=== PATIENT | female | born 1950 | race African-American/Black ===

== ENCOUNTER 2017-02-02 23:05 | Inpatient (IN) | payer OTHER ==
[~2017-02-02] VITALS: Ht 162.6 cm; Wt 113.4 kg
--- NOTE | ~2017-02-02 | 2DMMODE ---
[facility] [address] [place] [address] 2 D/M-MODE ECHOCARDIOGRAM Name: ANGELIQUE BULLOCK Room #: 427-P ADM IN M.R.#: [id number] Admission: 02/03/17 Attend Phys: Robert Prater, Discharge: Date of : 48 Date of Service: 02/03/17 1120 Report #: [id number] THIS REPORT FOR: //name// APPROVED REPORT Study performed: 02/03/2017 09:50:02 EXAM: Comprehensive 2D, Doppler, and color-flow Echocardiogram Patient Location: Bedside Room #: 427 Status: routine BSA: 2.15 HR: 55 bpm BP: 126/55 mmHg Other Information Study Quality: Adequate Indications Diabetes Edema 2D Dimensions RVDd: 44.51 mm LVEF(%): 64.91 (>50%) IVSd: 12.91 (7-11mm) LVOT Diam: 20.93 (18-24mm) LVDd: 40.55 mm PWd: 11.66 (7-11mm) Ascending Ao: 29.01 (22-36mm) LVDs: 26.32 (25-40mm) Aortic Root: 28.85 mm IVC: 24.00 mm Cortez's LVEF: 64.91 % Volumes Left Atrial Volume (Systole) Single Plane 4CH: 104.56 mL Single Plane 2CH: 71.56 mL LA ESV Index: 43.00 mL/m2 Aortic Valve AoV Peak Td.: 1.27 m/s AO Peak Gr.: 6.42 mmHg LVOT Max P.40 mmHg LVOT Max V: 0.92 m/s GRAY Vmax: 2.50 cm2 Mitral Valve E/A Ratio: 2.5 MV Decel. Time: 193.93 ms [facility] [place] [address] 2 D/M-MODE ECHOCARDIOGRAM Name: ANGELIQUE BULLOCK Room #: 427-P ADM IN M.R.#: [id number] Admission: 02/03/17 Attend Phys: Robert Prater, Discharge: Date of : 48 Date of Service: 02/03/17 1120 Report #: [id number] E Max Td.: 1.15 m/s MV A Td.: 0.46 m/s MV PHT: 56.24 ms IVRT: 69.20 ms Pulmonary Valve PV Peak Td.: 1.04 m/s PV Peak Gr.: 4.34 mmHg AK End Vmax: 1.06 m/s Pulmonary Vein P Vein S: 0.23 m/s P Vein A: 0.14 m/s P Vein D: 0.54 m/s P Vein A Dur.: 110.7 msec P Vein S/D Ratio: 0.43 Tricuspid Valve TR Peak Td.: 3.18 m/s TR Peak Gr.: 40.52 mmHg PA Pressure: 56.00 mmHg Left Ventricle The left ventricle is normal size. Mild concentric left ventricular hypertrophy. The left ventricular systolic function is normal. The left ventricular ejection fraction is within the normal range. LVEF is 60-65%. The diastolic function is abnormal. Findings suggest the left atrial pressure is elevated. Right Ventricle Right ventricle is dilated. Atria Left atrium is dilated. Right atrium is dilated. Aortic Valve The aortic valve is normal in structure. No aortic regurgitation is present. There is no aortic valvular stenosis. Mitral Valve The mitral valve is normal in structure. Mild mitral regurgitation. No evidence of mitral valve stenosis. Tricuspid Valve The tricuspid valve is normal in structure. There is moderate tricuspid regurgitation. The right atrial pressure is estimated at mmHg. There is moderate pulmonary hypertension. Pulmonic Valve [facility] [address] [place] [address] 2 D/M-MODE ECHOCARDIOGRAM Name: ANGELIQUE BULLOCK Room #: 427-P ADM IN .R.#: [id number] Admission: 02/03/17 Attend Phys: Robert Prater, Discharge: Date of : 48 Date of Service: 02/03/17 1120 Report #: [id number] The pulmonary valve is normal in structure. Trace to mild pulmonic regurgitation. Great Vessels The aortic root is normal in size. The inferior vena cava is dilated with no inspiratory collapse. Pericardium There is no pericardial effusion. <Conclusion> The left ventricle is normal size. Mild concentric left ventricular hypertrophy. The left ventricular systolic function is normal. Right ventricle is dilated. Left atrium is dilated. Right atrium is dilated. The aortic valve is normal in structure. Mild mitral regurgitation. There is moderate tricuspid regurgitation. The right atrial pressure is estimated at mmHg. There is moderate pulmonary hypertension. <ELECTRONICALLY SIGNED> By: Bari Luong MD 02/03/171119 19 19 Bari Luong MD /INF
--- NOTE | ~2017-02-02 | EKG ---
[address] [place] [address] ELECTROCARDIOGRAM REPORT Name: ANGELIQUE BULLOCK Room #: 427-P ADM IN M.R.#: [id number] Admission: 02/03/17 Attend Phys: Robert Prater MD Discharge: Date of : 48 Report #: [id number] THIS REPORT FOR: //name// [facility] Test Date: 2017-02-03 Test Time: 06:38:10 Pat Name: ANGELIQUE BULLOCK Department: Room: [facility] Gender: F Structural Designer: ALEXUS : 1950 Requested By: Kennedy Olivarez Order Number: [id number] MD: Henri Mattson Measurements Intervals [place] Rate: 55 P: 51 [place]: 210 QRS: 35 QRSD: 69 T: QT: 659 QTc: 631 Interpretive Statements Sinus rhythm Borderline low voltage, extremity leads Nonspecific T abnormalities, lateral leads Compared to ECG 04/21/2016 06:53:44 No significant changes Electronically Signed On 02-03-2017 13:26:21 SURGICAL COORDINATOR by Henri Mattson [email or web address] <ELECTRONICALLY SIGNED> By: Henri Mattson MD 02/03/17 1326 0638 0638 Henri Mattson MD /EPI
--- NOTE | ~2017-02-02 | HC ---
[facility] [place] [address] [address] [place] [address] CONSULTATION Name: ANGELIQUE BULLOCK Room #: 427-P ADM IN M.R.#: [id number] Admission: 02/03/17 Attend Phys: Robert Prater MD Discharge: Date of : 48 Report #: [id number] THIS REPORT FOR: //name// CC: FAM physician/PCP Robert Prater DATE OF SERVICE: 02/03/2017 PERSONAL PHYSICIAN: Robert Prater MD CHIEF COMPLAINT: Left posterior thigh ulcer. HISTORY OF PRESENT ILLNESS: This is a 66-year-old black female who essentially has been bedridden for the past several years, who states that she underwent a knee replacement in 2012, and has never been able to ambulate since that time. The patient was hospitalized back in April to [facility], at that time was noted to have a small approximately stage 2 decubitus ulcer in her left posterior thigh. The patient now has been readmitted for leg edema and pain in her left lower extremity. The patient was noted on admission to have a large decubitus ulcer in that region. The patient states that she and her daughter have been caring for this on their own. The patient states she has no other associated ulcerations that she knows of. We have been asked to assist in the care of this at this time. PAST MEDICAL HISTORY: Significant for history of previous kidney failure, bilateral leg pain and swelling, decubitus ulcer of the left posterior thigh, generalized debility, and chronic lower extremity edema. CURRENT MEDICATIONS: Multiple and I reviewed the patient's medication list. DRUG ALLERGIES: None. SOCIAL HISTORY: The patient does not smoke or drink alcohol. FAMILY HISTORY: Not pertinent to current medical condition. REVIEW OF SYSTEMS: CONSTITUTIONAL: The patient denies fevers or chills. NEUROLOGIC: The patient has overall generalized weakness, but no isolated weakness in arms or legs. EYES: No complaints. ENT: No complaints. CARDIAC: The patient has chronic lower extremity edema without chest pain or palpitations. RESPIRATORY: The patient denies mild shortness of breath with associated cough or wheezes. [facility] [address] [place] [address] CONSULTATION Name: AGNELIQUE BULLOCK Room #: 427-P [facility] IN M.R.#: [id number] Admission: 02/03/17 Attend Phys: Robert Prater MD Discharge: Date of : 48 Report #: [id number] GASTROINTESTINAL: The patient denies nausea, vomiting, or abdominal pain. GENITOURINARY: The patient denies urgency or frequency. MUSCULOSKELETAL: The patient has pain in both legs, left greater than right. SKIN: There is an unstageable decubitus ulcer in her left posterior thigh with stringy slough. PHYSICAL EXAMINATION: VITAL SIGNS: T-max 36.3, pulse 54, respiratory rate 18, and BP 138/88. GENERAL: This is an alert, oriented x3, pleasant black female who is morbidly obese, who is in no acute distress. HEENT: Normocephalic, atraumatic. Mucous membranes are moist. Pupils are round. Sclerae white. NECK: Supple without JVD. LUNGS: Clear. HEART: Regular without murmur. ABDOMEN: Obese, soft, nontender. NEUROLOGIC: Cranial nerves 2-12 are grossly intact. Motor and sensory are grossly intact. EXTREMITIES: The patient moves all extremities spontaneously. Bilateral heels are intact. Distal pulses are intact. Evaluation of sacrococcygeal and gluteal area reveals no signs of pressure changes or ulcerations. Evaluation of the left posterior thigh shows an ulceration approximately 10 x 8 cm, it is foul-smelling with seropurulent drainage. There is no significant tunneling, tracking, or undermining. The wound bed is nearly 100% slough covered with stringing necrotic tissue. Periulcer itself is otherwise intact without significant erythema, warmth, or signs of cellulitis. There is no involvement of deeper structures that I can see. LABORATORY values: White count 7.8, hemoglobin 8.1. Albumin is markedly low at 1.8. Prealbumin is markedly low at 4.2. WOUND CARE COURSE: At this time, I think this wound needs would be better debrided surgically. I will put a consult in for surgeon's to evaluate the patient. We will also start the patient on Dakin's 50% moist gauze to the area cover with an ABD, twice daily. We will order a low air loss mattress for this patient, have turned every 2 hours. We will as possible. We will attempt to try to maximize her oral supplementation of protein for healing. IMPRESSION: 1. Unstageable decubitus ulcer, left posterior thigh. 2. Severe protein-calorie malnutrition with albumin of 1.8, prealbumin of 4.3. 3. Diabetes mellitus. 4. Morbid obesity. 5. Generalized debility. [facility] [address] [place] [address] CONSULTATION Name: ANGELIQUE BULLOCK Room #: 427-P ADM IN M.R.#: [id number] Admission: 02/03/17 Attend Phys: Robert Prater MD Discharge: Date of : 48 Report #: [id number] PLAN: Described in length as above. We will continue to follow the patient. I appreciate the ability to consult. By: 1025 1451 Osvaldo Millard MD /nt
--- NOTE | ~2017-02-02 | HC ---
[facility] [place] [address] [place] [address] CONSULTATION Name: ANGELIQUE BULLOCK Room #: 427-P ADM IN M.R.#: [id number] Admission: 02/03/17 Attend Phys: Robert Prater MD Discharge: Date of : 48 Report #: [id number] THIS REPORT FOR: //name// CC: TELMA physician/PCP Robert Prater TYPE OF REPORT: Infectious diseases consultation. REASON FOR CONSULTATION: I was asked to evaluate concerning left thigh soft tissue infection complicating a decubitus ulcer. HISTORY OF PRESENT ILLNESS: The patient was a 66-year old with underlying history of venous stasis disease with lymphedema along with hypertension and diabetes. She has had increased pain in the left posterior thigh for the last several months. She ran out of pain medications and came into the Emergency Room on 02/03/2017. She has had increased swelling in both lower extremities. She has been noncompliant with many of her medications. She is essentially bedridden for the last several years. She notes that the left posterior thigh wound started draining several weeks ago. ALLERGIES: None known. MEDICATIONS: As noted on her MAR, which were reviewed. These include nitrofurantoin, Tylenol, tramadol, Zanaflex, potassium, melatonin, amlodipine and Lasix. PAST MEDICAL HISTORY: Right total knee arthroplasty in 2013, hysterectomy, chronic lymphedema, hypertension, hyperlipidemia, gastroesophageal reflux, diabetes and chronic kidney disease. FAMILY HISTORY: Noncontributory. SOCIAL HISTORY: Nonsmoker. No significant alcohol intake. REVIEW OF SYSTEMS: Denies any cough, sputum, nausea, vomiting or diarrhea. She now has an indwelling Beasley catheter. PHYSICAL EXAMINATION: VITAL SIGNS: Afebrile and hemodynamically stable. GENERAL: She was alert and cooperative. She is just back from surgical debridement earlier this afternoon. HEENT: Remarkable for poor dentition. NECK: Supple. LUNGS: Clear. HEART: Regular. ABDOMEN: Obese, soft and nontender. EXTREMITIES: Left posterior thigh had a fairly large wound that has recently [facility] [address] [place] [address] CONSULTATION Name: ANGELIQUE BULLOCK Room #: 427-P ADM IN M.R.#: [id number] Admission: 02/03/17 Attend Phys: Robert Prater MD Discharge: Date of : 48 Report #: [id number] been debrided. Had a small amount of bloody drainage. She had induration around this region. Moderate amount of tenderness. A 3+ lymphedema in both lower extremities. LABORATORY STUDIES: Sodium 142, potassium 4.3, bicarbonate of 34 and creatinine 1.5. Alkaline phosphatase 315. Albumin 1.8. Hemoglobin 8.1; WBC 7.8 and platelet count 281,000. Differential unremarkable except for 12% eosinophils. It is noted that she had a higher eosinophil count in February of this year, up to 28,000. Cultures of blood and her thigh are pending. Urine culture pending. Urinalysis with many wbc's and many bacteria. RADIOLOGICAL DATA: MRI of the pelvis, extensive left thigh cellulitis and decubitus ulceration along the upper posterior thigh with associated myositis. No evidence of osteomyelitis. Chest x-ray: Cardiomegaly without congestive heart failure. Left lower lobe atelectasis with elevation of left hemidiaphragm. IMPRESSION: A 66-year old with obesity, diabetes and chronic lymphedema; presents with urinary tract infection and left thigh infected decubitus wound. This has just been debrided. I suspect polymicrobial infection. We would recommend continuing broad antibiotic coverage, pending further culture results. It is noted that her previous cultures from earlier in the year from the urine has included pseudomonas, Enterococcus group B strep and E. coli. She has renal insufficiency, which is longstanding. She also has anemia and mild eosinophilia. RECOMMENDATIONS: Recommend vancomycin and Zosyn adjusted for her renal insufficiency. Await cultures of the urine and wound. Continue with wound care and offloading. Control blood glucose and attempt to control her edema as much as possible. <ELECTRONICALLY SIGNED> By: Kennedy Ratliff MD 02/04/17 1215 19 0457 Kennedy Ratliff MD /nt
--- NOTE | ~2017-02-02 | S ---
[facility] [place] [address] [address] [place] [address] SURGICAL PATH RPT PROCEDURE Name: KERRI BULLOCK Room #: 427-P DIS IN M.R.#: [id number] Admission: 02/03/17 Date of : 48 Discharge: 02/07/17 Report #: [id number] Path Case #: [id number] PATHOLOGY REPORT COLLECTION DATE: 02/03/2017 RECEIVED DATE: 02/06/2017 SUBMITTING PHYS: Dr. Minh Moody OTHER PHYS: Dr. Robert Bullock SPECIMEN(S) RECEIVED: A.Necrotic tissue * * * * * * * * * * * * FINAL DIAGNOSIS: Soft tissue "necrotic tissue": - Necrotic non-viable tissue with acute inflammatory exudate, microabscess formation surrounded by granulation tissue. - There is no evidence of malignancy. (SHA:mml; 02/07/2017) PATHOLOGIST: Paulie Correia M.D. REPORT ELECTRONICALLY SIGNED BY: Paulie Correia M.D. DATE/TIME: 02/07/2017 13:34 * * * * * * * * * * * * GROSS PATHOLOGY: The specimen is received in formalin, labeled "Kerri Bullock, necrotic tissue left posterior thigh," and consists of 6 necrotic segments of calderón soft tissue measuring 3.8 x 2.1 x 0.4 cm in aggregate dimensions. Inspector Tool sections are submitted in cassette A1. (SDY; 02/06/2017) CLINICAL HISTORY: Left posterior thigh decubitus ulcer INITIAL CPT CODE(S): A; 82260 Professional services performed by [facility] at [facility] [address], [place] [address] Technical services performed by [facility] at [address] [place] [address]. [facility] [address] [place] [address] SURGICAL PATH RPT PROCEDURE Name: KERRI BULLOCK Room #: 427-P DIS IN M.R.#: [id number] Admission: 02/03/17 Date of : 48 Discharge: 02/07/17 Report #: [id number] Path Case #: [id number] [facility] [address] [address] PHONE: [phone] DIRECTOR: Franklin Chaudhari M.D. * * * END OF REPORT * * *
[2017-02-02 23:05] VITALS: BP 137/63
[~2017-02-02 23:05] MED LIST: AMLODIPINE BESY10 MG PO; AMLODIPINE BESYL5 MG PO; ASPIR 8181 M1 PO; AUGMENTIN 500-1 EACH PO; COLACE100 MG PO; FUROSEMIDE 40 M40 M1 PO; HYDRALAZINE 2525 MG PO; HYDROCHLOROTH12.5 M1 PO; KEFLEX250 MG PO; KEFLEX500 MG PO; LASIX 40 MG TAB40 M2 PO; LISINOPRIL20 MG PO; MACROBID 100 M100 M2; MACROBID 100 M100 M2 PO; MELATONIN3 MG PO; MELATONIN5 M1 PO; NEURONTIN 300M300 M2; NOHOMEMEDICATIONS; NORVASC5 MG PO; NOVOLOG100 UNIT/1 SUBQ; POTASSIUM20 PO; PROAIR HFA8.5 GM INH; SPIRONOLACTONE25 M1 PO; SPIRONOLACTONE50 MG PO; TRAMADOL 50 MG50 MG; TYLENOL325 MG PO; ZANAFLEX4 MG; ZANAFLEX4 MG PO
[2017-02-03 01:13] LABS: URINE BILIRUBIN NEGATIVE (Negative); URINE BLOOD 1+ (Negative); URINE COLOR YELLOW; URINE GLUCOSE-RANDOM* NEGATIVE (Negative); URINE KETONES NEGATIVE (Negative); URINE PROTEIN (DIPSTICK) 2+ (Negative); URINE SPECIFIC GRAVITY 1.015 (1.005-1.035); URINE UROBILINOGEN 0.2 E.U./dl (0.2-1.0)
[2017-02-03 01:14] LABS: URINE LEUKOCYTES-REFLEX 3+ (Negative)
[2017-02-03 01:29] LABS: CASTS None Seen /LPF (None Seen); CRYSTALS None Seen /LPF (None Seen); SQUAMOUS 0-3 Few /LPF (0-3); URINE RBC 3-10 Few /HPF (0-2); URINE WBC-REFLEX >25 Many /HPF (0-5)
[2017-02-03 01:44] LABS: ABSOLUTE NEUTROPHILS 4.8 thou/uL (1.4-8.2); BASOPHILS 0.6 % (0.0-2.0); HEMOGLOBIN 8.1 gm/dL (12.0-15.0); LYMPHOCYTES 17.2 % (24.0-44.0); MCH 28.2 pg (26.0-34.0); MCHC 32.3 g/dL (28.0-37.0); MCV 87.6 fL (80.0-100.0); MONOCYTES 9.5 % (1.0-8.0); PLATELET COUNT 281 thou/uL (150-400); POLYS 60.7 % (36.0-66.0); RBC 2.85 mil/uL (4.20-5.00); RDW 16.9 % (10.5-14.5); WBC 7.8 thou/uL (4.0-11.0)
[2017-02-03 01:46] LABS: MANUAL DIFF NO
[2017-02-03 01:51] LABS: ANION GAP 2 mmol/L (7-16); BUN 23 mg/dL (7-18); CALCIUM 7.5 mg/dL (8.5-10.1); CHLORIDE 106 mmol/L (98-107); CO2 34 mmol/L (21-32); CREATININE 1.5 mg/dL (0.6-1.0); GLUCOSE 78 mg/dL (74-106); POTASSIUM 4.3 mmol/L (3.5-5.1); SODIUM 142 mmol/L (136-145)
[2017-02-03 01:52] VITALS: BP 149/68
[2017-02-03 02:00] LABS: ALBUMIN 1.8 g/dL (3.4-5.0); ALKALINE PHOSPHATASE 315 U/L (46-116); MAGNESIUM 2.1 mg/dL (1.8-2.4); SGOT 30 U/L (15-37); SGPT 9 U/L (30-65); TOTAL BILIRUBIN 0.4 mg/dL (<0.1-1.0); TOTAL PROTEIN 6.5 g/dL (6.4-8.2); TROPONIN-I < 0.04 ng/mL (<0.06)
[2017-02-03 02:10] VITALS: BP 129/61
[2017-02-03 04:08] VITALS: BP 126/55
[2017-02-03 07:56] LABS: % SATURATION 34 % (20-39); IRON 27 ug/dL (50-170); TIBC 79 ug/dL (250-450); UIBC 52 ug/dL
[2017-02-03 08:00] VITALS: BP 121/40
[2017-02-03 08:23] LABS: FOLIC ACID 4.6 ng/mL (8.6-58.9)
[2017-02-03 15:10] VITALS: BP 132/75
[2017-02-03 19:18] VITALS: BP 113/70
[2017-02-04] VITALS: BP 104/74
[2017-02-04 02:08] LABS: GLYCOHEMOGLOBIN (HGB A1C) 4.3 % (4.8-5.6)
[2017-02-04 03:00] VITALS: BP 100/38
[2017-02-04 08:00] VITALS: BP 95/57
[2017-02-04 16:00] VITALS: BP 117/58
[2017-02-04 20:05] VITALS: BP 99/39
[2017-02-05 04:03] VITALS: BP 105/54
[2017-02-05 08:00] VITALS: BP 111/58
[2017-02-05 13:01] LABS: ANION GAP < 0 mmol/L (7-16); BUN 21 mg/dL (7-18); CALCIUM 7.7 mg/dL (8.5-10.1); CHLORIDE 110 mmol/L (98-107); CO2 37 mmol/L (21-32); CREATININE 1.8 mg/dL (0.6-1.0); GLUCOSE 67 mg/dL (74-106); MAGNESIUM 2.1 mg/dL (1.8-2.4); POTASSIUM 4.6 mmol/L (3.5-5.1); SODIUM 146 mmol/L (136-145)
[2017-02-05 16:00] VITALS: BP 127/98
[2017-02-05 20:30] VITALS: BP 135/68
[2017-02-06 04:30] VITALS: BP 138/88
[2017-02-06 05:55] LABS: HEMATOCRIT 28.4 % (37.0-47.0); MCH 28.4 pg (26.0-34.0); MCHC 31.6 g/dL (28.0-37.0); MCV 89.9 fL (80.0-100.0); RBC 3.16 mil/uL (4.20-5.00); RDW 17.3 % (10.5-14.5); WBC 5.3 thou/uL (4.0-11.0)
[2017-02-06 06:01] LABS: CALCIUM 7.6 mg/dL (8.5-10.1); CREATININE 1.9 mg/dL (0.6-1.0); MAGNESIUM 1.9 mg/dL (1.8-2.4); POTASSIUM 4.6 mmol/L (3.5-5.1)
[2017-02-06 08:17] VITALS: BP 131/65
[2017-02-06 14:50] VITALS: BP 112/46
[2017-02-06 19:55] VITALS: BP 104/51
[2017-02-07 05:21] VITALS: BP 101/60
[2017-02-07 06:50] LABS: HEMATOCRIT 25.3 % (37.0-47.0); HEMOGLOBIN 8.2 gm/dL (12.0-15.0); MCH 28.3 pg (26.0-34.0); MCHC 32.4 g/dL (28.0-37.0); MCV 87.4 fL (80.0-100.0); RBC 2.9 mil/uL (4.20-5.00); RDW 17.3 % (10.5-14.5); WBC 6.6 thou/uL (4.0-11.0)
[2017-02-07 07:24] LABS: CALCIUM 7.7 mg/dL (8.5-10.1); CREATININE 1.8 mg/dL (0.6-1.0); POTASSIUM 4.3 mmol/L (3.5-5.1)
[2017-02-07 08:00] VITALS: BP 139/55
[2017-02-07] MEDS ORDERED: TYLENOL325 MG PO (13:26)
[2017-02-07] MEDS ORDERED: AUGMENTIN 500-1 EACH PO (13:26)
[2017-02-07] MEDS ORDERED: TRAMADOL 50 MG50 MG PO (13:26)
[2017-02-07] MEDS ORDERED: AMLODIPINE BESYL5 M1 PO (13:26)
[2017-02-07] MEDS ORDERED: LASIX 40 MG TAB40 M1 PO (13:27)
[2017-02-07] MEDS ORDERED: K-DUR 20 MEQ T20 MEQ PO (13:27)
[2017-02-07] MEDS ORDERED: COLACE 100 MG100 MG PO (13:27)
== END 2017-02-07 17:36 | DRG 853 ==
LOC: ER 23:05 → EROBS 02-03 00:35 → 4E 02-03 00:35
PROVIDERS: Emergency Medicine; Internal Medicine; Nurse Practitioner Acute Care
PROC: 05HB33Z Insertion of Infusion Device into Right Basilic Vein, Percutaneous Approach (ICD-10-PCS; principal; 2017-02-03)
PROC: B54MZZA Ultrasonography of Right Upper Extremity Veins, Guidance (ICD-10-PCS; principal; 2017-02-03)
PROC: 0JBM0ZZ Excision of Left Upper Leg Subcutaneous Tissue and Fascia, Open Approach (ICD-10-PCS; principal; 2017-02-03)
DX: A41.9 Sepsis, unspecified organism (principal); L89.224 Pressure ulcer of left hip, stage 4; E43 Unspecified severe protein-calorie malnutrition; N39.0 Urinary tract infection, site not specified; Z68.41 Body mass index [BMI] 40.0-44.9, adult; K52.1 Toxic gastroenteritis and colitis; E78.5 Hyperlipidemia, unspecified; K21.9 Gastro-esophageal reflux disease without esophagitis; I12.9 Hypertensive chronic kidney disease with stage 1 through stage 4 chronic kidney disease, or unspecified chronic kidney disease; D64.9 Anemia, unspecified; N18.3 Chronic kidney disease, stage 3 (moderate); E11.22 Type 2 diabetes mellitus with diabetic chronic kidney disease; Z96.653 Presence of artificial knee joint, bilateral; E66.01 Morbid (severe) obesity due to excess calories; T36.95XA Adverse effect of unspecified systemic antibiotic, initial encounter; Z90.710 Acquired absence of both cervix and uterus; Z79.899 Other long term (current) drug therapy; Z74.01 Bed confinement status; Y92.89 Other specified places as the place of occurrence of the external cause; Z28.21 Immunization not carried out because of patient refusal
CPT/HCPCS: 10084; 27000; 50010; 50101; 50386; 50403; 62110; 62850; 70005

== ENCOUNTER 2018-06-27 11:52 | Inpatient (IN) | payer OTHER ==
[2018-06-27] VITALS (18 sets, daily range): BP systolic 66–165; BP diastolic 38–82
[~2018-06-27] VITALS: Ht 162.6 cm; Wt 101.6 kg
[~2018-06-27 11:52] MED LIST changes: +AMLODIPINE BESYL5 M1 PO; +COLACE 100 MG100 MG PO; +K-DUR 20 MEQ T20 MEQ PO; +LASIX 40 MG TAB40 M1 PO; +TRAMADOL 50 MG50 MG PO
[2018-06-27 13:09] LABS: HEMATOCRIT 36.4 % (37.0-47.0); HEMOGLOBIN 11.7 gm/dL (12.0-15.0); MCH 29.3 pg (26.0-34.0); MCHC 32.1 g/dL (28.0-37.0); MCV 91.4 fL (80.0-100.0); RBC 3.99 mil/uL (4.20-5.00); RDW 15.6 % (10.5-14.5); WBC 6.7 thou/uL (4.0-11.0)
[2018-06-27 13:51] LABS: CALCIUM 8.9 mg/dL (8.5-10.1); CREATININE 2.1 mg/dL (0.6-1.0); POTASSIUM 3.8 mmol/L (3.5-5.1)
--- NOTE | 2018-06-27 14:00 | NUR ---
[facility] CALLED AND REPORTED THAT THEY WOULD NO LONGER BE SEEING PT IN HER HOME PT IS NON COMPLIANT AND NOT SAFE TO LIVE IN HOME DUE TO BEING NON AMBULATORY. PT HAS BEEN NON AMBULATORY FOR OVER 3 YRS AND LIVES IN THE HOME WITH HER DTR LUCIO BRITO POA [phone]. LUCIO STATES THAT DR REYES MAKES HOME VISITS TO SEE PT BUT SHE REPORTS THAT THE DR IS VERY DIFFICULT TO GET A HOLD OF AND WOULD LIKE TO SWITCH DR'S. DAUGHTER ALSO REPORTS THAT PT HAS AN EMPTY O2 TANK IN THE GARAGE. PT HAS HX OF NON COMPLIANCE WITH USING O2 OR TAKING MEDICATIONS. PT STATES SHE DOES NOT TAKE ANY MEDICATIONS SHE CANNOT AFFORD THEM. PT HAS BEEN PROVIDED WITH [facility]CRIPTION [facility]ANCE IN THE PAST BUT STILL DOES NOT FILL MEDICAITIONS.
--- NOTE | 2018-06-27 15:26 | EKG ---
[address] [facility] [employer] [place] [facility] [place] [address] ELECTROCARDIOGRAM REPORT Name: ANGELIQUE BULLOCK Room #: 170-1 ADM IN M.R.#: [id number] ������������������ Admission: 06/27/18 ������������������ Attend Phys: Saba Pillai MD Discharge: ������������������ Date of : 48 Report #: [id number] ����������������������������������������������������������������� [id number] THIS REPORT FOR: //name// [facility] ED Test Date: 2018-06-27 Test Time: 12:33:56 Pat Name: ANGELIQUE BULLOCK Department: Room: 170 Gender: F Pbx Supervisor: TIMOTHY : 1950 Requested By: Hannah Fletcher Order Number: [id number] MD: Romel Michaud Measurements Intervals [place] Rate: 54 P: 42 [place]: 221 QRS: 10 QRSD: 76 T: 153 QT: 596 QTc: 565 Interpretive Statements Sinus bradycardia Prolonged [place] interval Nonspecific T abnrm, anterolateral leads Prolonged QT interval Compared to ECG 02/03/2017 06:38:10 Prolonged QT interval now present Electronically Signed On 06-27-2018 15:25:57 CDT by Romel Michaud [email or web address] ��������������������������������������������� <ELECTRONICALLY SIGNED> ���������������������������������������� By: Romel Michaud MD, [facility] ��������������������������������������������� 06/27/18 1525 1233 1233 Romel Michaud MD, [facility] /EPI
[2018-06-27 18:34] LABS: BE(vivo) -2.6 mmol/L (-2 to +3); HCO3 28.5 mmol/L (22.0-26.0); PCO2 89.8 mmHg (35.0-45.0); PO2 115.1 mmHg (80.0-100.0); sO2 96.4 % (92.0-98.0)
--- NOTE | 2018-06-27 19:23 | NUR ---
Assumed pt care from the ER, upon admission pt was very lethargic, she could hardly be understood when spoken to. She is alert and oriented x 3, but bery hard to arouse. Beasley catheter draining foul smelling greenish blue urine. Pt is unkept. Blood pressure dropped to 70/40 and heart rate in the 40's and would fluctuate lower. RAD team called, placed on trendelenberg vs monitored. Dr. Pillai was informed, IV bolus given. Order to transfer to ICU put as per Dr. Pinto who spoke to Dr. Pillai, report given to ICU nurse. Pt transfered to 245
[2018-06-27 21:06] LABS: BE(vivo) 0.6 mmol/L (-2 to +3); HCO3 30.7 mmol/L (22.0-26.0); PO2 86.5 mmHg (80.0-100.0); sO2 93.5 % (92.0-98.0)
[2018-06-27 21:10] LABS: PCO2 84.6 mmHg (35.0-45.0); pH 7.177 (7.360-7.450)
[2018-06-27 22:04] LABS: BE(vivo) -4.8 mmol/L (-2 to +3); HCO3 26.2 mmol/L (22.0-26.0); PO2 61.9 mmHg (80.0-100.0); sO2 81.7 % (92.0-98.0)
[2018-06-27 22:05] LABS: pH 7.112 (7.360-7.450)
[2018-06-27 22:38] LABS: HEMATOCRIT 37.7 % (37.0-47.0); MCH 29.9 pg (26.0-34.0); MCHC 31.9 g/dL (28.0-37.0); MCV 93.7 fL (80.0-100.0); RBC 4.02 mil/uL (4.20-5.00); RDW 16.5 % (10.5-14.5); WBC 6.3 thou/uL (4.0-11.0)
[2018-06-27 22:53] LABS: ANION GAP 4 mmol/L (7-16); BUN 20 mg/dL (7-18); CALCIUM 8.3 mg/dL (8.5-10.1); CHLORIDE 105 mmol/L (98-107); CO2 32 mmol/L (21-32); GLUCOSE 104 mg/dL (74-106); MAGNESIUM 2.3 mg/dL (1.8-2.4); POTASSIUM 3.8 mmol/L (3.5-5.1); SGOT 28 U/L (15-37); SGPT 12 U/L (30-65); SODIUM 141 mmol/L (136-145); TOTAL BILIRUBIN 0.2 mg/dL (<0.1-1.0); TOTAL PROTEIN 8.1 g/dL (6.4-8.2); TROPONIN-I <0.06 ng/mL (<0.06)
[2018-06-27 23:59] LABS: URINE BILIRUBIN NEGATIVE (Negative); URINE BLOOD 2+ (Negative); URINE CLARITY CLOUDY; URINE COLOR YELLOW; URINE GLUCOSE-RANDOM* NEGATIVE (Negative); URINE KETONES NEGATIVE (Negative); URINE LEUKOCYTES 2+ (Negative); URINE NITRITE POSITIVE (Negative); URINE PROTEIN (DIPSTICK) 1+ (Negative); URINE SPECIFIC GRAVITY 1.015 (1.005-1.035); URINE UROBILINOGEN 0.2 E.U./dl (0.2-1.0)
[2018-06-28] VITALS (49 sets, daily range): BP systolic 91–150; BP diastolic 26–86
[2018-06-28 00:09] LABS: BACTERIA >30 Many /HPF (None Seen); SQUAMOUS 4-10 Moderate /LPF (0-3); WBC CLUMPS Moderate (None Seen)
[2018-06-28 00:10] LABS: COARSE GRANULAR CASTS 0-3 Few /LPF (None Seen); CRYSTALS None Seen /LPF (None Seen); HYALINE CASTS 4-10 Moderate /LPF (None Seen)
[2018-06-28 00:49] LABS: BE(vivo) -2.2 mmol/L (-2 to +3); PCO2 61.5 mmHg (35.0-45.0); PO2 86.5 mmHg (80.0-100.0); sO2 94.8 % (92.0-98.0)
[2018-06-28 00:50] LABS: pH 7.244 (7.360-7.450)
--- NOTE | 2018-06-28 05:11 | NUR ---
Received pt from floor.Pt opens eyes to voice, mumbling words. lethargic and drowsy. on bipap. abg's done x2, cont to show critical despite changes in settings. Monitor shows SB with Hr 45. BP low - orders for fluid bolus and dopamine started. good uo. pt temp low -dinorah hugger on. Dr dallas arrived last night to intubate patient. Updated pt daughter. See [facility] for assessment,cont plan of care.
[2018-06-28 05:29] LABS: BE(vivo) 4.4 mmol/L (-2 to +3); HCO3 28.4 mmol/L (22.0-26.0); PCO2 39.8 mmHg (35.0-45.0); PO2 88.7 mmHg (80.0-100.0); pH 7.471 (7.360-7.450); sO2 97.2 % (92.0-98.0)
[2018-06-28 05:40] LABS: HEMATOCRIT 33.7 % (37.0-47.0); HEMOGLOBIN 10.8 gm/dL (12.0-15.0); MCH 29.2 pg (26.0-34.0); MCHC 32.1 g/dL (28.0-37.0); MCV 90.8 fL (80.0-100.0); RBC 3.71 mil/uL (4.20-5.00); RDW 15.5 % (10.5-14.5); WBC 6.7 thou/uL (4.0-11.0)
[2018-06-28 05:42] LABS: CALCIUM 8.6 mg/dL (8.5-10.1); CREATININE 1.9 mg/dL (0.6-1.0); POTASSIUM 3.3 mmol/L (3.5-5.1)
--- NOTE | 2018-06-28 08:01 | EKG ---
[place] [address] [place] [address] ELECTROCARDIOGRAM REPORT Name: ANGELIQUE BULLOCK Room #: 245-P ADM IN M.R.#: [id number] ������������������ Admission: 06/27/18 ������������������ Attend Phys: Saba Pillai MD Discharge: ������������������ Date of : 48 Report #: [id number] ����������������������������������������������������������������� [id number] THIS REPORT FOR: //name// [facility] Test Date: 2018-06-27 Test Time: 18:26:27 Pat Name: ANGELIQUE BULLOCK Department: Room: [facility] Gender: F Market [employer] Worker: Yaniv BENÍTEZ : 1950 Requested By: Saba Pillai Order Number: [id number] MD: Romel Michaud Measurements Intervals [place] Rate: 50 P: 52 [place]: 227 QRS: 32 QRSD: 78 T: 171 QT: 690 QTc: 630 Interpretive Statements Sinus bradycardia Prolonged [place] interval Nonspecific ST and T wave abnormality Prolonged QT interval Compared to ECG 06/27/2018 12:33:56 No significant change was found Electronically Signed On 06-28-2018 8:00:49 CDT by Romel Michaud [email or web address] ��������������������������������������������� <ELECTRONICALLY SIGNED> ���������������������������������������� By: Romel Michaud MD, [facility] ��������������������������������������������� [id number] 25 25 Romel Michaud MD, [facility] /EPI
--- NOTE | 2018-06-28 08:05 | EKG ---
[address] [place] [address] ELECTROCARDIOGRAM REPORT Name: ANGELIQUE BULLOCK Room #: 245-P ADM IN M.R.#: [id number] ������������������ Admission: 06/27/18 ������������������ Attend Phys: Saba Pillai MD Discharge: ������������������ Date of : 48 Report #: [id number] ����������������������������������������������������������������� [id number] THIS REPORT FOR: //name// [facility] Test Date: 2018-06-27 Test Time: 21:35:22 Pat Name: ANGELIQUE BULLOCK Department: Room: [facility] Gender: F Contractor General Building: Yaniv BENÍTEZ : 1950 Requested By: Walt Romero Order Number: [id number] MD: Romel Michaud Measurements Intervals [place] Rate: 47 P: 43 [place]: 227 QRS: 33 QRSD: 108 T: 155 QT: 695 QTc: 615 Interpretive Statements Sinus bradycardia Borderline prolonged [place] interval Nonspecific T wave abnormality Prolonged QT interval Compared to ECG 06/27/2018 12:33:56 No significant change was found Electronically Signed On 06-28-2018 8:05:13 CDT by Romel Michaud [email or web address] ��������������������������������������������� <ELECTRONICALLY SIGNED> ���������������������������������������� By: Romel Michaud MD, [facility] ��������������������������������������������� [id number] 34 34 Romel Michaud MD, [facility] /EPI
--- NOTE | 2018-06-28 08:41 | NUR ---
ORDERS FOR PT EVAL AND TREAT RECEIVED. Pt WITH LOW BP AND HR LAST NIGHT, ON TULIO HUGGER FOR WARMING, AND WAS LETHARGIC. INITIALLY ON BIPAP. RAD TEAM CALLED. Pt LATER INTUBATED. WILL NEED NEW PT ORDERS ONCE Pt APPROPRIATE FOR THERAPY SERVICES.
--- NOTE | 2018-06-28 09:13 | NUR ---
OT ORDER RECEIVED AND APPRECIATED. PATIENT IS INTUBATED AND SEDATED AT THIS TIME. PATIENT WILL BE PLACED ON HOLD AND WILL REQUIRE NEW ORDERS TO RESUME THERAPY WHEN PATIENT IS APPROPRIATE TO PARTICIPATE IN THERAPIES.
--- NOTE | 2018-06-28 10:11 | NUR ---
VAT NURSE CONSULTED LAST 06/27 AFTER HOURS- THIS AM SPOKE TO THE IVU NURSE, SHE STATED SHE HAS APPROPRIATE ACCESS AT THIS TIME AND LINE IS NOT CURRENTLY NECESSARY. CENTRAL LINE INSERTION IS ON HOLD AT THIS TIME
--- NOTE | 2018-06-28 13:35 | NUR ---
INITIAL ASSESSMENT: Pt evaluated for d/c planning needs. Reviewed chart and spoke with nurse and pt's daughter. Pt is currently on the ventilator. Pt was living at home with her daughter. Pt is confined to bed. Daughter has been on disability from her job since January and has been taking care of pt at home. Pt was current with [facility] prior to admission. [facility] called and said they will not be able to provide care for pt on d/c from hospital. They do not feel she is in a safe environment. Pt was hospitalized and went to [facility] February through April. Pt has been to [facility] past, [facility] and [facility]. Nurse reported that pt has no skin breakdown on backside. Pt has blister on front of leg. There is documentation in the chart that pt was non-compliant with medication and oxygen. Will remain available to assist as needed and make referrals as appropriate.
[2018-06-29] VITALS (59 sets, daily range): BP systolic 85–137; BP diastolic 39–82
[2018-06-29 05:01] LABS: HEMATOCRIT 33.3 % (37.0-47.0); HEMOGLOBIN 10.9 gm/dL (12.0-15.0); MCH 29.2 pg (26.0-34.0); MCHC 32.6 g/dL (28.0-37.0); MCV 89.3 fL (80.0-100.0); RBC 3.73 mil/uL (4.20-5.00); RDW 15.3 % (10.5-14.5); WBC 5.4 thou/uL (4.0-11.0)
[2018-06-29 05:08] LABS: BE(vivo) 1.9 mmol/L (-2 to +3); HCO3 25.8 mmol/L (22.0-26.0); PCO2 37.6 mmHg (35.0-45.0); PO2 98.5 mmHg (80.0-100.0); pH 7.454 (7.360-7.450); sO2 97.8 % (92.0-98.0)
[2018-06-29 05:14] LABS: CALCIUM 8.2 mg/dL (8.5-10.1); CREATININE 2.3 mg/dL (0.6-1.0); POTASSIUM 3.2 mmol/L (3.5-5.1)
--- NOTE | 2018-06-29 07:30 | NUR ---
PT INTUBATED AND ON VENT; SEDATED WITH PROPOFOL. BP CONTINUES TO BE SOFT, BUT DID NOT REQUIRE DOPAMINE TO BE RESTARTED OVERNIGHT. PT'S TEMP LOW AT 93.0 F; PATRICIA HUGGER APPLIED. PT SLOWLY REWARMED AND TEMP WAS IN NORMAL RANGE THIS AM. HR INITIALLY IN THE 40s, BUT INCREASED TO THE 50s AFTER PATRICIA HUGGER APPLIED. HR STAYED IN THE 50s THE REMAINDER OF THE NIGHT. ON PROPOFOL, PT OPENS EYES AND WITHDRAWALS TO PAIN. PT BECOMES VERY AGITATED WHEN SUCTIONING, REPOSITIONING, OR WITH ANY STIMULATION. AFTER CARE IS GIVEN, PT CALMS BACK DOWN QUICKLY. EARLIER THIS AM, PT'S URINE OUTPUT DECREASED. [facility] [employer] DEPUTY DISTRICT CUSTOMS DIRECTOR NOTIFIED, AND SAID TO CALL BACK WITH THIS MORNING'S CREATININE. CREATININE 2.3, 500 CC BOLUS ORDERED. BOLUS FINISHED UP AT SHIFT CHANGE, REPORT GIVEN TO ONCOMING NURSE TO NOTIFY PHYSICIAN IF URINE OUTPUT DOES NOT DIMENSION STONE QUARRY SUPERVISOR. PT DOES HAVE CHRONIC KIDNEY FAILURE, BUT HAD ADEQUATE URINE OUTPUT AFTER GIVEN LASIX ON ADMISSION AND YESTERDAY DURING THE DAY. POTASSIUM LOW AGAIN THIS AM. DEPUTY DISTRICT CUSTOMS DIRECTOR NOTIFIED AND 40 MEQ KCL ORDERED. WILL CONTINUE TO MONITOR.
--- NOTE | 2018-06-29 08:15 | NUR ---
WOUND CONSULT: PT. WAS SEEN ON 06/28/[address] YODER AND MYSELF. PT. IS WELL KNOWN TO THE WOUND CARE TEAM. PT. HAS A STAGE 3 PRESSURE ULCER TO HER RIGHT LATERAL THIGH. NO SIGNS OR SYMPTOMS OF INFECTION ARE NOTED AT THIS TIME. RECOMMENDAITONS: WOUND CARE TO RIGHT LATERAL THIGH: GENTLY CLEANSE AREA WITH WOUND CLEANSER OR NORMAL SALINE, PACK WITH AQUACEL AG TO WOUND BED, COVER WITH BORDERED FOAM, COMPLETE CARES DAILY AND PRN. PT. AND STAFF NURSE WERE INSTRUCTION ON PLAN OF CARE.
--- NOTE | 2018-06-29 09:44 | 2DMMODE ---
[facility] [employer] [place] [address] 2 D/M-MODE ECHOCARDIOGRAM Name: ANGELIQUE BULLOCK Room #: 245-P ADM IN M.R.#: [id number] ������������� Admission: 06/27/18 ������������� Attend Phys: Saba Pillai MD Discharge: ��� ������������� ��� Date of : 48 Date of Service: 06/29/18 0944 �� Report #: [id number] �������� ��������������������������������������������[id number] THIS REPORT FOR: //name// APPROVED REPORT Study performed: 06/29/2018 08:17:20 EXAM: Comprehensive 2D, Doppler, and color-flow Echocardiogram Patient Location: ICU Room #: [facility] Status: routine BSA: 2.08 HR: 58 bpm BP: 96/42 mmHg Rhythm: Bradycardia Other Information Study Quality: Adequate Indications Hypotension, bradycardia. Hx. CHF, renal failure, SOA, palpitations. 2D Dimensions RVDd: 45.12 mm IVSd: 14.57 (7-11mm) LVOT Diam: 20.16 (18-24mm) LVDd: 44.40 mm PWd: 14.10 (7-11mm) Ascending Ao: 33.92 (22-36mm) LVDs: 24.37 (25-40mm) Aortic Root: 35.56 mm Volumes Left Atrial Volume (Systole) Single Plane 4CH: 72.17 mL Single Plane 2CH: 41.17 mL LA ESV Index: 29.00 mL/m2 Aortic Valve AoV Peak Td.: 1.69 m/s AO Peak Gr.: 11.46 mmHg LVOT Max P.20 mmHg LVOT Max V: 1.25 m/s GRAY Vmax: 2.35 cm2 Mitral Valve E/A Ratio: 2.2 MV Decel. Time: 224.34 ms [facility] [employer] [place] [address] 2 D/M-MODE ECHOCARDIOGRAM Name: ANGELIQUE BULLOCK Room #: 245-P [facility] IN .R.#: [id number] ������������� Admission: 06/27/18 ������������� Attend Phys: Saba Pillai MD Discharge: ��� ������������� ��� Date of : 48 Date of Service: 06/29/18 0944 �� Report #: [id number] �������� ��������������������������������������������[id number] MV E Max Td.: 1.02 m/s MV A Td.: 0.46 m/s MV PHT: 65.06 ms IVRT: 101.50 ms Pulmonary Valve PV Peak Td.: 0.95 m/s PV Peak Gr.: 3.60 mmHg Pulmonary Vein P Vein S: 0.31 m/s P Vein A: 0.29 m/s P Vein D: 0.61 m/s P Vein A Dur.: 179.9 msec P Vein S/D Ratio: 0.51 Tricuspid Valve TR Peak Td.: 2.57 m/s RAP Estimate: 10.00 mmHg TR Peak Gr.: 26.48 mmHg PA Pressure: 36.00 mmHg Left Ventricle The left ventricle is normal size. Mild concentric left ventricular hypertrophy. The left ventricular systolic function is normal. The left ventricular ejection fraction is within the normal range. LVEF is 55-60%. The left ventricular diastolic function is normal. Right Ventricle Right ventricle is mildly dilated. The right ventricular systolic function is normal. Atria Left atrium is mildly dilated. The right atrium size is normal. Aortic Valve The aortic valve is normal in structure, trileaflet. No aortic regurgitation is present. There is no aortic valvular stenosis. Mitral Valve The mitral valve is normal in structure. Trace mitral regurgitation. No evidence of mitral valve stenosis. Tricuspid Valve The tricuspid valve is normal in structure. Mild tricuspid regurgitation. Estimated PAP of 36 mmHg. There is mild pulmonary hypertension. [address] [address] 2 D/M-MODE ECHOCARDIOGRAM Name: ANGELIQUE BULLOCK Room #: 245-P ADM IN M.R.#: [id number] ������������� Admission: 06/27/18 ������������� Attend Phys: Saba Pillai MD Discharge: ��� ������������� ��� Date of : 48 Date of Service: 06/29/18 0944 �� Report #: [id number] �������� ��������������������������������������������[id number] Pulmonic Valve Pulmonic valve is not well visualized. Trace pulmonic regurgitation. Great Vessels The aortic root is normal in size. The ascending aorta is normal in size. IVC is normal in size and collapses <50% with inspiration. Patient is on ventilator. Pericardium There is no pericardial effusion. <Conclusion> The left ventricle is normal size. LVEF is 55-60%. Right ventricle is mildly dilated. Left atrium is mildly dilated. The aortic valve is normal in structure, trileaflet. The mitral valve is normal in structure. Trace mitral regurgitation. The tricuspid valve is normal in structure. Mild tricuspid regurgitation. Estimated PAP of 36 mmHg. There is mild pulmonary hypertension. Pulmonic valve is not well visualized. Trace pulmonic regurgitation. There is no pericardial effusion. ��������������������������������������������� <ELECTRONICALLY SIGNED> ���������������������������������������� By: Tino Grande MD ��������������������������������������������� 06/29/1844 Tino Grande MD /INF
--- NOTE | 2018-06-29 10:11 | NUR ---
If unable to extubate in next 24-48 hrs, consider start enteral nutrition of vital high protein to reach goal of 55ml/hr
[2018-06-29 11:45] LABS: BE(vivo) -0.2 mmol/L (-2 to +3); HCO3 27.1 mmol/L (22.0-26.0); PO2 149.5 mmHg (80.0-100.0); sO2 98.7 % (92.0-98.0)
[2018-06-29 11:47] LABS: pH 7.295 (7.360-7.450)
[2018-06-29 12:21] LABS: POTASSIUM 3.9 mmol/L (3.5-5.1)
--- NOTE | 2018-06-29 14:05 | NUR ---
WOUND FOLLOW UP: PT. WAS SEEN TODAY BY DR. YODER AND MYSELF. PT. IS CLINICALLY BETTER AT THIS TIME. RECOMMENDATIONS: CONTINUE WITH CURRENT PLAN OF CARE. PT. AND STAFF NURSE WERE INSTRUCTED ON PLAN OF CARE.
--- NOTE | 2018-06-29 14:48 | NUR ---
CONSULTED TO PLACE A PICC LINE FOR A PATIENT IN THE ICU. THIS PATIENT IS A PATIENT WITH A HISTORY OF CKD 3 WITH WORSENING KIDNEY FUNCTION. CENTRAL LINE WAS MORE APPROPRIATE PER POLICY. ASSEMBLY CLEANER UPDATED AND SHE OBTAINED CONSENT. A PRE- PROCEDURE TIMOUT WAS COMPLETED. THE RIGHT JUGULAR WAS WIDLEY PATENT. A #6F TRIPLE LUMEN JACC CENTRAL LINE WAS PLACED (LOT#[id number], EXP 11/19/18) PER HOSPITAL POLICY. LINE WAS 25CM AND ADVANCED WITHOUT DIFFICULTY TO 7CM EXTERNAL. A STAT CHEST XRAY WAS ORDERED AND LINE SECURED. ASSEMBLY CLEANER NOTIFIED RADIOLOGIST READ LINE IN APPROPRIATE POSITION AT THE CAVOATRIAL JUNCTION. LINE RELEASED FOR USE
--- NOTE | 2018-06-29 17:20 | HC ---
[facility] [place] [address] CONSULTATION Name: ANGELIQUE BULLOCK Room #: 245-P ADM IN M.R.#: [id number] Admission: 06/27/18 ������������������ Attend Phys: Saba Pillai MD Discharge: ������������������ Date of : 48 Report #: [id number] THIS REPORT FOR: //name// CC: FAM unknown Saba Pillai PULMONARY CONSULTATION REFERRAL PHYSICIAN: Dr. Pillai. REASON FOR REFERRAL: Hypotension, hypoxia. HISTORY OF PRESENT ILLNESS: The patient is a 68-year-old -[place] female who was brought to the Emergency Room with hypoxia. She was found to be in renal failure. Since admission, she developed worsening hypoxia and hypotension. A Pulmonary consultation was requested. According to the nursing, the patient was noted to be more obtunded earlier today. She has been placed on BiPAP. Over the next few hours, she is arousable more, though requiring BiPAP. Review of the records suggest that the patient has a history of sleep apnea. SHE HAS BEEN INTOLERANT TO THE USE OF CPAP. She also has a history of medical noncompliance. The patient is arousable, though appears weak and semi-somnolent. Otherwise, history is limited as the patient is not able to provide adequate answers. PAST MEDICAL HISTORY: Notable for being bedridden over the last 3-5 years, obesity, obstructive sleep apnea, INTOLERANT TO THE USE OF CPAP, hypertension, gastroesophageal reflux disease, diabetes mellitus type 2, chronic kidney disease and status post right total knee replacement. ALLERGIES: None to medications. MEDICATIONS: Home medication list is reviewed in the MAR. FAMILY HISTORY: Noncontributory. SOCIAL HISTORY: No history of tobacco or alcohol use. REVIEW OF SYSTEMS: Deferred as the patient is not able to provide adequate answers. PHYSICAL EXAMINATION: GENERAL: On examination, she is arousable, tolerating BiPAP, appears semi-somnolent, weak. [facility] [address] [place] [address] CONSULTATION Name: ANGELIQUE BULLOCK Room #: 245-P [facility] IN ..#: [id number] Admission: 06/27/18 ������������������ Attend Phys: Saba Pillai MD Discharge: ������������������ Date of : 48 Report #: [id number] VITAL SIGNS: Temperature currently is 93 degrees Fahrenheit. The patient was normothermic on admission with temperature of 97.5 degrees Fahrenheit. Pulse is 45, respiratory rate is 20 and blood pressure is currently 130/70 mmHg, systolic had been as low as 67 mmHg. Saturation is 98%. HEENT: Normocephalic, atraumatic. NECK: Supple, without any lymphadenopathy or thyromegaly. CHEST: Breath sounds are fair due to poor effort. CARDIOVASCULAR: Normal S1, S2. There are no murmurs or gallops. There is no JVD. There is no carotid bruit. Pulses are 2+/4+ bilaterally. ABDOMEN: Soft, nontender. No organomegaly or masses felt. GENITOURINARY: Deferred. RECTAL: Deferred. EXTREMITIES: Notable for lymphedema in both lower extremities. I cannot discern cyanosis. No obvious evidence of clubbing. NEUROLOGIC: Semi-somnolent, arousable; moves upper extremities, but not lower. LABORATORY DATA: Portable chest x-ray shows small lung volumes, cardiomegaly, increased vascular markings. BNP 7900. EKG shows sinus bradycardia. Sodium 141, potassium 3.8, chloride 105, CO2 is 32, BUN is 20 and creatinine 2.0; baseline creatinine had ranged around 1.5 to 2.0. Liver enzymes were grossly unremarkable. WBC 6300, hemoglobin 12.0 and platelets are normal. Albumin 3.0. Arterial blood gas earlier today revealed pH of 7.12, pCO2 of 89 and pO2 of 115 on 3 liters of O2. Echocardiogram from 01/2017 showed moderate pulmonary hypertension, normal LV function and dilated both left and right atrium. No significant valvular heart disease. Pulmonary artery pressure measured 56 mmHg. IMPRESSION: 1. [id number] hypercapnic hypoxic respiratory failure in this 68-year-old morbidly obese -[place] female. Etiology is probably related to underlying obstructive sleep apnea with probable obesity hypoventilation syndrome. Other processes may be contributing in regards to hypotension and bradycardia. 2. Hypotension. She has a history of hypotension in the past. This may be related to volume depletion. Cannot rule out possible sepsis. 3. Bradycardia. Again, past history of bradycardia, etiology is unknown. May be related to underlying untreated sleep apnea. 4. Pulmonary hypertension, cor pulmonale with chronic lower extremity edema. 5. Morbid obesity. 6. Generalized debility, progressive weakness, immobility over the last 3-5 years. 7. Medical noncompliance. 8. History of hypertension. 9. Chronic kidney disease. 10. Diabetes mellitus type 2. 11. Iron-deficiency anemia. [facility] [address] [place] [address] CONSULTATION Name: KOBEANGELIQUE Room #: 245-P [facility] IN M.R.#: [id number] Admission: 06/27/18 ������������������ Attend Phys: Saba Pillai MD Discharge: ������������������ Date of : 48 Report #: [id number] RECOMMENDATIONS: I think the patient will benefit from elective intubation given hemodynamic instability along with profound hypercapnia along with respiratory failure. Would recommend cultures, broad-spectrum antibiotics. IV fluids and vasopressors will be recommended. Follow up bradycardia closely. Dopamine has helped. Need to monitor urine output closely, given history of chronic kidney disease. Of note, upper airways examined during the intubation procedure. The upper airway appeared to be a markedly redundant and narrowed. This will be consistent with a history of sleep apnea. Also, note that the upper airway appeared quite redundant and narrowed, which will be consistent with obstructive sleep apnea. Weaning from mechanical ventilation may be difficult. DVT and GI prophylaxis recommended. Critical care 1 hour. Thank you for this consultation. ��������������������������������������������� <ELECTRONICALLY SIGNED> ���������������������������������������� By: Walt Romero MD ��������������������������������������������� 06/29/18 1720 1622 0138 Walt Romero MD /nt
[2018-06-29 17:33] LABS: BE(vivo) 1.1 mmol/L (-2 to +3); HCO3 27.2 mmol/L (22.0-26.0); PO2 136.6 mmHg (80.0-100.0); pH 7.353 (7.360-7.450); sO2 98.6 % (92.0-98.0)
--- NOTE | 2018-06-29 19:39 | NUR ---
ASSUMED CARE AT 0700. PT IS INTUBATED AND SEDATED. PT HAD CPAP TRIAL TODAY. PT HAD CRITICAL pH WHEN ABG'S WERE CHECKED POST CPAP TRIAL. LEAD NETWORK ENGINEER NOTIFED. ORDER RECEIVED FOR CENTRAL LINE PLACEMENT TODAY AND LINE PLACED BY IV THERAPY RN. CONSENT SIGN PER TELEPHONE CONVERSATION WITH PT'S DAUGHTER AND 2 RN'S. PT HAD VERY MINIMAL URINE OUTPUT TODAY OF 125CC OF URINE. PHYSICIAN NOTIFIED IN MIDDLE OF SHIFT AND AT 1745 OF LOW URINE OUTPUT. ORDER FOR LASIX RECEIVED AND GIVEN ORDERED. PT HAD LOW TEMPERATURE AT 1700 AND PATRICIA HUGGER APPLIED. HR REMAINS 50'S-60 AND BLOOD PRESSURES REMAIN SOFT HOWEVER PT DID NOT NEED TO BE RESTARTED ON PRESSORS AT THIS TIME. SEE ASSESSMENTS. REPORT GIVEN TO ONCOMING RN.
[2018-06-30] VITALS (33 sets, daily range): BP systolic 79–154; BP diastolic 34–75
--- NOTE | 2018-06-30 01:18 | NUR ---
PT. BP STARTED TO DROP AROUND MIDNIGHT, MULTIPLE MAPS BELOW 60. DOPAMINE GTT STARTED BACK AT LOW DOSE. LOW DOSE NOT EFFECTIVE INITIALLY, RATE INCREASED. PT. HEART RATE INCREASED TO 100 FOR A SHORT PERIOD OF TIME, PVCS AND BIGEMINY NOTED FOR 60 SECONDS. DOPAMINE TITRATED DOWN, BP NOT ADEQUATE WITH THIS DOSE, BUT HEART RATE AND RHYTHM CORRECTED SELF. DOPAMINE GTT STOPPED AND LEVOPHED INITITATED WITH BETTER EFFECT ON BLOOD PRESSURE. MAP CURRENTLY GREATER THAN 60. WILL CONTINUE TO MONITOR.
[2018-06-30 05:29] LABS: HCO3 24.3 mmol/L (22.0-26.0); PCO2 47.6 mmHg (35.0-45.0); PO2 102.9 mmHg (80.0-100.0); pH 7.325 (7.360-7.450); sO2 97.3 % (92.0-98.0)
[2018-06-30 05:53] LABS: CALCIUM 7.8 mg/dL (8.5-10.1); CREATININE 2.4 mg/dL (0.6-1.0); POTASSIUM 3.5 mmol/L (3.5-5.1)
--- NOTE | 2018-06-30 06:29 | NUR ---
PT. HEART RATE AND RHYTHM WITHIN NORMAL LIMITS. MAP STAYED ABOVE 60 WITH LITTLE TITRATION OF LEVOPHED. PLAN OF CARE IS TO CONTINUE TO MONITOR HEMODYNAMIC STABILITY AND MAINTAIN OXYGENATION ON VENTILATOR. WILL CONTINUE TO MONITOR
--- NOTE | 2018-06-30 10:13 | HC ---
[facility] [place] [address] CONSULTATION Name: ANGELIQUE BULLOCK Room #: 245-P ADM IN M.R.#: [id number] Admission: 06/27/18 ������������������ Attend Phys: Saba Pillai MD Discharge: ������������������ Date of : 48 Report #: [id number] THIS REPORT FOR: //name// CC: FAM unknown Saba Pillai DATE OF SERVICE: 06/28/2018 CHIEF COMPLAINT: Ulceration to the right lateral thigh. HISTORY OF PRESENT ILLNESS: This is a 68-year-old female patient who was admitted to the hospital for hypoxia and shortness of breath. She has been intubated and is on a ventilator at present. She can provide no information about herself. Admitting history and physical noted that this patient has been significantly noncompliant with medical care. She spends most of her day in bed or in a wheelchair. She was noted to have ulceration on her right lateral thigh. I have been asked to see her with regard to wound care. ALLERGIES: None. MEDICATIONS: Include Norvasc, acetaminophen, potassium, Lasix, docusate sodium. PAST MEDICAL HISTORY: Positive for previous hysterectomy, right total knee replacement, bilateral lower extremity edema. She has not ambulated for 3 years, hypertension, hyperlipidemia, GERD, diet-controlled diabetes and chronic kidney disease. SOCIAL HISTORY: Negative for alcohol or tobacco use. FAMILY HISTORY: Noncontributory. REVIEW OF SYSTEMS: Not obtainable as the patient is either sedated or obtunded and intubated on a respirator. PHYSICAL EXAMINATION: VITAL SIGNS: Include temperature 36.4, pulse 56, respiratory rate of 20-24, blood pressure 122/40. GENERAL: This is a chronically ill-appearing female patient who appears to have some spontaneous movement. HEENT: Head normocephalic. Throat demonstrates oral endotracheal tube in place. NECK: Supple. LUNGS: Diminished. HEART: Regular rhythm. ABDOMEN: Soft, obese, nontender. EXTREMITIES: Lower extremities show a stage 3 pressure ulceration to the right [facility] [address] [place] [address] CONSULTATION Name: ANGELIQUE BULLOCK Room #: 245-P [facility] IN .R.#: [id number] Admission: 06/27/18 ������������������ Attend Phys: Saba Pillai MD Discharge: ������������������ Date of : 48 Report #: [id number] lateral thigh. There is some loose skin present. Does not appear to be a deep injury. There is no exposure of deep structures. Heels are intact. LABORATORY DATA: Includes sodium 146, potassium 3.3, chloride 109, CO2 is 27, BUN 20, creatinine 1.9, glucose 61. White blood cell count 6.7 with a hemoglobin 10.8, hematocrit 33.7. Albumin is 3.0. CLINICAL IMPRESSION: 1. Stage 3 pressure ulceration to the right lateral thigh. 2. Acute on chronic kidney disease. 3. History of borderline diabetes. 4. Morbid obesity. 5. History of hypertension. 6. History of medical noncompliance. RECOMMENDATIONS: At this point in time, we will recommend silver alginate and bordered foam to the right lateral thigh. She needs low air loss mattress, q. 2 hour turning and repositioning, we recommend PRAFO boots to both lower extremities. She will need ongoing aggressive nutritional support to maximize wound healing. I appreciate being asked to see her in consultation. ��������������������������������������������� <ELECTRONICALLY SIGNED> ���������������������������������������� By: Silviano Cox MD ��������������������������������������������� 06/30/18 1013 0812 [id number] Silviano Cox MD /nt
--- NOTE | 2018-06-30 18:40 | NUR ---
PATIENT ON LIGHT SEDATION, DURING SEDATION VACATION ABLE TO TRACK AND DOESN'T FOLLOW COMMANDS. SINUS BRADYCARDIA ON STRIPPER AND OPAQUER APPRENTICE. ON VENTILATOR, 30% FIO2. OG TUBE TO LOW INTERMITTENT SUCTION. HANDLEY PATENT AND DRAINING. BLOOD SUGAR MONITORED. FAMILY UPDATED ON THE PLAN OF CARE. NO SIGNS OF ACUTE DISTRESS NOTED AT THIS TIME. WILL CONTINUE TO MONITOR.
[2018-07-01] VITALS (14 sets, daily range): BP systolic 87–154; BP diastolic 42–83
--- NOTE | 2018-07-01 00:10 | NUR ---
PT. TEMPERATURE 96.0 AT 2330, PATRICIA LANDINER TURNED ON AT 2335 ON HIGH. WILL CONTINUE TO MONITOR.
[2018-07-01 05:02] LABS: HEMATOCRIT 30.5 % (37.0-47.0); MCH 29.2 pg (26.0-34.0); MCHC 32.7 g/dL (28.0-37.0); MCV 89.3 fL (80.0-100.0); RBC 3.41 mil/uL (4.20-5.00); RDW 15.5 % (10.5-14.5); WBC 5.4 thou/uL (4.0-11.0)
--- NOTE | 2018-07-01 05:03 | NUR ---
NO SIGNIFICANT CHANGES. HEART RATE AND RHYTHM CONTINUE TO BE BRADYCARDIC. LEVOPHED GTT TITRATION CHARTED. PT. NEEDED USE OF PATRICIA HUGGER OVERNIGHT FOR LOW TEMPERATURES. PT. OFF PATRICIA HUGGER AT 0400. PLAN OD CARE IS TO MONITOR HEMODYNAMIC STABILITY AND MONITOR OXYGENATION WITH VENTILATOR. WILL CONTINUE TO MONITOR.
[2018-07-01 05:32] LABS: ALBUMIN 2.1 g/dL (3.4-5.0); CALCIUM 7.7 mg/dL (8.5-10.1); CREATININE 2.4 mg/dL (0.6-1.0); PHOSPHORUS 3.6 mg/dL (2.5-4.9); POTASSIUM 3.7 mmol/L (3.5-5.1)
--- NOTE | 2018-07-01 18:00 | NUR ---
PT IS AWAKE DOES NOT FOLLOW COMMANDS. FAMILY AT BEDSIDE TODAY. PT'S DAUGHTER HERE AND ENT/ DR. BAKER EXPLAINED TRACH PLACEMENT TO FAMILY. AND ANSWERED QUESTIONS AND CONCERNS OF JOSIE. LUNGS ARE CLEAR TO DIMINISHED. BRADYCARDIA ON THE MONITOR. BOWEL SOUNDS ACTIVE X4. HANDLEY TO DD WITH YELLOW URINE PRESENT. BATH DONE TODAY. CASE MANAGMENT CAN FOLLOW UP WITH PLAN OF CARE OF PT AND ANY ISSUES OR CONCERNS AT THIS TIME. PT'S WILL NEED OG TUBE REPLACED TUBE OUT AFTER RESPITORY TREATMENT. PT REAMINS IN RESTRAINTS. WILL CONTINUE ONGOING CARE AND TREATMENT
[2018-07-02] VITALS (25 sets, daily range): BP systolic 88–139; BP diastolic 40–73
[2018-07-02 05:21] LABS: HEMOGLOBIN 9.8 gm/dL (12.0-15.0); MCH 29.3 pg (26.0-34.0); MCHC 32.8 g/dL (28.0-37.0); MCV 89.5 fL (80.0-100.0); RBC 3.35 mil/uL (4.20-5.00); RDW 15.5 % (10.5-14.5); WBC 4.8 thou/uL (4.0-11.0)
[2018-07-02 05:29] LABS: CALCIUM 7.7 mg/dL (8.5-10.1); CREATININE 2.2 mg/dL (0.6-1.0); POTASSIUM 3.7 mmol/L (3.5-5.1)
--- NOTE | 2018-07-02 08:39 | NUR ---
SEE Relatient FOR ASSESSMENT. PT TRIES TO OPEN EYES WHEN LIGHTENED ON PROPOFOL. DOES NOT FOLLOW COMMANDS. MONITOR SB. BP MAP>65 ON LOW DOSE OF LEVOPHED. GOOD UO. TOLERATING TUBE FEEDINGS. BS LOW -TREATED WITH D50 EACH TIME EVEN WITH TUBE FEEDING INFUSING. NOTIFIED AVIATION OPERATIONS SPECIALIST. ORDERS FOR DEXTROSE IN MAINT IV FLUIDS. CONT PLAN OF CARE
--- NOTE | 2018-07-02 12:39 | NUR ---
WOUND FOLLOW UP: PT. WAS SEEN TODAY BY MYSELF AND COUNTER CLERK SHARRI. PT. WOUND TO HER RIGHT LATERAL THIGH IS CLINICALLY BETTER WITH TODAYS ASSESEMENT. RECOMMENDATIONS: CONTINUE WITH CURRENT PLAN OF CARE. PT. AND STAFF NURSE WERE INSTRUCTED ON PLAN OF CARE.
[2018-07-03] VITALS (67 sets, daily range): BP systolic 77–164; BP diastolic 34–100
[2018-07-03 06:13] LABS: CALCIUM 7.8 mg/dL (8.5-10.1); CREATININE 2.2 mg/dL (0.6-1.0); POTASSIUM 3.8 mmol/L (3.5-5.1)
--- NOTE | 2018-07-03 07:51 | NUR ---
CONTACT DAUGHTER WHO IS DPOA. PT INFORMS ME THAT SHE WANTS TO WAIT TO SIGN A CONSENT UNTIL SHE COMES TO HOSPITAL AND SPEAKS WITH PHYSICIAN.
--- NOTE | 2018-07-03 07:56 | NUR ---
PT LIGHTLY SEDATED ON PROPOFOL, VENT SETTINGS REMAIN THE SAME, BRADYCARDIA AND AT TIMES HYPOTENSIVE, URINE OUTPUT IS LOW CREATININE 2.2 THIS AM. TUBE FEEDING OFF AT MIDNIGHT, PT NPO AT FOR TRACH PLACEMENT TODAY. X2 BOWEL MOVEMENTS AT NIGHT. BLOOD SUGAR 64 THIS AM, D50 GIVEN. GLUCOSE RECHECK 79 AT 0713. PT WITH LOW TEMPS THIS MORNING, PATITO GIMENEZ APPLIED 0630, REPORT GIVEN TO AURELIANO GONZALEZ.
--- NOTE | 2018-07-03 08:43 | NUR ---
SURGERY CALL DPOA(DAUGHTER). DPOA REFUSED CONSENT FOR TRACH OVER THE PHONE. PROCEDURE WILL NOT HAPPEN TODAY SO WILL RESTART TUBE FEEDING.
--- NOTE | 2018-07-03 11:58 | NUR ---
DPOA TOOK HOME DEBIT AND MEDICAID/INSURANCE CARD.
--- NOTE | 2018-07-03 12:09 | NUR ---
PT'S BP DROPPED. CONTACT DR. BRIGHT AND CHECK CVP AND START LEVOPHED GTT.
--- NOTE | 2018-07-03 14:24 | NUR ---
PT'S DAUGHTER SIGNED CONSENT FOR TRACH.
--- NOTE | 2018-07-03 14:32 | NUR ---
WOUND CARE FOLLOW UP; RIGHT LATERAL THIGH IS A RESOLVING STAGE 3 WITH NO DRAINAGE. CURRENTLY USING AQUACEL AG AND FOAM DRESSINGS. RECOMMENDATIONS; D/C AQUACEL AG AND USE ONLY FOAM DRESSINGS DISCUSSED WITH RN
--- NOTE | 2018-07-03 17:56 | NUR ---
PLACE PT BACK ON LEVOPHED GTT THIS SHIFT TO KEEP MAP ABOVE 65. PT NOT ON ANY SEDATION AT THIS TIME AND IN SYNC WITH VENT. CONTINUE TO TURN Q2 HOURS. WILL INSTRUCT NIGHT RN TO STOP TUBE FEED AT MIDNIGHT. PT TAMIKA HAVE TRACH BETWEEN 730 AND 830 AM TOMORROW. FAMILY HAS BEEN NOTIFIED.
--- NOTE | 2018-07-03 18:29 | NUR ---
SPOKE WITH DR. ADAME WITH ANESTHESIA TO COM AND TALK WITH THE FAMILY ABOUT ANESTHESIA FOR PROCEDURE. FAMILY IS IN THE ICU WAITING ROOM AT THIS TIME HOWEVER NO ANESTHESIA PYSICIAN CAN COME TO TALK TO FAMILY AT THIS TIME BECAUSE IN SURGERY. DR. GOMEZ WILL COME TO TALK TO FAMILY PRIOR TO SURGERY IN THE AM.
--- NOTE | 2018-07-03 19:08 | NUR ---
BEDSIDE REPORT GIVEN TO NIGHT RN.
[2018-07-04] VITALS (60 sets, daily range): BP systolic 90–182; BP diastolic 40–113
--- NOTE | 2018-07-04 00:31 | NUR ---
TUBE FEEDINGS TURNED OFF AT MIDNIGHT, PT. NPO FOR PROCEDURE IN AM.
--- NOTE | 2018-07-04 04:43 | NUR ---
FULL CHLORHEXIDINE BATH GIVEN FOR PROCDURE THIS AM.
--- NOTE | 2018-07-04 04:49 | NUR ---
FECAL MANAGEMENT SYSTEM DEVICE IN PLACE PER SUPERVISOR RIVETING ORDER AT 0230. PT. TOLERATED PROCEDURE.
--- NOTE | 2018-07-04 12:03 | NUR ---
WOUND CARE FOLLOW UP; ROUNDING TODAY WITH SHARRI TANK INSULATOR RUBBER. ASSESSMENT OF THE RIGHT THIGH WOUND IS STABLE AT THIS TIME. REOMMENDATIONS; CONTINUE CURRENT TREATMENT PLAN RN PRESENT
--- NOTE | 2018-07-04 12:29 | NUR ---
RADHA PLACED THIS AM. SPOKE WITH DTR FERNANDO BY PHONE JUST NOW. REVIEWED GOALS OF CARE AND TRANSITION OF CARE TO LTACH. FERNANDO CONFIRMS PT IS A FULL CODE AND WANTS TO CONTINUE TO TREAT AGGRESSIVELY. DR. HENSON UPDATED. DR. JOHNSON CONSULT CANCELLED. REVIEWED LTACH OPTIONS WITH FERNANDO AND ENCOURAGED HER TO TOUR FACILITIES. FERNANDO THINKS [facility] IS EASIEST FOR HER TO GET TO SHE DEPENDS ON RIDES AND TAKES BUS. REFERRAL TO [facility] AT [facility]. GI CONSULTED TODAY FOR PEG PLACEMENT. FERNANDO TO COME TO HOSPITAL THIS AFTERNOON OR TOMORROW AND WILL MEET WITH HER TO DISCUSS LTACH FURTHER. PT WAS LIVING AT HOME WITH DTR., BED BOUND, UNABLE TO STAND. HAS W/C AT HOME. AT HOME PHYSICIAN DR. BAHMAN REYES HAD SEEN PT ONCE IN HOME AND [facility]. [facility] WILL NOT ACCEPT PT BACK TO SERVICE. DTR INDICATES DESIRE FOR PT TO RETURN HOME ULTIMATELY, UNDERSTANDS PT WILL NEED LTACH STAY ATLEAST.
--- NOTE | 2018-07-04 16:51 | NUR ---
TRACH PLACED IN OR THIS AM, PT TOLERATED WELL. PT WILL SQUEEZE HANDS SOFTLY AND OPEN EYES TO COMMANDS AND THAT IS ALL, NO Y/N QUESTIONS. GI CONSULTED FOR PEG PLACEMENT TOMORROW. DAUGHTER AWARE OF SURGERY AND STATES SHE WILL BE HERE IN AM AND WANTS TO READ AND SIGN THE PEG TUBE PLACEMENT CONSENT HERSELF NOT PHONE CONSENT. NO NG PLACED, PT STARTED ON MAINTENANCE FLUIDS WITH DEXTROSE FOR HYPOGLYCEMIA. CDIFF CAME BACK NEGATIVE, PATIENT TAKEN OUT OF ISOLATION.
[2018-07-05] VITALS (30 sets, daily range): BP systolic 97–153; BP diastolic 43–112
--- NOTE | 2018-07-05 02:37 | NUR ---
CHLORHEXIDINE BATH GIVEN FOR PROCEDURE THIS AM.
[2018-07-05 05:12] LABS: HEMATOCRIT 28.2 % (37.0-47.0); HEMOGLOBIN 9.2 gm/dL (12.0-15.0); MCHC 32.4 g/dL (28.0-37.0); MCV 89.5 fL (80.0-100.0); RBC 3.15 mil/uL (4.20-5.00); RDW 15.1 % (10.5-14.5); WBC 4.3 thou/uL (4.0-11.0)
--- NOTE | 2018-07-05 05:17 | NUR ---
MAINTAINED NPO AFTER MIDNIGHT FOR PROCEDURE THIS AM. PT. HYPOGLYCEMIC THROUGHOUT SHIFT. PT. REMAINS HEMODYNAMICALLY STABLE AND HAS MAINTAINED OXYGENATION WITH TRACH PLACED 07/04. WILL CONTINUE TO MONITOR.
[2018-07-05 05:18] LABS: CALCIUM 7.6 mg/dL (8.5-10.1); CREATININE 1.9 mg/dL (0.6-1.0); MAGNESIUM 1.7 mg/dL (1.8-2.4); POTASSIUM 3.5 mmol/L (3.5-5.1)
--- NOTE | 2018-07-05 07:34 | O ---
[facility] [place] [address] [address] OPERATIVE REPORT Name: ANGELIQUE BULLOCK Room #: 241-P ADM IN M.R.#: [id number] Admission: 06/27/18 ������������������ Attend Phys: Saba Pillai MD Discharge: ������������������ Date of : 48 Report #: [id number] THIS REPORT FOR: //name// CC: FAM unknown Saba Pillai DATE OF SERVICE: 07/04/2018 PROCEDURE: Trache[place] [address]. Bronch via trach. CPT 88278 PREOPERATIVE DIAGNOSIS: Respiratory failure. POSTOPERATIVE DIAGNOSIS: Respiratory failure. SURGEON: Roshan Doss MD ESTIMATED BLOOD LOSS: 10 mL. COMPLICATIONS: None. SPECIMENS: None. FINDINGS: The patient was found to have normal tracheal anatomy. INDICATIONS FOR PROCEDURE: The patient is a 68-year-old female, who presented with dyspnea and respiratory failure requiring intubation. She was unable to wean from the ventilator. It was decided that she would benefit from placement of tracheostomy. The risks, benefits and alternatives were discussed with her family and they agreed to proceed. DESCRIPTION OF PROCEDURE: After informed consent was obtained, the patient was taken to the operating room and placed in supine position. She underwent general anesthesia. She was prepped and draped in the usual fashion. A timeout was performed and the correct patient and procedure were identified. Approximately 8 mL of 1% lidocaine with 1:100,000 epinephrine were injected in the skin and subcutaneous tissue. After time was given for vasoconstriction to take effect, a vertical 2 cm incision was made through the skin using a 15 blade scalpel. Subcutaneous fat was then removed using Bovie cautery. The cervical fascia was then divided in the midline and the strap muscles were identified. The midline raphe was identified and this was divided with the Bovie cautery. The strap muscles were then retracted laterally. The cricoid cartilage was then identified and the thyroid isthmus was elevated off the anterior tracheal wall. This was then divided also using the Bovie cautery. An inferiorly based Darrell flap was then marked between the second and third tracheal rings using the Bovie cautery. Incision was made between the second and third tracheal rings using an 11 blade scalpel and vertical limbs were then completed using heavy curved [facility] [address] [place] [address] OPERATIVE REPORT Name: ANGELIQUE BULLOCK Room #: 241-P [facility] IN M.R.#: [id number] Admission: 06/27/18 ������������������ Attend Phys: Saba Pillai MD Discharge: ������������������ Date of : 48 Report #: [id number] scissors. A 2-0 silk stitch was then passed through the Darrell flap and out through the skin in order to retract this inferiorly. The endotracheal tube was then withdrawn superiorly by the anesthesia service and a size 8 DCT Shiley tracheostomy tube was then inserted into the airway. Cuff was inflated and connected to the anesthesia circuit. End-tidal CO2s were confirmed. The wound was then packed with Surgicel and the tracheostomy tube was secured to the skin with 2-0 nylon sutures, one in each corner of the tracheostomy tube. A Darrell stitch was then secured to the skin with a Tegaderm. Tracheostomy ties were then placed. All instrumentation was withdrawn from the patient and then the patient was turned back over to the anesthesia service. She was successfully transported back to the ICU in stable condition. All counts were reported as correct and there were no complications during the procedure. ��������������������������������������������� <ELECTRONICALLY SIGNED> ���������������������������������������� By: Roshan Doss MD ��������������������������������������������� 07/05/18 0734 [id number] [id number] Roshan Doss MD /nt
--- NOTE | 2018-07-05 16:57 | NUR ---
PEG PLACED TODAY. MET WITH PT'S DTR CHRISTA AND PROVIDED HER WITH LIST OF LTACS OPTIONS AND ENCOURAGED HER TO TOUR IN NEXT COUPLE DAYS AND PROVIDED CM CONTACT # TO CALL WITH HER DECISION. REFERRAL TO [facility] AT CHRISTA'S REQUEST.
--- NOTE | 2018-07-05 18:44 | NUR ---
ASSUMED CARE OF PT AT 0700, PT IS DROWSY BUT OPENS EYES AT TIMES TO VERBAL STIMULATION. VSS. BLOOD SUGARS WITHIN NORMAL LIMITS. PEG TUBE PLACEMENT DONE TODAY.
[2018-07-06] VITALS (25 sets, daily range): BP systolic 119–180; BP diastolic 36–91
--- NOTE | 2018-07-06 05:49 | NUR ---
DROSWY DURING THE NIGHT. DOENS'T FOLLOW COMMANDS, BUT RESPS TO TOUCH. NO APPARENT PAIN. TRACH ON VENT, TOLERATING VENT SETTINGS. VSS. AFEBRILE. PEG TUBE IN PLACE, ORIGINAL ABD DRESSING IN PLACE. FREQUENT TURNS. REFUSES ORAL CARE AT TIMES. SLOWLY PROGRESSING TOWARDS GOALS. WILL CONTINUE TO MONITOR.
--- NOTE | 2018-07-06 09:04 | NUR ---
Once able to restart enteral nutrition, recommend vital high protein goal of 55ml/hr.
[2018-07-06 09:19] LABS: HCO3 27.4 mmol/L (22.0-26.0); PCO2 52.3 mmHg (35.0-45.0); PO2 79.8 mmHg (80.0-100.0); pH 7.337 (7.360-7.450); sO2 94.9 % (92.0-98.0)
--- NOTE | 2018-07-06 12:47 | NUR ---
WOUND CARE FOLLOW UP; THE WOUND IS HEALED AND WOUND CARE WILL BE SIGNING OFF. RECCONSULT IF NEEDED. DISCUSSED WITH RN
--- NOTE | 2018-07-06 15:28 | NUR ---
MET WITH DTR/DPCHARLEEN GOODWIN TODAY AND CHOICE FORM COMPLETED WITH [facility] CHOICE FOR LTACH AT DC. TIMELINE FOR DC GIVEN TO DTR IS NEXT WEEK AND SHE IS AGREEABLE. UPDATGE TO [facility] ADMISSIONS WHO WILL SEE PT MONDAY.
--- NOTE | 2018-07-06 18:34 | NUR ---
CPAP TRIAL TODAY, GENERALLY WELL TOLERATED. SEE ABGS. TUBE FEEDING STARTED THROUGH PEG, WELL TOLERATED. SEE ASSESSMENT FOR DETAILS. SLIGHTLY PROGRESSING.
[2018-07-07] VITALS (24 sets, daily range): BP systolic 108–150; BP diastolic 40–78
--- NOTE | 2018-07-07 06:19 | NUR ---
AOX1, FOLLOW COMMANDS. MEDICATED FOR PAIN. AFEBRILE. VSS. TOLERATING VENT SETTINGS. FREQUENT TURNS AND ORAL CARE. TF ONGOING AT 45 CC/HR. NO COMPLAINS PRESENTLY. WILL CONTINUE TO MONITOR.
--- NOTE | 2018-07-07 18:12 | NUR ---
RESTING QUIETLY, AWAKENS EASILY, SPONTANEOUS MOVEMENT OF ALL EXTREMITIES, SQUEEZES HANDS TO COMMAND, NODS YES/NO, SR WITH FIRST DEGREE AV BLOCK, EDEMA SLIGHTLY DECREASING IN BELINDA LEGS, CPAP TRIAL LASTED FOR ABOUT AN HOUR WITH RR RATE INTO 30'S WITH ACTIVITY THEN REPLACED ON A/C. TUBE FEEDING INFUSING AT 50CC/HR UNTIL RESIDUAL OF 145CC. TF OFF SINCE 1729. D10 REMAINS AT CONSTANT RATE OF 40CC/HR, HANDLEY WITH ADEQUATE URINE OUTPUT. NO PROGRESS THIS SHIFT.
[2018-07-08] VITALS (25 sets, daily range): BP systolic 111–159; BP diastolic 51–103
[2018-07-08 05:32] LABS: CALCIUM 7.4 mg/dL (8.5-10.1); CREATININE 1.1 mg/dL (0.6-1.0); HEMATOCRIT 27.2 % (37.0-47.0); MCH 29.3 pg (26.0-34.0); MCV 88.6 fL (80.0-100.0); POTASSIUM 3.8 mmol/L (3.5-5.1); RBC 3.07 mil/uL (4.20-5.00); RDW 14.6 % (10.5-14.5); WBC 5.8 thou/uL (4.0-11.0)
--- NOTE | 2018-07-08 05:32 | NUR ---
APPROPIATE DURING THE NIGHT. FOLLOW COMMANDS AND ABLE TO COMMUNICATE BY WRITING OR MOUTHING WORDS. ALERT TO SELF, ALERT. HELPS WITH TURNS AND ORAL CARE. RESTRAINST DC. ON VENT, TOLERATING VENT SETTINGS. NO APPARENT SOA AT REST. VSS. AFEBRILE. TF ONGOING CURRENTLY AT 55CC/HR, GOAL. RESIDUALS NOTED. FREQUENT TURNS AND ORAL CARE PERFORMED. FAMILY IN DURING THE NIGHT TO VISIT WITH PATIENT. NO COMPLAINS PRESENTLY. PT SLOWLY PROGRESSING TOWARDS GOALS. WILL CONITNUE TO MONITOR.
--- NOTE | 2018-07-08 17:31 | NUR ---
PT CARE ASSUMED APPROX 0700. PT MORE ALERT THIS SHIFT. ORIENTED X4. DENIES PAIN AND SOA. VSS. PT DID NOT TOLERATE CPAP TRIAL THIS SHIFT. IVF REMAINS TO POC. PT TOLERATING TUBE FEEDING. INCONT OF BM ONCE THIS SHIFT. FOLET PATENT. RIJ PATENT. PT'S DAUGHTER CALLED WITH [facility] AND HAD SOME CONCERNS. PT'S DAUGHTER RECEIVED CLINICAL UPDATE AND DENIED QUESTIONS OR CONCERNS THEREAFTER. PT'S GRANDDAUGHTER WAS AT BEDSIDE THIS SHIFT. SHE ALSO RECEIVED CLINICAL UPDATE. RESTRAINTS REMAIN ABSENT FROM POC. PT HAS NOT POSED A RISK FOR DISLOGEMENT OR DECANNULATION THIS SHIFT. SLEEPING MOST OF SHIFT BUT AROUSES EASILY. TURNING PT Q2 HRS AND PRN. NO CLINICAL DISTRESS NOTED.
[2018-07-09] VITALS (24 sets, daily range): BP systolic 118–202; BP diastolic 52–103
--- NOTE | 2018-07-09 09:13 | NUR ---
Recommend discontinue IVF and adjust tube feeding goal rate to 65ml/hr
--- NOTE | 2018-07-09 11:33 | NUR ---
VASCULAR ACCESS NURSE ROUNDING. WOULD SUGGEST MIDLINE ACCESS AND DISCONTINUE CENTRAL LINE SOON , IF APPROPRIATE, TO DECREASE INFECTION RISK FROM NEW TRACH DRAINAGE.
--- NOTE | 2018-07-09 20:00 | NUR ---
REMAINS TRACHED AND VENTED. ALERT FOLLOWS COMMANDS. LUNG COARSE BIlat. remains in afib flexiseal with a small amt brown liq stool. excellent urianry output. REAMIS A CCU OVERFLKOW WILL TX TO [facility] HOME IN AM WILL CONT TO MONITOR.
[2018-07-10] VITALS (34 sets, daily range): BP systolic 137–184; BP diastolic 54–137
--- NOTE | 2018-07-10 01:45 | NUR ---
TX TO ICU OVERFLOW BED ROOM 245.
--- NOTE | 2018-07-10 02:42 | NUR ---
REPORT RECEIVED FROM [facility] FOR PT. ALLOWED FOR QUESTIONS. PT SETTLED IN ROOM 245 NOW.
--- NOTE | 2018-07-10 04:26 | NUR ---
PT TRANSFERED BACK TO [facility] INTO POD 1 ROOM 241 WHERE SHE CAME FROM. PT WAS NOT THE PT TO BE DOWNGRADED AND PLACED INTO POD 2.
[2018-07-10 05:52] LABS: HEMATOCRIT 28.6 % (37.0-47.0); HEMOGLOBIN 9.2 gm/dL (12.0-15.0); MCH 28.4 pg (26.0-34.0); MCHC 32.3 g/dL (28.0-37.0); MCV 88.1 fL (80.0-100.0); RBC 3.25 mil/uL (4.20-5.00); RDW 14.7 % (10.5-14.5); WBC 5.4 thou/uL (4.0-11.0)
[2018-07-10 06:00] LABS: CALCIUM 8.2 mg/dL (8.5-10.1); MAGNESIUM 1.9 mg/dL (1.8-2.4); POTASSIUM 3.9 mmol/L (3.5-5.1)
--- NOTE | 2018-07-10 06:00 | NUR ---
VSS PT AWAKE AND ALERT. 1500 CC UO AND 100 CC YELLOW BROWN LIQUID STOOL FROM FLEXISEAL. REMAINS IN AFIB. BATHED. PT IS S/C TO GO TO [facility] TODAY. WILL CONT TO MONITOR
[2018-07-10] MEDS ORDERED: FAMOTIDINE20 MG PER TUBE (12:15)
[2018-07-10] MEDS ORDERED: CEFTRIAXON1 GM/50 ML IV (12:15)
--- NOTE | 2018-07-10 12:40 | NUR ---
PLANS FOR TRANSITION OF CARE TO LTACH AT [facility] TODAY. BRANDON AT [facility] CONFIRMS PT ACCEPTED AND REQUESTS [facility] [employer] TIME OF 1400. CHART COPIED. DC ORDER AND SUMMARY FAXED TO [facility]. SPOKE WITH PT'S DPOA/DTR SARAH WHO IS AGREEABLE TO DC PLAN. RN GIVEN # FOR REPORT AND UPDATED.
--- NOTE | 2018-07-10 13:28 | NUR ---
PT DISCHARGING TODAY TO [facility] FAXED DC ORDERS/SUMMARY TO FACILITY LEFT MSG WITH [facility] THAT DC ORDERS FAXED AND TRANSPORT ARRANGED VIA AMBULANCE FOR 1400 TODAY. FAMILY NOTIFIED AND UNIT NOTIFIED TIME OF TRANSPORT. CHART COPY PER US. RN TO CALL REPORT TO [phone].
== END 2018-07-10 14:00 | DRG 4 ==
LOC: ER 11:52 → EROBS 14:02 → ICU 14:02 → 4W 16:58 → ICU 20:09
PROVIDERS: Emergency Medicine; Hospitalist; Internal Medicine; Internal Medicine Pulmonary Disease; Nurse Practitioner Acute Care; ADMIT Internal Medicine
PROC: 0B110F4 Bypass Trachea to Cutaneous with Tracheostomy Device, Open Approach (ICD-10-PCS; 2018-06-27)
PROC: 5A1955Z Respiratory Ventilation, Greater than 96 Consecutive Hours (ICD-10-PCS; principal; 2018-06-28)
PROC: 5A09357 Assistance with Respiratory Ventilation, Less than 24 Consecutive Hours, Continuous Positive Airway Pressure (ICD-10-PCS; 2018-06-28)
PROC: 5A1935Z Respiratory Ventilation, Less than 24 Consecutive Hours (ICD-10-PCS; 2018-06-28)
PROC: 02HV33Z Insertion of Infusion Device into Superior Vena Cava, Percutaneous Approach (ICD-10-PCS; 2018-06-29)
PROC: 0BH17EZ Insertion of Endotracheal Airway into Trachea, Via Natural or Artificial Opening (ICD-10-PCS; 2018-07-05)
PROC: 0DJ08ZZ Inspection of Upper Intestinal Tract, Via Natural or Artificial Opening Endoscopic (ICD-10-PCS; 2018-07-05)
PROC: 0DH63UZ Insertion of Feeding Device into Stomach, Percutaneous Approach (ICD-10-PCS; 2018-07-05)
DX: A41.9 Sepsis, unspecified organism (principal); J96.21 Acute and chronic respiratory failure with hypoxia; L89.893 Pressure ulcer of other site, stage 3; J96.22 Acute and chronic respiratory failure with hypercapnia; J69.0 Pneumonitis due to inhalation of food and vomit; I13.0 Hypertensive heart and chronic kidney disease with heart failure and stage 1 through stage 4 chronic kidney disease, or unspecified chronic kidney disease; N17.9 Acute kidney failure, unspecified; E46 Unspecified protein-calorie malnutrition; E66.2 Morbid (severe) obesity with alveolar hypoventilation; I50.9 Heart failure, unspecified; E78.5 Hyperlipidemia, unspecified; K21.9 Gastro-esophageal reflux disease without esophagitis; E11.22 Type 2 diabetes mellitus with diabetic chronic kidney disease; N18.3 Chronic kidney disease, stage 3 (moderate); I95.9 Hypotension, unspecified; Z96.651 Presence of right artificial knee joint; I89.0 Lymphedema, not elsewhere classified; R13.10 Dysphagia, unspecified; D64.9 Anemia, unspecified; Z96.653 Presence of artificial knee joint, bilateral; I27.20 Pulmonary hypertension, unspecified; I27.81 Cor pulmonale (chronic); Z74.01 Bed confinement status; Z99.3 Dependence on wheelchair; Z90.710 Acquired absence of both cervix and uterus; Z68.38 Body mass index [BMI] 38.0-38.9, adult; Z99.81 Dependence on supplemental oxygen; Z91.14 Patient's other noncompliance with medication regimen; Z79.899 Other long term (current) drug therapy; Z87.440 Personal history of urinary (tract) infections
CPT/HCPCS: 10078; 50101; 50386; 50398; 50517; 56526; 57006; 62110; 62900

== ENCOUNTER 2018-09-10 14:35 | Inpatient (IN) | payer OTHER ==
[~2018-09-10] VITALS: Ht 152.4 cm; Wt 102.5 kg
[~2018-09-10 14:35] MED LIST changes: +CEFTRIAXON1 GM/50 ML IV; +FAMOTIDINE20 MG PER TUBE
[2018-09-10 14:36] VITALS: BP 85/46
[2018-09-10 16:26] LABS: ABSOLUTE NEUTROPHILS 11.5 thou/uL (1.4-8.2); BASOPHILS 0.6 % (0.0-2.0); HEMATOCRIT 30.6 % (37.0-47.0); HEMOGLOBIN 10.1 gm/dL (12.0-15.0); MCH 28.2 pg (26.0-34.0); MCHC 32.9 g/dL (28.0-37.0); MCV 85.6 fL (80.0-100.0); PLATELET COUNT 268 thou/uL (150-400); POLYS 83.4 % (36.0-66.0); RBC 3.57 mil/uL (4.20-5.00); RDW 15.7 % (10.5-14.5); WBC 13.8 thou/uL (4.0-11.0)
[2018-09-10 16:40] LABS: ANION GAP 4 mmol/L (7-16); BUN 32 mg/dL (7-18); CALCIUM 9.2 mg/dL (8.5-10.1); CHLORIDE 93 mmol/L (98-107); CO2 37 mmol/L (21-32); CREATININE 3.6 mg/dL (0.6-1.0); GLUCOSE 107 mg/dL (74-106); POTASSIUM 3.3 mmol/L (3.5-5.1); SODIUM 134 mmol/L (136-145)
--- NOTE | 2018-09-10 16:54 | NUR ---
VASCULAR ACCESS TEAM CONSULTED FOR PICC PLACEMENT. PT'S LABS,MEDS,HISTORY,ORDER AND CONSENT VERIFIED. DISCUSSED BENEFITS AND RISK OF PICC WITH PT, VERBALIZED UNDERSTANDING. IRAJ BASILIC WAS WIDELY PATENT WITH USG. 5FR TL POWER PICC TRIMMED TO 45CM INSERTED TO 2CM EXTERNAL PER HOSPITAL POLICY. STAT CXR CONFIRMED PLACEMENT AT [facility]. PICC RELEASED FOR IMMEDIATE USE PER PROTOCOL TO [facility].
--- NOTE | 2018-09-10 16:59 | NUR ---
ALL LABS DRAWN AFTER LINE PLACEMENT, UNABLE TO OBTAIN PRIOR TO PICC INSERTION.
[2018-09-10 17:36] LABS: TROPONIN-I <0.06 ng/mL (<0.06)
[2018-09-10 18:04] VITALS: BP 85/46
[2018-09-10 19:50] VITALS: BP 108/49
[2018-09-10] MEDS ORDERED: TRAMADOL 50 MG50 MG PO (19:59)
[2018-09-10] MEDS ORDERED: LASIX 20 MG TAB20 MG PO (20:00)
[2018-09-10] MEDS ORDERED: KLOR-CON 1010 MEQ PO (20:04)
[2018-09-10] MEDS ORDERED: APAP650 PO (20:06)
[2018-09-10 22:36] VITALS: BP 140/70
--- NOTE | 2018-09-11 02:10 | NUR ---
PAITENT IS ALERT AND ORIENTED. PATIENT IS BEDREST Q2TURN. PATIENT IS ON 2LNC (ROOM AIR IS BASELINE). PATINET IS NSR ON TELE. PATINET IS ACHS ACCUCHECKS. PATIENTS PAIN IS TREATED WITH PAIN MEDICAION. PATIENT HAS 4(+) EDEMA ON LOWER EXTREMITIES. PATIENTS BLOOD PRESSURE HAS BEEN STABLE. PATIENT IS RESTING COMFORTABLY IN BED. WCM. PATIENT IS PROGRESSING TO GOALS.
[2018-09-11 04:12] VITALS: BP 143/68
[2018-09-11 06:45] LABS: HEMATOCRIT 31.6 % (37.0-47.0); HEMOGLOBIN 9.9 gm/dL (12.0-15.0); MCH 27.2 pg (26.0-34.0); MCHC 31.5 g/dL (28.0-37.0); MCV 86.4 fL (80.0-100.0); RBC 3.65 mil/uL (4.20-5.00); RDW 15.5 % (10.5-14.5); WBC 15.9 thou/uL (4.0-11.0)
[2018-09-11 06:58] LABS: ALBUMIN 2.6 g/dL (3.4-5.0); CALCIUM 8.4 mg/dL (8.5-10.1); CREATININE 3.3 mg/dL (0.6-1.0); PHOSPHORUS 4.5 mg/dL (2.5-4.9); POTASSIUM 3.4 mmol/L (3.5-5.1)
[2018-09-11 07:44] VITALS: BP 112/40
--- NOTE | 2018-09-11 10:04 | NUR ---
Nutrition: pt admit with sepsis, UTI source. Consulted for poor DM control. Pt currently on regular diet. Hx DM noted but pt denies. States BG not taken at her facility as they are always under control. BG 63-67 here so far. No A1C. BMI 44, extreme class 3 obesity. Appetite is typically good. Stable weights. Pressure wound risk for sacrum and bilateral LE wounds related to PVD. Prior thigh wound healed in June. Wound care consult. Sacral wound friction related per chart. Bedridden x 3 years. Noted pt has no natural teeth or dentures and requires mechanical soft diet. Refuses supplements or diet review at this time. Consider low risk at present.
--- NOTE | 2018-09-11 10:26 | NUR ---
REC consider add heart healthy diet restrictions to diet order. Significant edema present and BMI 44. BG controlled.
[2018-09-11 11:28] VITALS: BP 87/38
--- NOTE | 2018-09-11 15:10 | NUR ---
INITIAL ASSESSMENT: Received consult for home health services. ANDREEA reviewed chart and spoke with nursing and attending physician. Pt was admitted from home due to sepsis. Pt s on IV abx: zosyn. ANDREEA met with pt at bedside. Introduced role of ANDREEA. Pt is alert/orientated. Pt states that she lives at home with her dtrGissel. Prior to admission, pt required assistance with ADLs. Pt states she has a cane, walker, wc and home O2. Pt does not know name of O2 provider. Pt was at [facility] in June of 2018 and then discharged to [facility]. Pt states she had HH arranged through [facility], but they have not started HH services yet. Pt does not have a PCP. ANDREEA left voice message for pt's dtrGissel ([phone]) to provide update and discuss discharge plan. ANDREEA contacted [facility] and spoke with Nancy in intake. Pt was sent to [facility] prior to starting HH services. Pt was to be seen by [facility] at home. ANDREEA left voice message for [facility] to request name of following physician. ANDREEA is following to assist as needed with discharge planning.
[2018-09-11 16:30] VITALS: BP 85/42
--- NOTE | 2018-09-11 19:37 | NUR ---
RESTED IN ROOM THROUGH THE DAY. TURNED Q2. KEPT CLEAN AND DRY. SHE DID COMPLAIN OF PAIN TO RIGHT KNEE AND PRN PAIN MEDS ADMINISTERED. WILL CONT WITH PLAN OF CARE.
[2018-09-11 20:42] VITALS: BP 95/49
[2018-09-12 01:46] VITALS: BP 121/52
[2018-09-12 04:48] VITALS: BP 132/57
[2018-09-12 05:58] LABS: HEMATOCRIT 24.6 % (37.0-47.0); HEMOGLOBIN 8.1 gm/dL (12.0-15.0); MCH 28.8 pg (26.0-34.0); MCHC 33.1 g/dL (28.0-37.0); RBC 2.82 mil/uL (4.20-5.00); RDW 16.2 % (10.5-14.5); WBC 8.7 thou/uL (4.0-11.0)
[2018-09-12 06:16] LABS: ALBUMIN 2.3 g/dL (3.4-5.0); CALCIUM 7.4 mg/dL (8.5-10.1); CREATININE 3.4 mg/dL (0.6-1.0); PHOSPHORUS 4.6 mg/dL (2.5-4.9); POTASSIUM 3.2 mmol/L (3.5-5.1)
--- NOTE | 2018-09-12 07:38 | EKG ---
[place] [address] [facility] [place] [address] ELECTROCARDIOGRAM REPORT Name: ANGELIQUE BULLOCK Room #: 359-P ADM IN M.R.#: [id number] ������������������ Admission: 09/10/18 ������������������ Attend Phys: Cheryl Bullock Discharge: ������������������ Date of : 48 Report #: [id number] ����������������������������������������������������������������� [id number] THIS REPORT FOR: //name// [facility] ED Test Date: 2018-09-10 Test Time: 14:55:26 Pat Name: ANGELIQUE BULLOCK Department: Room: 359 Gender: F [employer]ating [employer]: YEISON : 1950 Requested By: Abram Shah Order Number: [id number] MD: Romel Michaud Measurements Intervals [place] Rate: 85 P: 64 FL: 202 QRS: 49 QRSD: 104 T: 182 QT: 447 QTc: 532 Interpretive Statements Sinus rhythm Abnormal T, consider ischemia, lateral leads Prolonged QT interval Compared to ECG 06/27/2018 21:35:22 Sinus bradycardia no longer present T-wave abnormality still present Electronically Signed On 09-12-2018 7:38:09 CDT by Romel Michaud [email or web address] ��������������������������������������������� <ELECTRONICALLY SIGNED> ���������������������������������������� By: Romel Michaud MD, [facility] ��������������������������������������������� 09/12/18 0738 1455 1455 Romel Michaud MD, [facility] /EPI
--- NOTE | 2018-09-12 07:57 | NUR ---
PT MAKING SLOW PROGRESS TOWARDS GOALS. REPORTS PAIN IN RIGHT LEG/KNEE. RIGHT KNEE IS VERY LARGE. PT STATES IT IS SIGNIFICANTLY DISLOCATED. X1 DOSE OF ULTRAM OVERNIGHT. REPORTS DECREASED PAIN FROM SIX TO FIVE WITH SINGLE ULTRAM.
--- NOTE | 2018-09-12 08:00 | NUR ---
ASSUMED CARE AFTER RECEIVING REPORT. VS NOTED AND DRINKING APPLE JUICE. ASSESSMENT COMPLETED. REASSURANCE GIVEN.
[2018-09-12 08:02] VITALS: BP 109/48
[2018-09-12] MEDS ORDERED: AUGMENTIN 875-1 EACH PO ×2 (10:07)
[2018-09-12 10:32] VITALS: BP 109/48
--- NOTE | 2018-09-12 10:49 | NUR ---
DISCHARGE ORDERS RECEIVED. PATIENT DISCHARGING TO HOME WITH [facility]. DISCHARGE ORDERS/HOME HEALTH ORDERS FAXED TO [facility]. CALL RECEIVED FROM GLENN, WILL FOLLOW UP AND NOTIFY YUSRA IN INTAKE WHOM IS IN CHARGE OF PATIENTS HH NEEDS. UNIT CM/SW AWARE.
--- NOTE | 2018-09-12 12:08 | NUR ---
DISCHARGE NOTE: SW reviewed chart and spoke with nursing and attending physician. Pt is medically stable for discharge home today with HH services. SW spoke with pt's dtr, Tasneem, via phone to notify of discharge orders. Pt's dtr is aware and agreeable with discharge plan. Pt's dtr states pt needs a new PCP, as the [facility] is not working out with them. Pt's dtr goes to Dr. Beauchamp and requests an appt with him for pt. ANDREEA contacted Dr. Beauchamp's office and scheduled an appt with [facility], [place], at 1015 on 09/26. ANDREEA confirmed with Dr. Beauchamp, that he will follow for HH orders. Pt requires ambulance transportation home due to being bedbound. convention planner to fax info and discharge orders/summary to [facility] and arrange ambulance transportation for 1400 via [facility]. SW updated pt's dtr via phone. Contact info for [facility] and Appt info placed in pt's discharge summary. No additional SW needs identified at this time, but is available to assist should needs arise.
[2018-09-12] MEDS ORDERED: CEPACOL SORETH1 EAC1 PO ×2 (13:17)
--- NOTE | 2018-09-12 14:00 | NUR ---
PATIENT C/O NAUSEA EARLIER, ZOFRAN OFFER AND PATIENT ACCEPTED. OCC COUGH NOTED N/P. FLUIDS ENCOURAGED, INCLUDING JUICES.
[2018-09-12 14:23] VITALS: BP 109/48
--- NOTE | 2018-09-12 15:01 | NUR ---
WOUND CARE FOLLOW UP; ROUNDING WITH DR YODER AND CHEO ROOF BOLTER OPERATOR. THE SACRUM IS STABLE TODAY WITH NO S/S OF INFECTION, NO NEED TO CHANGE THE PLAN AT THIS TIME. RECOMMENDATION; CONTINUE POC DISCUSSED WITH STAFF
--- NOTE | 2018-09-12 15:35 | NUR ---
DISCHARGE INSTRUCTIONS CALLED TO DAUGHTER AND REVIEWED, VERBALIZED UNDERSTANDING. PATIENT DISCHARGED TO HOME VIA CART VIA AMBULANCE, REPORT GIVEN TO [facility]. PATIENT STABLE FOR DISCHARGE.
--- NOTE | 2018-09-12 16:54 | HC ---
[facility] [place] [address] CONSULTATION Name: ANGELIQUE BULLOCK Room #: 359-P [facility] IN M.R.#: [id number] Admission: 09/10/18 ������������������ Attend Phys: Chreyl Bullock Discharge: 09/12/18 ������������������ Date of : 48 Report #: [id number] THIS REPORT FOR: //name// CC: FAM unknown Cheryl Bullock DATE OF SERVICE: 09/11/2018 CHIEF COMPLAINT: Sacral and lower extremity ulcerations. HISTORY OF PRESENT ILLNESS: This is a 68-year-old female patient who was admitted to the hospital with some slurred speech and repetitive phrases. She was found to be initially hypotensive. She was previously here a week ago with respiratory issues and was intubated. She has been nonambulatory and bedridden for 3 years. She is complaining of pain in her right leg area. She is not sure about this as to the origin of the pain, does not recall falling or having any known recent injuries. She has had prior knee replacement, however. She is also noted to have a sacral ulcer. I have been asked to see her with regard to wound care. ALLERGIES: None. CURRENT MEDICATIONS: Include and ceftriaxone. PAST MEDICAL HISTORY: Positive for right total knee replacement in 2013, previous hysterectomy in 2002, chronic lower extremity edema. She has been nonambulatory for 3 years, hyperlipidemia, gastroesophageal reflux, diet-controlled diabetes and chronic kidney disease stage 3. SOCIAL HISTORY: Negative for alcohol or tobacco use. FAMILY HISTORY: Noncontributory. REVIEW OF SYSTEMS: CONSTITUTIONAL: The patient denies fever, chills, or weight loss. NEUROLOGICAL: The patient denies focal weakness, numbness or tingling. EYES: The patient denies visual changes, redness, or drainage. ENT: The patient denies earache, nasal drainage, or sore throat. CARDIOVASCULAR: The patient denies chest pain, palpitations or diaphoresis. PULMONARY: The patient denies cough or shortness of breath. GASTROINTESTINAL: The patient denies nausea, vomiting, diarrhea or abdominal pain. ORTHOPEDIC: The patient does complain of pain in her right leg, ankle and hip area. Other systems in a 14-point review of systems are negative. [address] [address] CONSULTATION Name: ANGELIQUE BULLOCK Room #: 359-P [facility] IN ..#: [id number] Admission: 09/10/18 ������������������ Attend Phys: Cheryl Bullock Discharge: 09/12/18 ������������������ Date of : 48 Report #: [id number] PHYSICAL EXAMINATION: VITAL SIGNS: At this time include temperature 99.4, pulse 81, respiratory rate 20, blood pressure 87/38. GENERAL: This is a chronically ill-appearing female patient who appears to be in minimal distress. HEENT: Head normocephalic. Nose and throat are clear. NECK: Supple. LUNGS: Clear. HEART: Regular. ABDOMEN: Soft. Bowel sounds present. EXTREMITIES: Lower extremities demonstrate that the right lower extremity has some deformity at the knee, but no acute inflammation or swelling. She has significant tenderness along the lower leg, although I cannot see evidence of trauma. She has 3+ edema. Sacral region demonstrates a small stage 3 sacrococcygeal pressure ulceration. It does not appear to be infected and there is no exposure of deep structures. LABORATORY STUDIES: Include white blood cell count 15.9 with hemoglobin 9.9, hematocrit 31.6, platelet count is 213,000. Sodium 137, potassium 3.4, chloride 96, CO2 of 34, BUN 35, creatinine 3.3, albumin is low at 2.6. CLINICAL IMPRESSION: 1. Stage 3 sacrococcygeal pressure ulceration. 2. Bilateral lower extremity edema. 3. Right lower extremity pain, possibly chronic versus a possible acute etiology. 4. Diabetes mellitus. 5. Chronic kidney disease stage 3. 6. Moderate protein-calorie malnutrition with albumin 2.6. RECOMMENDATIONS: At this point in time, the patient will be placed on low air loss mattress with q. 2 hour turning and repositioning. She will need PRAFO boots to both lower extremities. We will recommend zinc oxide moisture barrier cream to the sacrococcygeal region daily and p.r.n. We will check an x-ray of her pelvis as well as the tibia-fibula on the right side just to exclude any new bony abnormality. She will need ongoing nutritional support. I appreciate being asked to see her in consultation. ��������������������������������������������� <ELECTRONICALLY SIGNED> ���������������������������������������� By: Silviano Cox MD ��������������������������������������������� 09/12/18 1654 1518 37 Silviano Cox MD /nt
== END 2018-09-12 15:17 | disposition home health service (06) | DRG 871 ==
LOC: ER 14:35 → EROBS 16:49 → 3W 16:49
PROVIDERS: Nurse Practitioner; ADMIT Hospitalist
PROC: 02HV33Z Insertion of Infusion Device into Superior Vena Cava, Percutaneous Approach (ICD-10-PCS; principal; 2018-09-10)
DX: A41.9 Sepsis, unspecified organism (principal); L89.153 Pressure ulcer of sacral region, stage 3; E44.0 Moderate protein-calorie malnutrition; Z68.41 Body mass index [BMI] 40.0-44.9, adult; E11.22 Type 2 diabetes mellitus with diabetic chronic kidney disease; N18.3 Chronic kidney disease, stage 3 (moderate); K21.9 Gastro-esophageal reflux disease without esophagitis; Z96.651 Presence of right artificial knee joint; I12.9 Hypertensive chronic kidney disease with stage 1 through stage 4 chronic kidney disease, or unspecified chronic kidney disease; E78.5 Hyperlipidemia, unspecified; S83.104A Unspecified dislocation of right knee, initial encounter; X58.XXXA Exposure to other specified factors, initial encounter; Y93.89 Activity, other specified; Z90.710 Acquired absence of both cervix and uterus; Z79.899 Other long term (current) drug therapy; Y92.89 Other specified places as the place of occurrence of the external cause; Y99.8 Other external cause status
CPT/HCPCS: 10879; 27000

== ENCOUNTER 2018-09-13 12:24 | Inpatient (IN) | payer OTHER ==
[2018-09-13] VITALS (17 sets, daily range): BP systolic 75–129; BP diastolic 30–67
[~2018-09-13] VITALS: Ht 165.1 cm; Wt 100.5 kg
[~2018-09-13 12:24] MED LIST changes: +APAP650 PO; +AUGMENTIN 875-1 EACH PO; +CEPACOL SORETH1 EAC1 PO; +KLOR-CON 1010 MEQ PO; +LASIX 20 MG TAB20 MG PO
[2018-09-13 14:23] LABS: ABSOLUTE NEUTROPHILS 3.1 thou/uL (1.4-8.2); BASOPHILS 1.5 % (0.0-2.0); EOSINOPHILS 8.3 % (0.0-3.0); HEMATOCRIT 26.3 % (37.0-47.0); HEMOGLOBIN 8.5 gm/dL (12.0-15.0); LYMPHOCYTES 25.5 % (24.0-44.0); MCH 28.6 pg (26.0-34.0); MCHC 32.4 g/dL (28.0-37.0); MCV 88.1 fL (80.0-100.0); MONOCYTES 9.1 % (1.0-8.0); PLATELET COUNT 195 thou/uL (150-400); POLYS 55.6 % (36.0-66.0); RBC 2.98 mil/uL (4.20-5.00); RDW 16.3 % (10.5-14.5); WBC 5.6 thou/uL (4.0-11.0)
[2018-09-13 14:31] LABS: CALCIUM 8.3 mg/dL (8.5-10.1); CREATININE 4.2 mg/dL (0.6-1.0); POTASSIUM 3.6 mmol/L (3.5-5.1)
[2018-09-13 14:37] LABS: ALBUMIN 2.7 g/dL (3.4-5.0); TOTAL BILIRUBIN 0.5 mg/dL (<0.1-1.0); TOTAL PROTEIN 8.1 g/dL (6.4-8.2)
[2018-09-13 15:08] LABS: URINE BILIRUBIN NEGATIVE (Negative); URINE BLOOD 3+ (Negative); URINE CLARITY CLEAR; URINE COLOR YELLOW; URINE GLUCOSE-RANDOM* NEGATIVE (Negative); URINE KETONES NEGATIVE (Negative); URINE LEUKOCYTES 3+ (Negative); URINE NITRITE NEGATIVE (Negative); URINE PROTEIN (DIPSTICK) 1+ (Negative); URINE SPECIFIC GRAVITY 1.015 (1.005-1.035); URINE UROBILINOGEN 0.2 E.U./dl (0.2-1.0)
[2018-09-13 15:19] LABS: CASTS None Seen /LPF (None Seen); SQUAMOUS 0-3 Few /LPF (0-3); URINE RBC 3-10 Few /HPF (0-2); URINE WBC >25 Many /HPF (0-5)
[2018-09-13 15:20] LABS: AMORPHOUS URATES Many /LPF (None Seen); BACTERIA 1-9 Few /HPF (None Seen); WBC CLUMPS Packed (None Seen)
--- NOTE | 2018-09-13 21:35 | NUR ---
VASCULAR ACCESS CONSULTED FOR THIS PT IN ICU. A [id number] PLACED IN RT IJ PER HOSPITAL P&P, PLEASE SEE INSERTION COMMENTS AND NOTE FOR DETAILS
[2018-09-13 23:15] LABS: ALBUMIN 2.7 g/dL (3.4-5.0); DIRECT BILIRUBIN 0.2 mg/dL (<0.1-0.3); TOTAL BILIRUBIN 0.4 mg/dL (<0.1-1.0); TOTAL PROTEIN 8.1 g/dL (6.4-8.2)
[2018-09-13 23:16] LABS: TROPONIN-I 2.54 ng/mL (<0.06)
[2018-09-13 23:21] LABS: INR 1.1; PROTIME 11.9 Seconds (9.3-11.4)
[2018-09-13 23:28] LABS: FIBRINOGEN 378.6 mg/dL (210-360)
[2018-09-13 23:36] LABS: BE(vivo) 0.3 mmol/L (-2 to +3); HCO3 27.9 mmol/L (22.0-26.0); PCO2 62.7 mmHg (35.0-45.0); PO2 93.8 mmHg (80.0-100.0); sO2 95.9 % (92.0-98.0)
[2018-09-13 23:37] LABS: pH 7.266 (7.360-7.450)
[2018-09-14] VITALS (57 sets, daily range): BP systolic 78–151; BP diastolic 35–85
[2018-09-14 00:09] LABS: CALCIUM 7.9 mg/dL (8.5-10.1); CREATININE 4.6 mg/dL (0.6-1.0); POTASSIUM 3.8 mmol/L (3.5-5.1)
[2018-09-14 01:21] LABS: BE(vivo) 1.9 mmol/L (-2 to +3); HCO3 29.1 mmol/L (22.0-26.0); PCO2 61.5 mmHg (35.0-45.0); PO2 94.3 mmHg (80.0-100.0); pH 7.293 (7.360-7.450); sO2 96.2 % (92.0-98.0)
--- NOTE | 2018-09-14 03:07 | NUR ---
SEE [facility] FOR ASSESSMENT/VS. PT A/O X3. IRRITABLE AT TIMES WITH WAKING PT UP FOR MEDICAL/NURSING CARE. EXPLAINED ALL PROCEDURES. MONITOR SHOWS SR/SB. DENIES ANY CHEST PAIN. PT ON BIPAP AFTER CRITICAL PH. DR SALMERON WAS HERE TO SEE PT AWARE OF CRITICAL VALUES. DR DONOVAN UPDATED ON VS, URINE OUTPUT WELL. STARTED ON LEVOPHED ORDERED TO MAINTAIN MAP>65. UO SCANT. CT OF CHEST/VQ SCAN/ AND ECHO ALL DONE. CONT PLAN OF CARE,
[2018-09-14 05:44] LABS: CALCIUM 7.9 mg/dL (8.5-10.1); CREATININE 4.5 mg/dL (0.6-1.0); POTASSIUM 3.6 mmol/L (3.5-5.1)
[2018-09-14 05:52] LABS: TROPONIN-I 1.93 ng/mL (<0.06)
--- NOTE | 2018-09-14 07:56 | 2DMMODE ---
[facility] [address] [place] [address] 2 D/M-MODE ECHOCARDIOGRAM Name: ANGELIQUE BULLOCK Room #: 245-P ADM IN M.R.#: [id number] ������������� Admission: 09/13/18 ������������� Attend Phys: Robert Prater, Discharge: ��� ������������� ��� Date of : 48 Date of Service: 09/14/18 0755 �� Report #: [id number] �������� ��������������������������������������������[id number] THIS REPORT FOR: //name// APPROVED REPORT Study performed: 09/13/2018 21:06:54 EXAM: Comprehensive 2D, Doppler, and color-flow Echocardiogram Patient Location: Bedside Room #: [facility] Status: stat BSA: 2.08 HR: 62 bpm BP: 117/67 mmHg Rhythm: NSR Other Information Study Quality: Adequate Technically limited study due to inability to position patient. Risk Factors: Cardiac Risk Factors: HTN, Hyperlipidemia, DM Indications Hypotension Congestive Heart Failure Dyspnea Palpitations 2D Dimensions IVSd: 10.31 (7-11mm) LVOT Diam: 20.00 (18-24mm) LVDd: 37.69 mm PWd: 10.53 (7-11mm) Ascending Ao: 31.63 (22-36mm) LVDs: 26.13 (25-40mm) Aortic Root: 27.59 mm LV Single Plane 4CH: 56.55 % LV Single Plane 2CH: 55.83 % Biplane EF: 55.9 % Volumes Left Atrial Volume (Systole) Single Plane 4CH: 37.17 mL Single Plane 2CH: 31.48 mL LA ESV Index: 18.00 mL/m2 [facility] [address] [address] 2 D/M-MODE ECHOCARDIOGRAM Name: KOBEANGELIQUE Room #: 245-P [facility] IN ..#: [id number] ������������� Admission: 09/13/18 ������������� Attend Phys: Robert Prater, Discharge: ��� ������������� ��� Date of : 48 Date of Service: 09/14/18 0755 �� Report #: [id number] �������� ��������������������������������������������[id number] Aortic Valve AoV Peak Td.: 1.34 m/s AO Peak Gr.: 7.13 mmHg LVOT Max P.88 mmHg LVOT Max V: 0.85 m/s GRAY Vmax: 2.03 cm2 Mitral Valve E/A Ratio: 1.3 MV Decel. Time: 367.64 ms MV E Max Td.: 0.70 m/s MV A Td.: 0.54 m/s MV PHT: 106.62 ms IVRT: 92.27 ms TDI E/Lateral E': 8.75 E/Medial E': 11.67 Medial E' Td.: 0.06 m/s Lateral E' Td.: 0.08 m/s Pulmonary Valve PV Peak Td.: 0.87 m/s PV Peak Gr.: 3.03 mmHg ND End Vmax: 1.41 m/s Pulmonary Vein P Vein S: 0.43 m/s P Vein A: 0.23 m/s P Vein D: 0.38 m/s P Vein A Dur.: 110.7 msec P Vein S/D Ratio: 1.13 Tricuspid Valve TR Peak Td.: 2.76 m/s RAP Estimate: 10.00 mmHg TR Peak Gr.: 30.54 mmHg PA Pressure: 41.00 mmHg Left Ventricle The left ventricle is normal size. There is normal LV segmental wall motion. Borderline concentric left ventricular hypertrophy. The left ventricular systolic function is normal. The left ventricular ejection fraction is within the normal range. LVEF is 55-60%. The left ventricular diastolic function is normal. Right Ventricle Right ventricle is dilated. Right ventricle is hypokinetic. [facility] [address] [place] [address] 2 D/M-MODE ECHOCARDIOGRAM Name: ANGELIQUE BULLOCK Room #: 245-P [facility] IN ..#: [id number] ������������� Admission: 09/13/18 ������������� Attend Phys: Robert Prater, Discharge: ��� ������������� ��� Date of : 48 Date of Service: 09/14/18 0755 �� Report #: [id number] �������� ��������������������������������������������[id number] The left atrium size is normal. Right atrium is dilated. Catheter tip is present in the right atrium. Aortic Valve The aortic valve is normal in structure. No aortic regurgitation is present. There is no aortic valvular stenosis. Mitral Valve The mitral valve is normal in structure. Trace mitral regurgitation. No evidence of mitral valve stenosis. Tricuspid Valve The tricuspid valve is normal in structure. Mild to moderate tricuspid regurgitation. Pulmonary artery pressure is 41 mmHg. Pulmonic Valve The pulmonary valve is normal in structure. Mild to moderate pulmonic regurgitation. Great Vessels The aortic root is normal in size. The ascending aorta is normal in size. IVC is normal in size and collapses <50% with inspiration. Pericardium There is no pericardial effusion. <Conclusion> The left ventricle is normal size. LVEF is 55-60%. Right atrium is dilated. Catheter tip is present in the right atrium. The aortic valve is normal in structure. The mitral valve is normal in structure. Trace mitral regurgitation. The tricuspid valve is normal in structure. Mild to moderate tricuspid regurgitation. Pulmonary artery pressure is 41 mmHg. The pulmonary valve is normal in structure. Mild to moderate pulmonic regurgitation. There is no pericardial effusion. ��������������������������������������������� <ELECTRONICALLY SIGNED> ���������������������������������������� By: Tino Grande MD ��������������������������������������������� 09/14/18 0755 0755 0755 Tino Grande MD /INF
--- NOTE | 2018-09-14 07:58 | NUR ---
PT MORE ALERT THIS AM. DR CARDONA HERE. STAT CT OF ABD DONE. IVF INFUSING ORDERED. LEVOPHED CONT TO KEEP MAP>64. CONT PLAN OF CARE.
--- NOTE | 2018-09-14 09:08 | EKG ---
[place] [address] [address] [facility] [place] [address] ELECTROCARDIOGRAM REPORT Name: ANGELIQUE BULLOCK Room #: 245-P ADM IN M.R.#: [id number] ������������������ Admission: 09/13/18 ������������������ Attend Phys: Robert Prater MD Discharge: ������������������ Date of : 48 Report #: [id number] ����������������������������������������������������������������� [id number] THIS REPORT FOR: //name// [facility] ED Test Date: 2018-09-13 Test Time: 12:32:14 Pat Name: ANGELIQUE BULLOCK Department: Room: [facility] Gender: F Cello Teacher: : 1950 Requested By: Yakelin Degroot Order Number: [id number] MD: Romel Michaud Measurements Intervals [place] Rate: 79 P: 59 MS: 204 QRS: 46 QRSD: 105 T: 258 QT: 431 QTc: 495 Interpretive Statements Sinus rhythm Early R-wave progression Nonspecific ST and T wave abnormality Prolonged QT interval Compared to ECG 09/10/2018 14:55:26 Nonspecific change in the ST and T-wave segments Electronically Signed On 09-14-2018 9:07:45 CDT by Romel Michaud [email or web address] ��������������������������������������������� <ELECTRONICALLY SIGNED> ���������������������������������������� By: Romel Michaud MD, [facility] ��������������������������������������������� 09/14/18 0907 1232 1232 Romel Michaud MD, [facility] /EPI
--- NOTE | 2018-09-14 10:43 | NUR ---
CENTRAL LINE WITHDREW 4CM- FOLLOW UP XRAY SHOWING LINE IS NOW AT THE CAVOATRIAL JUNCTION. JU NOTIFIED, LINE IS NOW IN GOOD POSITION FOR USE
--- NOTE | 2018-09-14 15:35 | NUR ---
ALERT AND ORIENTED, IRRITABLE AT TIMES. VITALS STABLE AND ABLE TO WEAN DOWN LEVO GTT. KEPT NPO THIS MORNING DUE TO CT RESULTS AND SURGEON CONSULTED. US BLE COMPLETED EARLIER. ORDERS FOR TEMP HD CATH RECEIVED, PATIENT INITIALLY REFUSED TO SIGN CONSENT EVEN AFTER THE RADIOLOGIST TALKED TO HER. PATIENT'S DAUGHTER CAME IN AND TALKED TO HER AND FINALLY AGREED TO HD CATH. NOW IN I.R.
--- NOTE | 2018-09-14 15:40 | NUR ---
DISCHARGE PLANNING. PATIENTIS CURRENT WITH [facility]. CLINICAL INFORMATION FAXED TO MARTINA MORRIS INTAKE LIAISON. UNIT SW AWARE. FOLLOWING TO ASSIST WITH DISCHARGE NEEDS.
--- NOTE | 2018-09-14 16:04 | NUR ---
CM ASSESSMENT: CASE OPENED FOR DC PLANNING. CLINICAL INFO REVIEWED. PT ADMIT FORM HOME, LIVES WITH DTR FERNANDO [phone]. SEPSIS AND ARF. PT KNOWN FORM PREVIOUS ADMITS. JUST DISCHARGED FROM [facility] THIS WEEK. PT IS BED BOUND AND REQUIRES ASSIST WITH ADLS. DME AT HOME INCLUDE W/C AND O2. PT WAS TRACHED AT [facility] 06/2018 AND TRANSITIONED TO [facility] WHERE PT WEANED AND WAS DECANNULATED. [facility], PT WENT TO SKILLED REHAB AT [facility] AND DISCHARGED HOME WITH [facility]. SPOKE WITH [facility] WHO CONFIRMS HH RN DID FIRST VISIT AND PT WAS TRANSFERRED TO [facility]. DR. OBEY ROQUE WAS FOLLOWING FOR HH. NEW PT APPT WITH DR. HURTADO AND HE WILL FOLLOW FOR HH. IN PAST PT UTILIZED VISITING PHYSICIANS AND SPOKE WITH INTAKE AND LAST SEEN 2015 BUT CALLED DTR TODAY TO MAKE APPT. PT HAVING DIALYSIS CATH PLACED TODAY AND REMAIINS IN ICU. NO W/E DC PLANNED. WILL FOLLOW TO ASSIST WITH COORDINATION OF DC NEEDS.
--- NOTE | 2018-09-14 17:04 | NUR ---
CONSULT TO DR. NERI CALLED AND MESSAGE LEFT ON VOICE MAIL. RECEIVED CALL BACK FROM HIM AND WILL SEE PATIENT ON MONDAY UNLESS SOMETHING CHANGES AND IS NEEDED URGENTLY.
[2018-09-15] VITALS (55 sets, daily range): BP systolic 80–147; BP diastolic 40–81
--- NOTE | 2018-09-15 04:20 | NUR ---
ASSUMED CARE OF PT. AT 1900. PT. IS A&OX4, OCCASIONALLY DROWSY. PT. IS PLEASANT AND CALM. AFEBRILE. DENIES PAIN. LEVOPHED GTT TURNED BACK ON FOR LOW BLOOD PRESSURES THROUGHOUT THE NIGHT, TITRATION CHARTED. OTHER VSS. PT. TOLERATES BIPAP THROUGHOUT THE NIGHT,CONTINUES TO BE SINUS BRADYCARDIC WHILE ASLEEP. ASSESSMENTS AND VITAL SIGNS CHARTED. PT. IS PROGRESSING TOWARDS GOALS. WILL CONTINUE TO MONITOR.
[2018-09-15 05:51] LABS: ALBUMIN 2.4 g/dL (3.4-5.0); CALCIUM 7.7 mg/dL (8.5-10.1); CREATININE 4.4 mg/dL (0.6-1.0); POTASSIUM 3.4 mmol/L (3.5-5.1)
[2018-09-15 06:00] LABS: TROPONIN-I 0.98 ng/mL (<0.06)
--- NOTE | 2018-09-15 19:00 | NUR ---
Pt awake all day. Pt has chewed on her bubble gum all day. Pt spoke with physicians and her daughter regarding surgery for gall bladder. Pt does not feel she needs the surgery and does not want the surgery. Dr Dumont spoke to daughter this evening. Sinus bradycardia. Levophed gtt weaned off at 1500. Lasix 40 mg IV x one dose today. Large urine output. Incontinent of two brown liquid stools. Maintained in MRSA isolation. Report given to RN assuming care.
[2018-09-16] VITALS (28 sets, daily range): BP systolic 96–167; BP diastolic 49–98
--- NOTE | 2018-09-16 06:00 | NUR ---
PT CHEWED GUM AND BLEW BIG BUBBLES ALL NOCT. STATES I LOVE MY BUBBLE GUM!
--- NOTE | 2018-09-16 06:00 | NUR ---
[facility], HAD ONE LARGE BROWN LIQUID STOOL HAS REFUSED TO TURN NOR BE BATHED. 1400 CC UO THIS SHIIFT. PT JUST 'WANTS TO GO HOME WILLK CONT TO MONITOR.
[2018-09-16 06:28] LABS: ALBUMIN 2.6 g/dL (3.4-5.0); CALCIUM 7.9 mg/dL (8.5-10.1); CREATININE 3.7 mg/dL (0.6-1.0); POTASSIUM 3.6 mmol/L (3.5-5.1)
--- NOTE | 2018-09-16 15:05 | NUR ---
Pt had small loose stool that absorbed into pad on bed-unable to obtain specimen to send to lab. Pt had abrupt onset of nausea with vomiting an vomited 400 ml of mostly clear liquid.
--- NOTE | 2018-09-16 19:15 | NUR ---
Pt has reported not feeling well today with complaints of abdominal discomfort, nausea/vomiting, and pain/cramping in her right leg. Pt is receiving Lasix (IV) with good urine output. Order was received for compazine. Pt did not have any further vomiting but did continue to have poor appetite and feeling of nausea. Pt has also reported feeling cold. Heating blanket used to blow warm air under pts blankets (Dr Prater aware of pt temps running below normal). Pt wanting to return to her home. No contact with family today. Maintained in isolation. Report given to CARLOS Logan assuming care.
[2018-09-17 03:00] VITALS: BP 82/58
[2018-09-17 05:23] LABS: HEMATOCRIT 34.3 % (37.0-47.0); HEMOGLOBIN 10.9 gm/dL (12.0-15.0); MCH 27.6 pg (26.0-34.0); MCHC 31.8 g/dL (28.0-37.0); MCV 86.8 fL (80.0-100.0); PLATELET COUNT 250 thou/uL (150-400); RBC 3.95 mil/uL (4.20-5.00); RDW 16.2 % (10.5-14.5); WBC 5.8 thou/uL (4.0-11.0)
[2018-09-17 05:25] VITALS: BP 92/63
[2018-09-17 05:27] LABS: ALBUMIN 2.3 g/dL (3.4-5.0); CALCIUM 8.2 mg/dL (8.5-10.1); CREATININE 3.7 mg/dL (0.6-1.0); MAGNESIUM 1.7 mg/dL (1.8-2.4); PHOSPHORUS 3.7 mg/dL (2.5-4.9); POTASSIUM 3.4 mmol/L (3.5-5.1)
--- NOTE | 2018-09-17 06:14 | NUR ---
AOX4. ON 1L NC. NO SIGNS OF DISTRESS AT REST. VSS. AFEBRILE. 2 LIQUID STOOLS DURING THE NIGHT. PT REFUSES FECAL MANAGEMENT SYSTEM. UNABLE TO ACQUIRE C. DIFF SAMPLE. PT REFUSES TURNS AT TIMES. URINE OUTPUT NOTED. MEDICATED FOR PAIN. WILL CONTINUE TO MONITOR.
[2018-09-17 08:00] VITALS: BP 94/50
[2018-09-17 08:44] LABS: ABSOLUTE NEUTROPHILS 1.5 thou/uL (1.4-8.2); PLATELET ESTIMATE NORMAL
--- NOTE | 2018-09-17 15:03 | NUR ---
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 SPOKE WITH ARTURO IN INTAKE AND SHE RECEIVED UPDATE. DCP TO FOLLOW.
--- NOTE | 2018-09-17 15:15 | NUR ---
PATIENT AT BASELINE FOR OT AND WAS DISCHARGED FROM ACUTE OT SERVICES 09/13/18
--- NOTE | 2018-09-17 15:30 | NUR ---
VASCULAR ACCESS NURSE ROUNDING- CENTRAL LINE IS STILL NEEDED AT THIS TIME THE PATIENT HAS DIFFICULT PERIPHERAL VASCULAR. WE WILL RE-EVALUATE DAILY. AT THIS TIME SHE IS STILL IN ICU WITH A TEMPORARY DIALYSIS ACCESS WELL
[2018-09-17 16:00] VITALS: BP 97/56
--- NOTE | 2018-09-17 17:24 | NUR ---
FOLLOWING FOR DC PLANNING. CLINICAL INFO REVIEWED AND MET WITH PT WHO IS ALERT AND ORIENTED AND ALSO SPOKE WITH PT'S DTR FERNANDO BY PHONE. PT IS M/S TELE STATUS OF 09/16/18 WAITNG FOR BED ASSIGNMENT. PT HAD DIALYSIS CATH PLACED 09/14/18 BUT NOT USED YET. CREATININE HOLDING AROUND 3.7 LAST COUPLE DAYS. SURGERY FOLLOWING BUT PT REFUSES CHOLEY. TALKED TO PT AND DTR ABOUT CURRENT CLINICAL STATUS AND DC PLANNING. REVIEWED LTAC AND SKILLED OPTIONS. PT AND DTR WANT TO RETURN HOME WHEN MEDICALLY STABLE WITH [facility] AND ANY NEEDS DME. DTR WOULD BE AGREEABLE TO SKILLED AT [facility] OR [facility] BUT PT WANTING TO REUTRN HOME. PT IS OUT OF HER MEDICARE ACUTE DAYS AND REVIEWED THIS AND OPTION FOR USE OF HER 60 MEDICARE LIFETIME RESERVE DAYS. BOTH PT AND DTR WANT TO THINK ABOUT THIS AND CM WILL F/U TOMORROW FOR DECISION AND COMPLETE FORM. DTR WAS OPEN TO [facility] ST[facility] AND REFERRRAL FAXED TO [facility] BUT WAS INFORMED BY ABDIEL TAYLOR, FACILITY NOT ACCEPTING PT FEEL WOULD BE SHORT MEDICARE STAY (LESS THAN 25 DAYS), AND PT'S SECONDARY AETNA IS OON AT [facility] SO WON'T COVER STAY.
--- NOTE | 2018-09-17 19:39 | NUR ---
ASSUMED CARE 0700 09/17/18, PT ASSESSMENTS AND VSS COMPLETE PER MS TELE. PT ALERT AND ORIENTED X 4, PT ABLE TO FOLLOW COMMANDS TO BEST ABILITY. PT SR ON THE MONITOR, AFEBRILE. PT ON RA THIS TIME, SATS IN THE HIGH 90'S, NO SOA NOTED. PT REFUSED BREAKFAST AND LUNCH TODAY, BUT DID IT 40% OF DINNER. HANDLEY IN PLACE, LOW OUTPUT NOTED, RADIOLOGIC TECHNOLOGIST MAMMOGRAM FOLLOWING. PLAN OF CARE- CONT TO MONITOR.
--- NOTE | 2018-09-17 20:21 | HC ---
[facility] [place] [address] [address] [place] [address] CONSULTATION Name: ANGELIQUE BULLOCK Room #: 245-P ADM IN M.R.#: [id number] Admission: 09/13/18 ������������������ Attend Phys: Robert Prater MD Discharge: ������������������ Date of : 48 Report #: [id number] THIS REPORT FOR: //name// CC: FAM unknown Robert Prater DATE OF SERVICE: 09/14/2018 INFECTIOUS DISEASES CONSULTATION REASON FOR CONSULTATION: I was asked to evaluate concerning septic shock. HISTORY OF PRESENT ILLNESS: The patient is a 68-year-old residential resident who presented on 09/09/2018 with Gram-negative bacteremia, thought to be urinary tract source. Treated with Zosyn and discharged on Augmentin on 09/12/2018. Returned within 24 hours with lethargy, high flow hypoxemia. She denied any nausea, vomiting or diarrhea. She has had intermittent cough. No sputum production. No new rashes or new decubiti. It is noted that she was in the residential previously, but she was discharged to home with her daughter. In the Emergency Room, she was transported to ICU for further treatment. Remains on low dose Levophed. She is on 2 liters of oxygen per nasal cannula. She does report chronic knee pain. She has had dislocation of her right total knee arthroplasty. This has been a chronic issue for her. She reports being hungry. Reports no diarrhea or flank pain. ALLERGIES: None known. MEDICATIONS: As noted on her MAR, now on Levaquin and Zosyn. PAST MEDICAL HISTORY: Right total knee arthroplasty, hysterectomy, bilateral lower extremity edema, hypertension, hyperlipidemia, gastroesophageal reflux, diabetes, chronic kidney disease. FAMILY HISTORY: Noncontributory. SOCIAL HISTORY: Nonsmoker, no significant alcohol intake. REVIEW OF SYSTEMS: Ten-point review of systems was negative other than what has been described above. PHYSICAL EXAMINATION: VITAL SIGNS: She is afebrile, blood pressure is now stable on Levophed drip. She has a right IJ catheter in place. Small sacral decubitus. Has chronic venous stasis disease. No palpable adenopathy. HEENT: Eyes, without scleral icterus. Mouth without mucositis. NECK: Supple. [facility] [address] [place] [address] CONSULTATION Name: ANGELIQUE BULLOCK Room #: 245-P ADM IN M.R.#: [id number] Admission: 09/13/18 ������������������ Attend Phys: Robert Prater MD Discharge: ������������������ Date of : 48 Report #: [id number] LUNGS: Clear. HEART: Regular, without murmur, gallop or rub. ABDOMEN: Obese, soft, did not appear tender. There was no hepatosplenomegaly. There was no guarding or rebound. External genitalia with indwelling Beasley catheter. No lesions or rash. RECTAL: Not performed. EXTREMITIES: Right knee was dislocated. 2+ peripheral edema with chronic venous stasis changes. The patient was very sensitive in the right leg. NEUROLOGIC: Cranial nerves intact. Strength was diminished in her lower extremities and was symmetric. Unable to move without significant pain in the right knee. PSYCHIATRIC: Mood appeared alert and cooperative. LABORATORY STUDIES: On 2 liters of oxygen per nasal cannula, her pO2 was 93, pCO2 of 62, pH 7.26. Sodium 139, potassium 3.6, creatinine 4.5, AST 54, ALT 11, alkaline phosphatase 115, bilirubin 0.5. Hemoglobin 8.5, WBC 5.6, platelet count 195,000. Chest x-ray with pulmonary edema. VQ scan was negative or low probability. CT of the chest showed vascular congestion discharged fatty liver. CT of the abdomen and pelvis showed right greater than left nephritis and gallbladder with thickening, pericholecystic fluid and gallstones. IMPRESSION: 1. Gram-negative bacteremia on 09/10/2018, still awaiting identification. Suspecting intra-abdominal source, whether urinary tract or biliary tract is not yet defined. No diarrhea or changes on CT scan to suggest colitis. Now with shock, septic versus cardiogenic combination, likely. 2. Acute renal failure. Has evidence of bilateral nephritis. 3. Bilateral kidney inflammatory changes concerning for pyelonephritis, left greater than right. There was no urine culture sent last hospital stay. RECOMMENDATION: We will continue broad antibiotic coverage pending culture results. We will resend urinalysis and urine culture. We will adjust her antibiotics for renal failure. The patient will remain in the ICU for full support with fluids and vasopressors. Nephrology is assisting with her acute on chronic renal failure. ��������������������������������������������� <ELECTRONICALLY SIGNED> ���������������������������������������� By: Kennedy Ratliff MD ��������������������������������������������� 09/17/18 2021 1342 0405 Kennedy Ratliff MD /nt
[2018-09-17 21:00] VITALS: BP 112/49
[2018-09-18] VITALS (7 sets, daily range): BP systolic 111–137; BP diastolic 49–70
[2018-09-18 05:11] LABS: HEMATOCRIT 31.3 % (37.0-47.0); HEMOGLOBIN 9.9 gm/dL (12.0-15.0); MCHC 31.7 g/dL (28.0-37.0); MCV 88.4 fL (80.0-100.0); RBC 3.54 mil/uL (4.20-5.00); RDW 16.6 % (10.5-14.5); WBC 7.5 thou/uL (4.0-11.0)
[2018-09-18 05:31] LABS: ALBUMIN 2.4 g/dL (3.4-5.0); CALCIUM 8.2 mg/dL (8.5-10.1); CREATININE 3.7 mg/dL (0.6-1.0); MAGNESIUM 1.6 mg/dL (1.8-2.4); PHOSPHORUS 3.7 mg/dL (2.5-4.9); POTASSIUM 4.2 mmol/L (3.5-5.1)
--- NOTE | 2018-09-18 05:56 | NUR ---
PT WAS WELCOMED BACK TO 3W A TRANSFER FROM ICU. PT IS VERY NICE AND EASY TO PLEASE. FOLLOWING POC WITH IVPB. LOW LOSS AIR PUMP ORDERED FOR PT. STILL NEEDING SPUTUM SAMPLE AND STOOL SAMPLE. PT IN ISOLATION FOR MRSA RESPIRATORY. ISOLATION PRECAUTIONS BEING FOLLOWED. PT ASKED FOR PO TRAMADOL AND 1X DOSE OF FLEXERIL. VSS AND PT HAS NO OTHER COMPLAINTS. HOURLY ROUNDING. PT IS BEDREST AND USES WHEELCHAIR TO MOVE.
--- NOTE | 2018-09-18 12:49 | NUR ---
CM MET WITH PATIENT AND HER DAUGHTER FERNANDO AT THE BEDSIDE TO SEE IF THEY HAVE DECIDED TO USE LIFETIME RESERVE DAYS OR TO ELECT NOT TO. THEY STATE THEY ARE STILL UNDECIDED AND NEED MORE TIME TO DISCUSS AND THINK ABOUT IT.
--- NOTE | 2018-09-18 12:51 | NUR ---
SW reviewed chart and spoke with nursing and attending physician. Pt was transferred to from ICU and is slowly progressing towards goals for discharge. Pt has temporary dialysis catheter in place, and it may be removed should pt's condition continue to improve. At this time, plan is for pt to discharge home and resume HH services through [facility]. conservation planner to fax clinical info to [facility] for review. ANDREEA is following to assist as needed with discharge planning.
--- NOTE | 2018-09-18 20:29 | NUR ---
pt is A&OX3, PT's vs are stable, pt denies pain and sob today, pt needs help change position.pt has slowly meet care plan goals.
[2018-09-19 03:45] VITALS: BP 109/54
[2018-09-19 07:04] LABS: HEMOGLOBIN 9.9 gm/dL (12.0-15.0); MCH 28.2 pg (26.0-34.0); MCV 85.3 fL (80.0-100.0); RBC 3.51 mil/uL (4.20-5.00); WBC 7.6 thou/uL (4.0-11.0)
--- NOTE | 2018-09-19 07:29 | NUR ---
SLEPT MOST OF SHIFT. INCONTINENT OF STOOL LAST NOC AND SAMPLE SENT. WORKING ON GOALS AND PLAN OF CARE FOR NOC. PROGRESSING SLOWLY TOWARDS DISCHARGE GOALS SLOWLY. TRAMADOL GIVEN FOR PAIN CONTROL. CONTINUE TO ASSES CLOSELY. REPOSITIONED PRN.
[2018-09-19 07:36] LABS: ALBUMIN 2.7 g/dL (3.4-5.0); CALCIUM 8.6 mg/dL (8.5-10.1); CREATININE 3.2 mg/dL (0.6-1.0); PHOSPHORUS 3.6 mg/dL (2.5-4.9); POTASSIUM 3.8 mmol/L (3.5-5.1)
[2018-09-19 07:52] VITALS: BP 138/71
--- NOTE | 2018-09-19 08:09 | HC ---
[facility] [place] [address] [place] [address] CONSULTATION Name: ANGELIQUE BULLOCK Room #: 349-I ADM IN M.R.#: [id number] Admission: 09/13/18 ������������������ Attend Phys: Robert Prater MD Discharge: ������������������ Date of : 48 Report #: [id number] THIS REPORT FOR: //name// CC: FAM unknown Robert Prater DATE OF SERVICE: 09/17/2018 INTRODUCTION: The patient is a 68-year-old female who has been admitted to the ICU at [facility] with chronic kidney disease and multiple health complications as a result, she has a history of diabetes, severe lower extremity edema with skin sequela. Pedal exam; dorsalis pedis, posterior tibial pulses are not palpable predominantly I believe due to edema, which is profound. Neurologically, she does have a normal sensation in her feet. Her nails are severely thickened, elongated, show clinical evidence of onychomycosis in varying degrees. Several nails are over 2 cm long. The left hallux nail is 4-5 cm long. There are no acute findings at this time. Nails were debrided. No additional underlying pathology was noted. IMPRESSION: 1. Diabetes mellitus. 2. Chronic kidney disease and multiple other health disorders. 3. Onychomycosis with onychodystrophy. PLAN: The patient's nails were debrided. There is no additional treatment required at the time of treatment. We did discuss general foot hygiene issues and methods for avoiding foot complications. It has been a pleasure opportunity of caring for the patient. I would be pleased to follow up with her upon request. ��������������������������������������������� <ELECTRONICALLY SIGNED> ���������������������������������������� By: Roshan Yanes DPM ��������������������������������������������� 09/19/18 0809 1252 0905 Roshan Yanes DPM /nt
[2018-09-19 11:22] VITALS: BP 136/76
--- NOTE | 2018-09-19 12:49 | NUR ---
pt's assessment has done, pt is A&OX3, PT's vs are stable, pt is continuing IV ABT and pain management, pt needs help change position, pt denies pain and sob at this time, pt has slowly meeting care plan goals.
[2018-09-19 15:03] VITALS: BP 136/65
--- NOTE | 2018-09-19 16:36 | NUR ---
SW reviewed chart and spoke with nursing and attending physician. Pt is progressing towards goals for discharge. cyber ops planner faxed clinical info [facility] for review. Plan is for pt to d/c home and resume HH services. [facility] liaison to see pt tomorrow. ANDREEA is following to assist as needed with discharge planning.
[2018-09-19 17:03] VITALS: BP 115/70
[2018-09-19 19:09] VITALS: BP 110/61
[2018-09-20 04:20] VITALS: BP 138/62
--- NOTE | 2018-09-20 05:10 | NUR ---
SLEPT MOST OF SHIFT. ASSIST TO TURN NEEDED. INCONTINENT OF MODERATE LOOSE BROWN/GREEN STOOL X1. WORKING ON GOALS AND PLAN OF CARE FOR NOC. DENIES COMPLAINTS OF PAIN OR SHORTNESS OF AIR. PROGRESSING TOWARDS DISCHARGE GOALS SLOWLY. CONTINUE TO ASSES CLOSELY.
[2018-09-20 05:12] LABS: HEMATOCRIT 26.6 % (37.0-47.0); HEMOGLOBIN 8.8 gm/dL (12.0-15.0); MCH 28.7 pg (26.0-34.0); MCHC 33.2 g/dL (28.0-37.0); MCV 86.3 fL (80.0-100.0); RBC 3.08 mil/uL (4.20-5.00); RDW 16.2 % (10.5-14.5); WBC 5.8 thou/uL (4.0-11.0)
[2018-09-20 05:23] LABS: ALBUMIN 2.4 g/dL (3.4-5.0); CALCIUM 8.5 mg/dL (8.5-10.1); CREATININE 2.4 mg/dL (0.6-1.0); PHOSPHORUS 3.2 mg/dL (2.5-4.9); POTASSIUM 3.3 mmol/L (3.5-5.1)
[2018-09-20 08:03] VITALS: BP 139/71
--- NOTE | 2018-09-20 10:16 | NUR ---
Nutrition: Pt seen for LOS. Very recent August admit, seen by RD on 09/11. Here w/ cholecystitis, diarrhea (in addition to CHF exacerbation, CKD). Per provider notes pt refused surgery for cholecystitis. Pt refusing many meals prior to 09/18 d/t not liking renal diet restrictions d/t lack of salt/taste. Last 2 days, finally eating more - averaging 40-60% of meals now. Lacks teeth, needing soft foods. Spent time in education on rationale for low salt/no added salt, but got the impression pt unlikely to change ways fully s/p discharge. Likes to add a "pinch" to foods every meal. Provider note mentions moderate - severe malnutrition; defer diagnosis at this time. Note pressure wound documented between buttock. Pt will likely resume good appetite/intake after d/c and consume lots more protein d/t having access to salt again. Identified alternative flavoring methods to try. Remains low nutrition risk d/t lack of desired interventions and renal education provided.
--- NOTE | 2018-09-20 14:11 | NUR ---
ASSUMED CARE OF PT AT 0700 THIS SHIFT. PT HAS NOT BEEN COMPLETELY COOPERATIVE, DOES NOT WANT HER LEGS TOUCHED, AND REFUSING TURNS, CURRENTLY USING PILLOWS TO PROP UP ON BED. PT WANTS TOGET OUT OF THE HOSPITAL AND GO HOME, WAITING ON HOME HEALTH EVALUATION. PT IS CURRENTLLY RESTING COMFORTABLY IN ROOM. PT HAS DENIED ANY PAIN THIS SHIFT. PT HAS NOT HAD VISITORS THIS SHIFT, EDUCATION WAS PROVIDED. PLAN OF CARE IS TO KEEP MONITORING CLOSELY AT THIS TIME UNTILL DISCHARGE.
[2018-09-20 15:30] VITALS: BP 149/62; BP 151/70
[2018-09-20 15:59] VITALS: BP 151/70
--- NOTE | 2018-09-20 16:18 | NUR ---
DISCHARGE NOTE: SW notified by nursing that pt has discharge orders to go home today with services. [facility] liaison was onsite earlier today and met with pt. ANDREEA faxed final discharge orders/summary to [facility] and notified liasion. ANDREEA also spoke with Nancy in intake at [facility] to notify of pt's discharge. SW spoke with pt's dtr via phone. Pt's dtr is agreeable with discharge. Pt's dtr is at home and pt can discharge via [facility]. Pt is bedbound and unable to ambulate. Pt's dtr requests 1830 picker tender time. SW arranged ambulance via [facility] for 1830. SW updated nursing. Contact info for [facility] placed in pt's discharge summary. Info for first appt with Dr Beauchamp's TUBE TESTER, [place], is scheduled for 09/26 at 1015, also placed in pt's discharge summary. No additional SW needs identified at this time, but is available to assist should needs arise.
[2018-09-20 17:45] VITALS: BP 151/70
[2018-09-20 19:10] VITALS: BP 153/73
--- NOTE | 2018-09-26 19:26 | HC ---
[facility] [place] [address] [address] CONSULTATION Name: ANGELIQUE BULLOCK Room #: 349-I [facility] IN M.R.#: [id number] Admission: 09/13/18 ������������������ Attend Phys: Robert Prater MD Discharge: 09/20/18 ������������������ Date of : 48 Report #: [id number] THIS REPORT FOR: //name// CC: FAM unknown Robert Prater REASON FOR CONSULTATION: Acute kidney injury. REASON FOR PRESENTATION: Low oxygen saturation per her family members. HISTORY OF PRESENT ILLNESS: A 68-year-old who was recently discharged from the hospital on 09/12/2018 after being found to have urinary tract infection. She was sent home on Augmentin. However, family was never able to get that filled. I do not see any urine cultures in 2019. She is known to have recurrent urinary tract infection in the past. She is also known to have obstructive uropathy and had seen Urology in the past. Family noticed that the patient has been somewhat lethargic, had low level of oxygen saturation. No reported nausea or vomiting. No reported chest pain, but the patient has shortness of breath on her presentation and was found to have an elevated temperature with reduced O2 sat. She was also on the hypotensive side. The patient had a very complicated past medical history when it comes to her kidney issues. She is known to have hypertension and diabetes mellitus. She was discharged back in June with a creatinine value of around 1.4. She had episodes of acute kidney injury related to obstructive uropathy and recurrent urinary tract infection. She previously had issues with sacral decubitus and required debridement. She also has had a PEG tube and a tracheostomy. She has chronic lymphedema. When the patient presented yesterday, her creatinine was elevated at 4.5. She was initiated on pressors. I am being consulted to manage her acute kidney injury. PAST MEDICAL HISTORY: Extensive and includes the followin. Hypertension. 2. Anemia. 3. Lymphedema. 4. Recurrent urinary tract infection. 5. Bilateral hydronephrosis in the past. 6. Status post PEG. 7. Status post tracheostomy. 8. CKD. 9. Debility and immobility for the last 3 years. 10. Hysterectomy. 11. Dislocated right total knee arthroplasty. MEDICATIONS: 1. Furosemide. 2. Potassium. 3. Recently prescribed Augmentin. [address] [address] CONSULTATION Name: ANGELIQUE BULLOCK Room #: 349-I [facility] IN M.R.#: [id number] Admission: 09/13/18 ������������������ Attend Phys: Robert Prater MD Discharge: 09/20/18 ������������������ Date of : 48 Report #: [id number] ALLERGIES: None. REVIEW OF SYSTEMS: GENERAL: Significant for weakness and fever. No chills. CARDIOVASCULAR: Significant for shortness of breath. No chest pain. Significant for edema. PULMONARY: As per the history of present illness. GASTROINTESTINAL: No nausea or vomiting. GENITOURINARY: No frequency, no urgency. MUSCULOSKELETAL: Immobile for the last 3 years. Chronic lymphedema. NEUROLOGICAL: No headache, no dizziness. PHYSICAL EXAMINATION: GENERAL: She was on CPAP. VITAL SIGNS: Temperature was 36.3, blood pressure was 84/45. HEAD AND NECK: No jugular venous distention. CHEST: Bilateral crackles. CARDIOVASCULAR: Regular, with no rub. ABDOMEN: Soft, nontender. LOWER EXTREMITIES: Chronic lymphedema present. LABORATORY DATA: Reviewed. White blood cell count is 5.6, eosinophils 8.3. Blood gas pH of 7.2, pCO2 of 61. Chemistry: Sodium 139, potassium 3.6, BUN 47, and creatinine is 4.5. Chest x-ray: Pulmonary edema is present. ASSESSMENT, IMPRESSION AND PLAN: 1. Acute kidney injury. 2. Respiratory failure. 3. Eosinophilia. 4. Elevated troponin. 5. Pulmonary edema. 6. Hypotension. 7. Recurrent urinary tract infection. 8. Recurrent hydronephrosis and obstructive uropathy. 9. Very concerning clinical presentation in a patient with recurrent hydronephrosis and urinary tract infection. 10. Sent for a stat CT abdomen and pelvis. 11. She is on the volume overload side and will try to manage her hypotension with pressors alone. 12. She is not making any urine and will try Lasix. 13. Appropriate cultures were obtained and she was initiated on septic workup. 14. Avoid IV fluid. 15. Avoid nephrotoxins. 16. Concerning eosinophilia in the setting of acute kidney failure, might [address] [address] CONSULTATION Name: ANGELIQUE BULLOCK Room #: 349-I [facility] IN M.R.#: [id number] Admission: 09/13/18 ������������������ Attend Phys: Robert Prater MD Discharge: 09/20/18 ������������������ Date of : 48 Report #: [id number] suggest an acute interstitial nephritis of unclear reasons, we will follow. 17. Obtain urinary studies. 18. Hold any blood pressure medication at this point. 19. Hold potassium. 20. We will review the CT and decide about further actions. ��������������������������������������������� <ELECTRONICALLY SIGNED> ���������������������������������������� By: Bren Casey MD ��������������������������������������������� 09/26/18 [id number] Bren Casey MD /nt
== END 2018-09-20 20:20 | disposition home health service (06) | DRG 871 ==
LOC: ER 12:24 → 3W 16:53 → ICU 16:53 → EROBS 16:53 → ICU 18:07 → 3W 09-17 21:40
PROVIDERS: Hospitalist; Physician Assistant; ADMIT Internal Medicine
PROC: B5181ZA Fluoroscopy of Superior Vena Cava using Low Osmolar Contrast, Guidance (ICD-10-PCS; principal; 2018-09-14)
PROC: 5A09357 Assistance with Respiratory Ventilation, Less than 24 Consecutive Hours, Continuous Positive Airway Pressure (ICD-10-PCS; principal; 2018-09-14)
PROC: B548ZZA Ultrasonography of Superior Vena Cava, Guidance (ICD-10-PCS; principal; 2018-09-14)
PROC: 02HV33Z Insertion of Infusion Device into Superior Vena Cava, Percutaneous Approach (ICD-10-PCS; principal; 2018-09-14)
PROC: 5A09357 Assistance with Respiratory Ventilation, Less than 24 Consecutive Hours, Continuous Positive Airway Pressure (ICD-10-PCS; 2018-09-15)
PROC: 0HBRXZZ Excision of Toe Nail, External Approach (ICD-10-PCS; 2018-09-17)
DX: A41.9 Sepsis, unspecified organism (principal); I21.4 Non-ST elevation (NSTEMI) myocardial infarction; J96.02 Acute respiratory failure with hypercapnia; R65.21 Severe sepsis with septic shock; E43 Unspecified severe protein-calorie malnutrition; J96.01 Acute respiratory failure with hypoxia; N17.9 Acute kidney failure, unspecified; N12 Tubulo-interstitial nephritis, not specified as acute or chronic; N13.30 Unspecified hydronephrosis; I50.30 Unspecified diastolic (congestive) heart failure; K80.10 Calculus of gallbladder with chronic cholecystitis without obstruction; I13.0 Hypertensive heart and chronic kidney disease with heart failure and stage 1 through stage 4 chronic kidney disease, or unspecified chronic kidney disease; E78.5 Hyperlipidemia, unspecified; K21.9 Gastro-esophageal reflux disease without esophagitis; N18.3 Chronic kidney disease, stage 3 (moderate); E11.22 Type 2 diabetes mellitus with diabetic chronic kidney disease; D72.1 Eosinophilia; Z96.651 Presence of right artificial knee joint; B35.1 Tinea unguium; D63.8 Anemia in other chronic diseases classified elsewhere; E07.81 Sick-euthyroid syndrome; I95.9 Hypotension, unspecified; Z90.710 Acquired absence of both cervix and uterus; Z93.1 Gastrostomy status; Z68.36 Body mass index [BMI] 36.0-36.9, adult; Z93.0 Tracheostomy status; Z86.718 Personal history of other venous thrombosis and embolism
CPT/HCPCS: 10078; 10203; 10879

== ENCOUNTER 2018-10-12 09:36 | Inpatient (IN) | payer OTHER ==
[~2018-10-12] VITALS: Ht 165.1 cm; Wt 97.4 kg
[2018-10-12 09:36] VITALS: BP 110/69
[2018-10-12 10:03] LABS: BE(vivo) 2.3 mmol/L (-2 to +3); HCO3 28.6 mmol/L (22.0-26.0); PCO2 53.2 mmHg (35.0-45.0); PO2 46.9 mmHg (80.0-100.0); pH 7.348 (7.360-7.450)
[2018-10-12 10:55] LABS: ANION GAP 8 mmol/L (7-16); BUN 18 mg/dL (7-18); CALCIUM 8.3 mg/dL (8.5-10.1); CHLORIDE 96 mmol/L (98-107); CO2 28 mmol/L (21-32); CREATININE 2.2 mg/dL (0.6-1.0); GLUCOSE 71 mg/dL (74-106); POTASSIUM 3.3 mmol/L (3.5-5.1); SODIUM 132 mmol/L (136-145)
[2018-10-12 10:57] LABS: APTT 30.3 Seconds (24.5-32.8); INR 1.1
[2018-10-12 11:05] LABS: ALBUMIN 2.5 g/dL (3.4-5.0); MAGNESIUM 1.7 mg/dL (1.8-2.4); SGOT 57 U/L (15-37); SGPT 13 U/L (30-65); TOTAL BILIRUBIN 0.5 mg/dL (<0.1-1.0); TOTAL PROTEIN 7.4 g/dL (6.4-8.2); TROPONIN-I <0.06 ng/mL (<0.06)
[2018-10-12 11:15] LABS: HEMOGLOBIN 8.8 gm/dL (12.0-15.0); MCH 28.5 pg (26.0-34.0); MCHC 33.8 g/dL (28.0-37.0); MCV 84.2 fL (80.0-100.0); PLATELET COUNT 147 thou/uL (150-400); RBC 3.09 mil/uL (4.20-5.00); WBC 6.4 thou/uL (4.0-11.0)
[2018-10-12 12:05] LABS: ABSOLUTE NEUTROPHILS 4.4 thou/uL (1.4-8.2); ANISOCYTOSIS 1+
[2018-10-12 13:59] LABS: FOLIC ACID 8.5 ng/mL (8.6-58.9); TSH 0.985 uIU/mL (0.358-3.740)
[2018-10-12 14:15] VITALS: BP 114/57
--- NOTE | 2018-10-12 15:13 | EKG ---
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 : 1950 Requested By: Kennedy Olivarez Order Number: [id number] MD: Romel Michaud Measurements Intervals [place] Rate: 73 P: OR: QRS: 56 QRSD: 105 T: QT: 574 QTc: 633 Interpretive Statements Sinus rhythm with first-degree AV block Nonspecific ST and T wave abnormality Prolonged QT interval Baseline wander in lead(s) V6 Compared to ECG 09/13/2018 12:32:[address] and T wave abnormality is less pronounced Electronically Signed On 10-12-2018 15:13:27 CDT by Romel Michaud [email or web address] <ELECTRONICALLY SIGNED> By: Romel Michaud MD, [facility] 10/12/18 1513 [id number] [id number] Romel Michaud MD, [facility] /EPI
[2018-10-12 15:25] VITALS: BP 114/57
[2018-10-12 16:01] VITALS: BP 135/58
--- NOTE | 2018-10-12 18:00 | NUR ---
PT ARRIVED FROM ED AT APPROX 1630. ASSESSMENT CHARTED. PT ARRIVED WITH HANDLEY CATHETER AND RT JUGULAR DIALYSIS ACCESS WITH MEDS INFUSING. IV TEAM CALLED FOR ASSESSMENT OF ACCESS. VSS. ADMISSION COMPLETED, TELE PUT ON, ADMISSION STRIP PRINTED AND CHARTED. TELE SHEET EXPLAINED TO PT, COMMUNICATES UNDERSTANDING. BLOOD SUGAR STABLE, PT CURRENTLY EATING DINNER. DENIES NEEDS AT THIS TIME. WILL CONTINUE TO MONITOR AND FOLLOW POC.
--- NOTE | 2018-10-12 18:31 | NUR ---
ASSUMED CARE OF PT UPON ADMISSION AT APPROX 1430. PT CONTINUES A&O. VSS. WILL CONTINUE TO MONITOR AND FOLLOW POC.
[2018-10-12 20:26] VITALS: BP 126/71
[2018-10-13 00:17] VITALS: BP 153/72
--- NOTE | 2018-10-13 04:14 | NUR ---
ASSUMED CARE FROM DAY SHIFT PT VERY DROWSY PT PLACED ON BIPAP SAT 100% AND PT TOLERATING WELL AFTER SEVERAL HOURS ON BIPAP PT AWAKEN AND APPEARS MORE ALET AND ORIENTED PT THEN PLACED ON NC SAT REMAIN 100% SNACK REQUESTED AND GIVEN, CARDIAC MONTIOR SHOWS NSR VSS, RESTING WELL THROUGHOUT HOURLY ROUNDS, WILL REPORT CHANGES AND ABNORMAL FINDINGS
[2018-10-13 04:56] VITALS: BP 122/63
[2018-10-13 05:34] LABS: ABSOLUTE NEUTROPHILS 4.3 thou/uL (1.4-8.2); BASOPHILS 0.4 % (0.0-2.0); HEMATOCRIT 28.8 % (37.0-47.0); HEMOGLOBIN 9.5 gm/dL (12.0-15.0); LYMPHOCYTES 14.6 % (24.0-44.0); MCH 27.9 pg (26.0-34.0); MCHC 32.9 g/dL (28.0-37.0); MONOCYTES 1.9 % (1.0-8.0); PLATELET COUNT 141 thou/uL (150-400); POLYS 83.1 % (36.0-66.0); RBC 3.39 mil/uL (4.20-5.00); RDW 16.6 % (10.5-14.5); WBC 5.1 thou/uL (4.0-11.0)
[2018-10-13 06:03] LABS: ANION GAP 5 mmol/L (7-16); BUN 22 mg/dL (7-18); CALCIUM 8.3 mg/dL (8.5-10.1); CHLORIDE 98 mmol/L (98-107); CO2 30 mmol/L (21-32); CREATININE 2.3 mg/dL (0.6-1.0); GLUCOSE 145 mg/dL (74-106); MAGNESIUM 2.5 mg/dL (1.8-2.4); POTASSIUM 3.8 mmol/L (3.5-5.1); SODIUM 133 mmol/L (136-145); TROPONIN-I <0.06 ng/mL (<0.06)
[2018-10-13 08:55] VITALS: BP 131/73
[2018-10-13 11:43] VITALS: BP 158/88
[2018-10-13 15:44] LABS: URINE BILIRUBIN NEGATIVE (Negative); URINE BLOOD 2+ (Negative); URINE COLOR YELLOW; URINE GLUCOSE-RANDOM* NEGATIVE (Negative); URINE KETONES NEGATIVE (Negative); URINE NITRITE-REFLEX NEGATIVE (Negative); URINE PROTEIN (DIPSTICK) TRACE (Negative); URINE UROBILINOGEN 0.2 E.U./dl (0.2-1.0)
[2018-10-13 15:50] LABS: URINE LEUKOCYTES-REFLEX 1+ (Negative)
[2018-10-13 15:51] LABS: URINE CLARITY SL HAZY
[2018-10-13 15:58] LABS: BACTERIA-REFLEX >30 Many /HPF (None Seen); SQUAMOUS 4-10 Moderate /LPF (0-3); URINE RBC 3-10 Few /HPF (0-2)
[2018-10-13 15:59] LABS: FINE GRANULAR CASTS 0-3 Few /LPF (None Seen); YEAST-REFLEX Present (None Seen)
[2018-10-13 16:06] LABS: CRYSTALS None Seen /LPF (None Seen)
[2018-10-13 16:44] VITALS: BP 131/63
--- NOTE | 2018-10-13 17:13 | NUR ---
ASSESSMENT CHARTED - MEDS PER MAR - PT GIVEN LASIX 80 MGS IV ORDERED THIS AM - STARTED ON TOPROLOL. ALFONSO DIET AND FLUIDS WITH NO CO'S OF NAUSEA. - PATIENT NOT HUNGRY AT LUNCH TIME LITTLE LUNCH EATEN. PT HAS BEEN SLEEPING OFF AND ON THROUGHOUT THE SHIFT - INTERDRY PLACED TO REDDENED MOIST AREAS UNDER BREASTS BILAT. ACCUCCHECKS CHARTED COVERED PER SSI PRN. NO CO'S AT THE PRESENT TIME.
[2018-10-13 19:53] VITALS: BP 150/89
[2018-10-14 03:26] VITALS: BP 139/74
[2018-10-14 04:48] LABS: ALBUMIN 2.6 g/dL (3.4-5.0); CALCIUM 8.1 mg/dL (8.5-10.1); CREATININE 2.2 mg/dL (0.6-1.0); MAGNESIUM 2.4 mg/dL (1.8-2.4); POTASSIUM 4.1 mmol/L (3.5-5.1)
[2018-10-14 04:53] LABS: HEMATOCRIT 26.3 % (37.0-47.0); HEMOGLOBIN 8.5 gm/dL (12.0-15.0); MCH 27.6 pg (26.0-34.0); MCHC 32.4 g/dL (28.0-37.0); MCV 84.9 fL (80.0-100.0); RBC 3.1 mil/uL (4.20-5.00); RDW 16.5 % (10.5-14.5); WBC 11.6 thou/uL (4.0-11.0)
--- NOTE | 2018-10-14 05:09 | NUR ---
ASSUMED CARE OF PT AT 1900HRS. PT IS ALERT TO SELF AND PLACE. FALL PRECAUTION IN PLACE. ASSESSMENTS CHARTED. EMMANUELLE IS PATIENT. PT REPORTED SOME BACK PAIN AND WAS TREATED WITH PRN MAIN MEDS. PT TOLERATIONG BIPAP AND NC. PT WAS ABLE TO SLEEP PART OF THE SHIFT. NO S/S OF ACUTE DISTRESS. WILL CONTINUE TO MONITOR.
[2018-10-14 07:38] VITALS: BP 135/70
[2018-10-14 11:16] VITALS: BP 167/80
[2018-10-14 16:17] VITALS: BP 117/82
--- NOTE | 2018-10-14 18:26 | NUR ---
ASSESSMENT CHARTED - MEDS PER APR - NO CO'S OF NAUSEA - GIVEN MS FOR PAIN THIS AM WITH GOOD RELIEF AND NO FURTHER COMPALINTS - ALFONSO DIET AND FLUIDS. ACCUCHECKS CHARTED - PATIENT HAS BEEN SLEEPING ALOT OF THE DAY -EASSILY AWAKEN - TURNED FOR COMFORT PRESURE RELIEF - NO CO'S AT THE PRESENT TIME.
[2018-10-14 19:40] VITALS: BP 144/74
[2018-10-14 19:46] VITALS: BP 141/71
[2018-10-15 04:47] VITALS: BP 145/68
[2018-10-15 05:16] LABS: ALBUMIN 2.8 g/dL (3.4-5.0); CALCIUM 8.4 mg/dL (8.5-10.1); CREATININE 2.3 mg/dL (0.6-1.0); PHOSPHORUS 3.1 mg/dL (2.5-4.9); POTASSIUM 3.8 mmol/L (3.5-5.1)
--- NOTE | 2018-10-15 06:00 | NUR ---
PT A&O X1 ORIENTED TO SELF ONLY. UNABLE TO ANSWER SOME BASIC QUESTIONS. DENIES PAIN. Q2H TURN/REPO. DIALYZING WITH LASIX HANDLEY CATHETER IN PLACE. INCONT OF BOWEL. ACHS. CONTINUES ON 2L O2 PER NC BIPAP NOC HAD DIFFICULTIES KEEPING IT ON NOC. PT NON AMBULATORY.
--- NOTE | 2018-10-15 06:48 | HC ---
[facility] [place] [address] [place] [address] CONSULTATION Name: ANGELIQUE BULLOCK Room #: 217-P ADM IN M.R.#: [id number] Admission: 10/12/18 Attend Phys: Ajay Pinto MD Discharge: Date of : 48 Report #: [id number] THIS REPORT FOR: //name// CC: Ajay HOLLIS unknown DATE OF SERVICE: 10/13/2018 NEPHROLOGY CONSULTATION REASON FOR CONSULTATION: Elevated creatinine and volume overload with pulmonary edema. HISTORY OF PRESENT ILLNESS: This is a 68-year-old female who is very debilitated. She presented to the Emergency Room last night with apparent hypoxemia. She was very weak and apparently had mental status changes at home. All her labs will be repeated below. She was hypoxemic on presentation and had pulmonary edema. She was given some intravenous Lasix and she has actually diuresed rather nicely with 1.9 liters urine output over 1 shift, although it looks like she has probably had more than that. Her breathing was improved. She was put on BiPAP overnight, but is now on oxygen per nasal cannula. From a renal standpoint, the patient has longstanding chronic kidney disease. She was just in the hospital here during the late August and up to 09/20. She was seen by Dr. Casey of our Nephrology service at that time. She presented with acute kidney injury at that time, and she actually had creatinine levels up over 4. The thought was that she would need dialysis, so a dialysis catheter was placed in the right internal jugular vein. It was never used. Her discharge creatinine was 3.4. She tells me she has been passing a moderate amount of urine. She has some chronic lower extremity lymphedema. She has also had some upper extremity edema. She cannot tell me much about what else has been going on at home. She says she has a home health nurse coming in. She does not know what her medications are. She has been nonambulatory for years and gets around occasionally in a wheelchair. She has had multiple prior urinary tract infections, hydronephrosis, acute kidney injury episodes. She also has worsening weakness. In addition, she has type 2 diabetes and her chronic kidney disease as noted above. She has obstructive sleep apnea, previous intubations and mechanical ventilation. She has had a previous hysterectomy, right total knee replacement. She has chronic lymphedema. MEDICATIONS: As listed from the Emergency Room include furosemide 20 mg once daily, potassium 10 mEq daily and tramadol. The patient cannot tell me what medication she really takes. [facility] [address] [place] [address] CONSULTATION Name: ANGELIQUE BULLOCK Room #: 217-P [facility] IN ..#: [id number] Admission: 10/12/18 Attend Phys: Ajay Pinto MD Discharge: Date of : 48 Report #: [id number] ALLERGIES: No known medical allergies. FAMILY HISTORY: Noncontributory. SOCIAL HISTORY: She is listed as being . She lives in [place], [place]. She is retired. REVIEW OF SYSTEMS: She cannot tell me much. It sounds like she has been eating. She is unaware of what medications she takes. She cannot tell me about dyspnea, cough, chest pain or other symptoms at home. She cannot even remember that she was on the BiPAP last night. She is unaware of how much urine she is passing. She remains immobile. PHYSICAL EXAMINATION: GENERAL: Chronically ill-appearing female. VITAL SIGNS: Blood pressure 158/88, heart rate 64, temperature 36.9 degrees centigrade, respiratory rate 18, oxygen saturation 100%. HEENT: Shows pupils are equal and reactive. Sclerae nonicteric. She is no longer on the BiPAP. NECK: Neck veins look full. CHEST: Shows reduced excursion bilaterally. There are few basilar rales. No wheezes or rhonchi at this time. HEART: Regular rate and rhythm. ABDOMEN: Has active bowel sounds, soft, nontender. EXTREMITIES: Show some brawny lower extremity edema changes, although the actual amount at this time is closer to 2+ than a greater number. She also has 1+ thigh edema. IMAGING STUDIES: Chest x-ray shows changes consistent with pulmonary edema. LABORATORY DATA: Sodium 133, potassium 3.8, chloride 98, bicarbonate 30, BUN 22, creatinine 2.3, calcium 8.3, magnesium 2.5, total protein 7.4, albumin 2.5. INR 1.1. White count 5.1, hemoglobin 9.5, hematocrit 28.8 and platelets 141,000. Differential on the white count, 83 neutrophils, 15 lymphs, 2 monos. Blood gas on admission, pH 7.34, pCO2 of 53.2 and pO2 of 46.9. Urinalysis, not done. ASSESSMENT: 1. Pulmonary edema. She required BiPAP and IV furosemide. She has actually diuresed somewhat and then lungs are improved, although she still has a way to go. We will keep her on her b.i.d. IV furosemide. 2. Chronic kidney disease. She has been highly labile in this regard. Creatinine is actually significantly better than when she was last in the hospital a few weeks ago. There was concern of needing to start dialysis at that point. If it looks like she is over that issue, we will get rid of that tunneled dialysis catheter, but in the meantime, we will keep it in place. [facility] [place] [address] CONSULTATION Name: ANGELIQUE BULLOCK Room #: 217-P ADM IN M.R.#: [id number] Admission: 10/12/18 Attend Phys: Ajay Pinto MD Discharge: Date of : 48 Report #: [id number] 3. Massive volume overload with chronic lower extremity lymphedema, but now worsening peripheral edema as well as pulmonary edema. She is on IV furosemide. We will continue that medication. 4. Recurring urinary tract infections. We will repeat her UA. 5. History of hydronephrosis. As noted above, creatinine level is actually better. 6. Type 2 diabetes mellitus. PLAN: 1. I will keep her on the IV diuretics. 2. Check urine studies, including a UA and C and S. 3. Followup labs. 4. Further determination as far as the dialysis catheter, disposition and medication changes, pending those initial evaluations. <ELECTRONICALLY SIGNED> By: Liu David MD 10/15/18 0648 [id number] Liu David MD /nt
[2018-10-15 08:00] VITALS: BP 138/66
[2018-10-15 12:10] VITALS: BP 132/53
--- NOTE | 2018-10-15 15:15 | NUR ---
met with patient who was very groggy. Patient admits with CHF, recent dc Aug from [facility]. Patient dc home with [facility]. Sp with dtr who reports she was just admitted to [facility]. She reports patient resides at home with dtr. She reports she does not have a CPAP, BIPAP or oxygen at home. She requests to rec these for patient. reviewed will check sat/ex at dc for home oxygen. To rec home CPAP/BIPAP patient needs outpatient sleep study. patient has walker/wc at home but mostly bedbound and dc home with [facility]. Discussed skilled care with dtr. She reports she is "saving" that time for when she has her knee done. She reports Dr Beauchamp their new PCP is suppose to s/o for knee sx. Discussed patient seen by hospitalist. New PCP within last month. Discussed with dtr possible referral to [facility] were patient has rec skilled in past to determine if medicare skilled days avail. Dtr in agreement. Message to Dr Beauchamp that patient is hospitalized.
--- NOTE | 2018-10-15 15:56 | NUR ---
FAXED REFERRAL TO [facility] SPOKE WITH NAY IN ADM SHE RECEIVED REFERRAL AND IS REVIEWING AND WILL LOOK INTO MEDICARE SKILLED DAYS. DCP TO FOLLOW.
--- NOTE | 2018-10-15 16:30 | NUR ---
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 SPOKE WITH YUSRA IN INTAKE AND THEY CAN ACCEPT PT AT DC IF PT DOES NOT GO SKILLED. DCP TO FOLLOW.
[2018-10-15 17:19] VITALS: BP 140/59
--- NOTE | 2018-10-15 17:29 | NUR ---
ASSUMED CARE OF PT AT 0700, PT IS A/O TIMES ONE, NOTED TO BE SLEEPING MOST OF TJHE TIME BUT IS EASILY AROUSED. PT WITH LOW APPETITE TODAY AND HAS BEEN REFUSING TO EAT. PROTEIN SHAKE GIVEN TO PATIENT. VSS AND PT HAS BEE AFIBRILE.
[2018-10-15 19:46] VITALS: BP 111/52
--- NOTE | 2018-10-16 03:37 | NUR ---
patient aox1 confused and forgetful.patient turned q 2 hours. patient on 02 nc 2l. patient on bi pap at night. patient refused fluids or snacks x3 attempt. no s/s of shortness of air or distress this shift.patient denied pain or discomfort. patient in bed asleep at this time breathing regular and unlaboured.
[2018-10-16 04:56] LABS: ALBUMIN 2.4 g/dL (3.4-5.0); CALCIUM 8.4 mg/dL (8.5-10.1); CREATININE 2.1 mg/dL (0.6-1.0); POTASSIUM 4.2 mmol/L (3.5-5.1)
[2018-10-16 05:05] VITALS: BP 120/69
[2018-10-16 05:50] LABS: PHOSPHORUS 2.1 mg/dL (2.5-4.9)
[2018-10-16 07:50] VITALS: BP 159/55
[2018-10-16 11:59] VITALS: BP 153/69
--- NOTE | 2018-10-16 13:18 | NUR ---
SPOKE WITH DTR AND REPORTED PER [facility] 20 SKILLED DAYS LEFT. [facility] WITH NO BED AVAIL THIS WEEK. PLACED HER ON WAIT LIST AND SENT RE[facility]ERRAL [facility] FOR [facility].
--- NOTE | 2018-10-16 14:22 | NUR ---
FAXED REFERRAL TO [facility] LEFT MSG WITH MER IN ADM THAT PT POSS DC LATER IN WEEK. DCP TO FOLLOW.
--- NOTE | 2018-10-16 15:54 | NUR ---
ASSUMED CARE AT SHIFT CHANGE, ALERT, BUT CONFUSED. Q2 POSITIONED FOR COMFORT PATIENT REFUSED TO TAKE PO MEDS, AND REFUSED TO DRINK OR EAT MD NOTIFIED. DAUGHTER UPDATED ON PATIENT CONDITION WHEN SHE CALLED. SHE REQUESTED TO SPEAK WITH DR YODER AND DR YODER INFORMED. AND WILL CONTINUE WITH POC.
[2018-10-16 16:31] VITALS: BP 138/106
[2018-10-16 19:33] VITALS: BP 149/61
--- NOTE | 2018-10-17 02:57 | NUR ---
ASSESSMENT CHARTED. VSS. ALERT TO SELF, CONFUSED. PT WAS ABLE TO DRINK OJ WITH STRAW 100%. REFUSED FOOD. Q2 TURNS. BIPAP HS. BED BATH CHLORAHEXDINE. BARRIER TO COCCYX, INTRADRY UNDER PANUS AND BREASTS-REDNESS. HANDLEY IN PLACE. WILL CONTINUE TO MONITOR AND WIHT POC.
[2018-10-17 04:16] VITALS: BP 105/77
[2018-10-17 05:07] LABS: MCH 26.8 pg (26.0-34.0); MCHC 32.3 g/dL (28.0-37.0); RBC 3.74 mil/uL (4.20-5.00); RDW 16.8 % (10.5-14.5); WBC 21.4 thou/uL (4.0-11.0)
[2018-10-17 05:21] LABS: ALBUMIN 2.3 g/dL (3.4-5.0); CALCIUM 8.5 mg/dL (8.5-10.1); CREATININE 2.2 mg/dL (0.6-1.0); PHOSPHORUS 1.8 mg/dL (2.5-4.9); POTASSIUM 3.3 mmol/L (3.5-5.1)
[2018-10-17 08:15] VITALS: BP 128/81
[2018-10-17 11:50] VITALS: BP 127/44
--- NOTE | 2018-10-17 12:18 | NUR ---
Referral to [facility] last evening. Left message with admission if can accept.
--- NOTE | 2018-10-17 15:11 | NUR ---
Per [facility] patient has approx 29 days left skilled copay days. Copay is $170.50 a day. [employer] plan is not tie-in insurance plan with medicare. They cover 75% of the $170.50 copay days. [employer] plan is coverage of 60 days per calender benefit period with patient having 29 skilled days and no benefit resume until no hospitalization 60 days concecutive. Updated dtr. [facility] also with only a semipvt room. Left message with [facility] patient is MRSA positive in the nares.
[2018-10-17 16:15] VITALS: BP 97/43
--- NOTE | 2018-10-17 16:15 | NUR ---
PATIENT HANDLEY DC'D PER ORDERS. EXTERNAL CATH IN PLACE TO LOW SUCTION. PATIENT TURNED OFTEN. REMAINS INCONTINENT OF BOWEL. APPETITE IS DECREASED, DIETARY CONSULT PLACED. WILL CONSUME ORANGE JUICE WITH SMALL BITES INTERMITTENTLY. FALL PRECAUTIONS IN PLACE. SPOKE WITH DAUGHTER FOR UPDATE. GAVE EDUCATION ON CONTACT ISOLATION, UTI W/ IV ABX, BREATHING. REPORT GIVEN TO JAI GONZALEZ AT 16:17.
[2018-10-17 20:00] VITALS: BP 109/48
--- NOTE | 2018-10-18 02:45 | NUR ---
ASSESSMENT: PT REMAIN ALERT AND ORIEN TIMES ONE. DOES STATE THAT SHE IS IN THE HOSPITAL BUT DOES NOT CORRECTLY NAME THE DAY OF THE WEEK, THE TIME OF THE YEAR, NOR THE PRESIDENT. PT IS TOLERATING BIPAP TONIGHT. SR WV MONITOR. VSS, AFEBRILE. NO BM. EXTERNAL CATHETER IS WORKING PROPERLY WITH YELLOW URINE OUTPUT. DOES NOT INDICATE THAT SHE HAS PAIN. TURNED EVERY 2 HOURS. PT IS CURRENTLY AWAITING PLACEMENT TO SNU WHEN AVAILABLE. SLOW PROGRESS TOWARDS DC GOALS, WILL CONTINUE TO MONITOR.
[2018-10-18 05:19] VITALS: BP 115/42
[2018-10-18 05:21] LABS: HEMOGLOBIN 9.2 gm/dL (12.0-15.0); MCH 26.5 pg (26.0-34.0); MCHC 31.6 g/dL (28.0-37.0); MCV 83.9 fL (80.0-100.0); PLATELET COUNT 179 thou/uL (150-400); RBC 3.46 mil/uL (4.20-5.00); RDW 16.8 % (10.5-14.5); WBC 22.4 thou/uL (4.0-11.0)
[2018-10-18 05:31] LABS: ALBUMIN 1.9 g/dL (3.4-5.0); CALCIUM 8.3 mg/dL (8.5-10.1); CREATININE 2.2 mg/dL (0.6-1.0); PHOSPHORUS 1.9 mg/dL (2.5-4.9); POTASSIUM 4.2 mmol/L (3.5-5.1)
[2018-10-18 08:11] LABS: ABSOLUTE NEUTROPHILS 17.2 thou/uL (1.4-8.2); METAMYELOCYTES 1 %
[2018-10-18 08:12] LABS: ANISOCYTOSIS 1+; POLYCHROMASIA OCCASIONAL
[2018-10-18 08:23] VITALS: BP 108/49
[2018-10-18 12:00] VITALS: BP 115/52
--- NOTE | 2018-10-18 13:55 | NUR ---
FAXED SCRIPT TO [facility] FOR [facility] SPOKE WITH MER IN ADM SHE RECEIVED SCRIPT. DCP TO FOLLOW.
--- NOTE | 2018-10-18 16:02 | NUR ---
Case discussed with the care team and Yolanda updated at [facility]. Pt has elevation in her white count and ID has been consulted. Yolanda reports they can accept the pt for snf pending ins auth. DC senior media planner has faxed the bipap script. Yolanda to talk with the pt's dtr regarding her copay and ins deductables. Nursing to update her dtr on plan for testing and f/u today. Will reassess for dc to snf tomorrow and update all parties.
[2018-10-18 16:50] VITALS: BP 122/50
--- NOTE | 2018-10-18 17:45 | NUR ---
PATIENT CARE ASSUMED, ASSESSMENT CHARTED, ALERT TO SELF, INCONTINENT OF B&B, WILL CONTINUE TO MONITOR.
[2018-10-18 19:45] VITALS: BP 108/59
[2018-10-19 04:30] VITALS: BP 90/44
[2018-10-19 05:49] LABS: CALCIUM 8.8 mg/dL (8.5-10.1); CREATININE 2.8 mg/dL (0.6-1.0); POTASSIUM 4.1 mmol/L (3.5-5.1)
[2018-10-19 05:57] LABS: HEMATOCRIT 30.1 % (37.0-47.0); HEMOGLOBIN 9.6 gm/dL (12.0-15.0); MCH 26.7 pg (26.0-34.0); MCHC 31.9 g/dL (28.0-37.0); MCV 83.8 fL (80.0-100.0); PLATELET COUNT 197 thou/uL (150-400); RDW 16.6 % (10.5-14.5); WBC 27.1 thou/uL (4.0-11.0)
--- NOTE | 2018-10-19 06:05 | NUR ---
ASSUME CARE 1900. PT LETHARGIC BUT EASILY ARUSABLE. ADEQUATE REST NOTED. VERY POOR TOLERANCE TO ACTIVITY. BP RUNS SOFT WITH MAP IN 50s. POOR APPETITE NOTED. ASSESSMENT CHARTED. PROGRESSING SLOWLY TOWARDS POC. PLAN IS TO CONTINUE DIURESING PT AND MONITOR INFECTION. WILL CONTINUE TO MONITOR AND FOLLOW WIHT POC
[2018-10-19 06:57] LABS: ABSOLUTE NEUTROPHILS 19.8 thou/uL (1.4-8.2); METAMYELOCYTES 1 %
[2018-10-19 06:58] LABS: ANISOCYTOSIS 1+; PLATELET ESTIMATE NORMAL; POIKILOCYTOSIS 1+; POLYCHROMASIA 1+
[2018-10-19 09:05] VITALS: BP 115/45
[2018-10-19 11:46] VITALS: BP 85/52
--- NOTE | 2018-10-19 15:23 | NUR ---
FAXED REFERRAL TO [facility] SPOKE WITH KWABENA AND HE RECEIVED AND NOTIFIED JENNIFER DORAN OUT OF POCKET COST. DCP TO FOLLOW.
--- NOTE | 2018-10-19 17:36 | HC ---
[facility] [place] [address] CONSULTATION Name: ANGELIQUE BULLOCK Room #: 217-P ADM IN M.R.#: [id number] Admission: 10/12/18 Attend Phys: Ajay Pinto MD Discharge: Date of : 48 Report #: [id number] THIS REPORT FOR: //name// CC: Ajay HOLLIS unknown DATE OF SERVICE: 10/18/2018 INFECTIOUS DISEASE CONSULTATION REASON FOR CONSULTATION: I was asked to evaluate concerning leukocytosis. HISTORY OF PRESENT ILLNESS: The patient is a 68-year-old detention resident, who was hospitalized in August with urinary tract infection, septic shock with associated bacteremia. There was also concern for acute cholecystitis. She had antibiotic-associated diarrhea, chronic kidney disease and congestive heart failure. She completed her course of antibiotics and was discharged back to detention September 20. She returns now on 10/12 with congestive heart failure. Renal failure had been about the same with a creatinine of 2.3. She was seen by Cardiology service and Nephrology with improvement. Over the last several days, she has noticed white count increase to 22,000. There has been no fever. Urine culture revealed Pseudomonas aeruginosa. She now has diarrhea. She was started on ceftazidime. She has had loose cough. CT scan showed evidence of a right pulmonary infiltrate. The patient was a poor historian; unable to give any details. REVIEW OF SYSTEMS: The patient unable to assist. She was incontinent of both urine and stool. She has intermittently been on BiPAP. PAST MEDICAL HISTORY: Right total knee arthroplasty, hysterectomy, bilateral lower extremity edema, hypertension, hyperlipidemia, gastroesophageal reflux, diabetes, chronic kidney disease, congestive heart failure, cholelithiasis, recent pyelonephritis. FAMILY HISTORY: Noncontributory. SOCIAL HISTORY: Nonsmoker, no significant alcohol intake. correction resident. PHYSICAL EXAMINATION: VITAL SIGNS: Temperature is 98.2, pulse 68, blood pressure 108/59. SKIN: She had lymphedema of both lower extremities with no active ulcerations or cellulitis. No palpable adenopathy. HEENT: Eyes without scleral icterus. Mouth without mucositis. She was on 2 liters of oxygen per nasal cannula. NECK: Supple, with no thyromegaly or mass. [facility] [address] [place] [address] CONSULTATION Name: ANGELIQUE BULLOCK Room #: 217-P ADM IN M.R.#: [id number] Admission: 10/12/18 Attend Phys: Ajay Pinto MD Discharge: Date of : 48 Report #: [id number] LUNGS: Coarse breath sounds throughout with consolidation in the right posterior base. HEART: Regular, without murmur, gallop or rub. ABDOMEN: Obese, soft, mild tenderness in the lower abdomen. No appreciable masses or hepatosplenomegaly. GENITOURINARY: External genitalia without lesion. RECTAL: Not performed as the patient was incontinent of liquid stool. EXTREMITIES: With edema both lower extremities, venous stasis disease. She had what appears to be dislocation of her right knee; this appeared chronic. LABORATORY STUDIES: CT scan of the chest showed right lower lobe consolidation, cholelithiasis and bladder wall thickening. Hemoglobin 9.2, WBC 22.4, platelet count was 179,000. Differential with 70% segs, 7% bands. Creatinine 2.2. Urinalysis with pyuria, bacteriuria. Urine culture, pansensitive Pseudomonas aeruginosa. IMPRESSION: Increasing leukocytosis in a patient with multisystem disease. Source would include Clostridium difficile colitis, urinary tract infection, right lower lobe healthcare-associated pneumonia, less likely cholecystitis. The patient has growth of Pseudomonas aeruginosa in her urine. Her congestive heart failure is better controlled. RECOMMENDATIONS: We will continue with antibiotic coverage, vancomycin and ceftazidime. Add metronidazole. Check sputum cultures, C. difficile by PCR. Serial CBCs. Follow up chest x-ray. Aspiration precautions. Continue management of renal failure, diabetes and congestive heart failure. <ELECTRONICALLY SIGNED> By: Kennedy Ratliff MD 10/19/18 1736 [id number] Kennedy Ratliff MD /nt
[2018-10-19 18:00] VITALS: BP 113/57
--- NOTE | 2018-10-19 18:25 | NUR ---
Pt with new cdiff+ dx and treatment. ID following and pt on several iv atb. The [facility] updated and they will need clinical update early next week. Dtr not wanting to use her snf days and considering taking her back home with [facility] when stable. BIPAP script faxed to krystle with [facility]. He is getting pricing for rental setup at [facility] as well as coordination of a sleep study. The sleep lab has the orders from her pcp today and can possibly setup the study the same day of dc. Will need to call the sleep lab at [phone] or [phone] to arrange. Her dtr will need to spend the night with her. Pt would needs stretcher transport home. No wkend dc anticipated. Will follow.
[2018-10-19 21:52] VITALS: BP 119/42
[2018-10-20 05:35] LABS: HEMATOCRIT 25.4 % (37.0-47.0); HEMOGLOBIN 8.3 gm/dL (12.0-15.0); MCH 27.3 pg (26.0-34.0); MCHC 32.8 g/dL (28.0-37.0); MCV 83.1 fL (80.0-100.0); PLATELET COUNT 150 thou/uL (150-400); RBC 3.05 mil/uL (4.20-5.00); RDW 16.8 % (10.5-14.5); WBC 19.5 thou/uL (4.0-11.0)
[2018-10-20 05:52] LABS: CALCIUM 8.7 mg/dL (8.5-10.1); CREATININE 3.1 mg/dL (0.6-1.0); POTASSIUM 4.2 mmol/L (3.5-5.1)
[2018-10-20 06:16] VITALS: BP 100/36
[2018-10-20 06:20] LABS: ABSOLUTE NEUTROPHILS 13.8 thou/uL (1.4-8.2); ANISOCYTOSIS 1+; MYELOCYTES 2 %; NUCLEATED RBCS 1 /100WBC
[2018-10-20 07:26] VITALS: BP 99/49
--- NOTE | 2018-10-20 08:11 | NUR ---
ASSUME CAR E1900. PT MORE ALERT AND ORIENTED. ANSWERS QUESTIONS APPROPRIATELY AND COMMUNICATES NEEDS. A/O TO PERSON/PLACE. ASSESSMENT CHARTED. PROGRESSING MODERATELY WITH POC. POSITIVE CDIFF NOTED. PT ON VANC AND FLAGYL STARTED FOR OTHER INFECTION PROCESS WILL CONTINUE TO MONITOR AND FOLLOW WITH POC
[2018-10-20 14:33] VITALS: BP 94/46
--- NOTE | 2018-10-20 17:37 | NUR ---
PT'S B/P'S OVER THIS ADMISSION HAVE BEEN 100/30S, 90/40S. PT A&0X2-3, CONTACTED PHYSICIAN WHO RETURNED CALL IMMEDIATELY. ASKED ABOUT HER BG'S, SHE'S NOW EATING DINNER AND HAS CONSUMED THE JUICE SHE PREFERS; NO FURTHER ORDERS AT THIS TIME
[2018-10-20 17:40] VITALS: BP 109/31
[2018-10-20 20:05] VITALS: BP 103/47
[2018-10-21 05:40] LABS: CALCIUM 8.9 mg/dL (8.5-10.1); CREATININE 3.3 mg/dL (0.6-1.0); POTASSIUM 4.7 mmol/L (3.5-5.1)
[2018-10-21 05:45] VITALS: BP 113/47
--- NOTE | 2018-10-21 06:26 | NUR ---
PT RESTING IN BED. TOLERATING Q2H TURNS. PT SB ON MONITOR. 2L NC AND REFUSED BIPAP LAST HS. PT CONTINUED TO HAVE WATERY STOOLS EVERY TIME YOU TURN HER FROM SIDE TO SIDE TO CLEAN AND IT WAS NEVER ENDING TO GOT ORDER TO PLACE NEW FMS, PT C/O SHE DID NOT WANT THAT IN BUT I EXPLAINED THE DR ORDERED IT FOR HER SO WE CAN PREVENT BREAK DOWN ON HER BOTTOM WHICH COULD BE A SOURCE FOR INFECTION AND WE NEED TO DO ALL WE CAN TO PREVENT THAT. AM LABS REVIEWED.
[2018-10-21 08:16] VITALS: BP 110/58
[2018-10-21 11:54] VITALS: BP 117/63
--- NOTE | 2018-10-21 14:49 | NUR ---
PATIENT CARE ASSUMED, ASSESSMENT CHARTED, PATIENT PULLED OUT FMS. STATES SHE DOESN'T WANT IT, EXPLAINED WATERY STOOLS WILL AFFECT SKIN INTEGRITY, INSERTED FMS. FMS PATENT TO DD. WILL CONTINUE TO MONITOR.
[2018-10-21 19:57] VITALS: BP 136/46
[2018-10-22 02:09] VITALS: BP 129/53
--- NOTE | 2018-10-22 05:37 | NUR ---
PT LYING IN BED. REMAINS INCONTINENT. TURNING FOR COMFORT. DENIES PAIN. RESTING COMFORTABLY. NO NEEDS VOICED. CALL LIGHT WITHIN REACH. WILL CONTINUE TO PROVIDE FREQUENT OBSERVATION.
[2018-10-22 05:55] LABS: HEMATOCRIT 26.3 % (37.0-47.0); HEMOGLOBIN 8.6 gm/dL (12.0-15.0); MCH 27.2 pg (26.0-34.0); MCHC 32.7 g/dL (28.0-37.0); MCV 83.4 fL (80.0-100.0); PLATELET COUNT 157 thou/uL (150-400); RBC 3.15 mil/uL (4.20-5.00); RDW 16.9 % (10.5-14.5); WBC 16.8 thou/uL (4.0-11.0)
--- NOTE | 2018-10-22 06:03 | NUR ---
193--PT REMOVED MITTENS--LESS CONFUSED AND NOT PULLING ON RECTAL TUBE. VERY COOPERATIVE. LEFT MITTENS OFF.
[2018-10-22 07:11] LABS: ABSOLUTE NEUTROPHILS 12.4 thou/uL (1.4-8.2)
[2018-10-22 07:12] LABS: ANISOCYTOSIS 1+
[2018-10-22 08:34] VITALS: BP 126/55
[2018-10-22 12:24] VITALS: BP 142/56
--- NOTE | 2018-10-22 15:58 | NUR ---
PT IS CONFUSED. ALERT TO SELF ONLY. PT PULLED HER RECTAL TUBE OUT. HAD URINE ALL OVER HERSELF AND STOOL EVERYWHERE. IN ISOLATION FOR C-DIFF. PLACED BACK IN MITTENDS. REPLACED FECAL MANAGEMENT SYSTEM AND PLACED A 16 GAMBIAN HANDLEY CATH IN PT. 02 AT 2 LITERS. LUNGS ARE COARSE . NSR ON THE MONITOR. ACCU CHECKS. PT HAS A TENDANCY TO RUN A LOW BLOOD SUGAR. DENIES ANY PAIN AT THIS TIME. WILL CONTINUE TO MONITOR AND ASSESS PER NURSING
[2018-10-22 16:41] VITALS: BP 108/74
[2018-10-22 19:08] VITALS: BP 128/63
[2018-10-23 03:48] VITALS: BP 111/53
--- NOTE | 2018-10-23 04:08 | NUR ---
ASSUMED PT CARE AT 1900. PT A/O TO SELF AND PLACE, VITAL SIGNS STABLE, ASSESSMENT CHARTED. PT PROJECTILE VOMITED AT SHIFT CHANGE AFTER WHICH SHE SOUNDED WET/INCREASED COARSENESS UPON AUSCULTATION. CHEST XRAY ORDERED. REFER TO CHART FOR RESULTS. NO COMPLAINTS OF PAIN. NO COMPLAINTS OF NAUSEA AND NO EPISODES OF VOMITING. Q2 TURNS, CLOSE TO NURSING STATION. CONTACT PRECAUTIONS MAINTAINED. RESTED WELL THROUGH THE NIGHT. PROGRESSING TOWARD PLAN OF CARE.
[2018-10-23 04:57] LABS: CALCIUM 8.8 mg/dL (8.5-10.1); CREATININE 3.1 mg/dL (0.6-1.0); POTASSIUM 5.1 mmol/L (3.5-5.1)
[2018-10-23 05:31] LABS: ABSOLUTE NEUTROPHILS 10.4 thou/uL (1.4-8.2); BASOPHILS 0.6 % (0.0-2.0); HEMATOCRIT 25.1 % (37.0-47.0); HEMOGLOBIN 8.1 gm/dL (12.0-15.0); LYMPHOCYTES 10.8 % (24.0-44.0); MCH 27.1 pg (26.0-34.0); MCHC 32.5 g/dL (28.0-37.0); MCV 83.4 fL (80.0-100.0); MONOCYTES 9.2 % (1.0-8.0); PLATELET COUNT 161 thou/uL (150-400); POLYS 71.4 % (36.0-66.0); RDW 17.3 % (10.5-14.5); WBC 14.6 thou/uL (4.0-11.0)
[2018-10-23 07:56] VITALS: BP 111/56
[2018-10-23 11:19] VITALS: BP 117/67
--- NOTE | 2018-10-23 13:33 | NUR ---
Nutrition Follow Up: Following for oral intake update. Continues on heart healthy diet, requiring mechanically altered/chopped. Intakes range 20-75% over the last 4-5 days. Averaging 40% of meals 10/18-10/21. Also receiving Ensure Enlive supplements TID. These add 1050 kcals, 60 g protein extra (in addition to meal kcals). Pt consumed 100% of all 3 supplements 10/18, 10/19 and 40-60% of all 3 on 10/21. Although meal intakes low-fair, with supplements pt likely meeting a good portion of nutrition needs. Sound asleep at attempted visit. In isolation for c-diff. Pt remains confused often and per nsg notes mainly alert to self only or self/place. Has rectal tube for loose stools. Given confusion and sleeping most of day, unlikely to learn of any new nutrition interventions to help this date. With ongoing high calorie supplement intake will change to low nutrition risk as supplements meet ~70% nutrition needs alone.
--- NOTE | 2018-10-23 15:21 | NUR ---
met with patient who was groggy and shrugged shoulders regarding home today. Tenative plan for home today. SP with dtr who reports she has cardiology apt later today. She reports she prefers dc and sleep lab then home. Dtr attempting to achieve rec BIPAP for home. Phys called and reports tenative plan for dc home tomorrow not today due to labs. Updated dtr. Sleep lab to determine if can accomdate tomorrow dc. Sat/ex ordered to determine need for oxygen at home. dc urban planner to fax updates to [facility] for dc tomorrow.
--- NOTE | 2018-10-23 15:45 | NUR ---
FAXED CLINICAL UPDATE TO [facility] SPOKE WITH BECCA IN INTAKE SHE RECEIVED UPDATE AND CAN ACCEPT PT AT [facility]. THEY WILL START VISITS ON WEDNESDAY 10/25 IF PT DISCHARGES TOMORROW AND WILL NOTIFY PT TIME OF VISITS. DCP TO FOLLOW.
[2018-10-23 17:18] VITALS: BP 134/73
--- NOTE | 2018-10-23 18:36 | NUR ---
ASSUMED CARE OF PT AT APPROX 0700. PT IS ALERT AND ORIENTED TO SELF AND PLACE. FORGETFUL AT TIMES. DENIES PAIN AND SOA AND ABLE TO MAINTAIN 02 SAT >90 ON NC. PT REFUSING CARE AT TIMES INCLUDING TURNS. PT WILL NOT EAT OR EVEN DRINK SUPPLEMENTS. ASSESSMENT CHARTED. PT NOT MAKING GREAT PROGRESS TOWARDS DC GOALS. WILL CONTINUE TO MONITOR.
[2018-10-23 21:40] VITALS: BP 155/62
[2018-10-24 01:13] LABS: HEMATOCRIT 26.8 % (37.0-47.0); HEMOGLOBIN 8.6 gm/dL (12.0-15.0); MCH 26.8 pg (26.0-34.0); MCHC 32.2 g/dL (28.0-37.0); MCV 83.3 fL (80.0-100.0); RBC 3.22 mil/uL (4.20-5.00); RDW 17.3 % (10.5-14.5); WBC 13.6 thou/uL (4.0-11.0)
[2018-10-24 01:21] LABS: CALCIUM 8.6 mg/dL (8.5-10.1); MAGNESIUM 2.2 mg/dL (1.8-2.4)
[2018-10-24 01:22] VITALS: BP 99/59
[2018-10-24 01:22] LABS: POTASSIUM 5.6 mmol/L (3.5-5.1)
[2018-10-24 03:44] VITALS: BP 101/73
--- NOTE | 2018-10-24 05:10 | NUR ---
RECEIVED PT'S CARE AT 1940; PT. ON BED; RESTING WITH EYES CLOSED; DURING ASSESSMENT ALERT TO PERSON; HS MEDICATION GIVEN; BASED ON GLUCOMETER BS ON 65; REFUSED ORANGE JUICE; 30 MIN LATER BS 63; PRN IV MEDICATION GIVEN; RE-ASSESSMENT SHOWED 65; TRIED WITH ANOTHER GLUCOMETER; 59; GAME MODERATOR NOTIFIED; LABS WITHDRAW AROUND MIDNIGHT; GLUCOSE 83; POTASSIUM 5.5; GAME MODERATOR NOTIFIED; ORDERS RECEIVED; PT. ABLE TO DRINK HALF OF MEDICATION; WILL TRY HALF OF DOSE LATER WITH MORNING MEDICATIONS; TURNED FROM SIDE TO SIDE; MONITORING; SYNUS [place]; NO C/O SOB; NO C/O DIZZINESS; C-PAP APPLIED DURING THE NIGHT; ABLE TO REST WITH EYES CLOSED; MONITORING; ASSESSMENT CHARGED; FOLLOWING POC; WILL PASS ON REPORT.
[2018-10-24 08:00] VITALS: BP 96/53
[2018-10-24 11:54] VITALS: BP 115/74
--- NOTE | 2018-10-24 12:13 | NUR ---
Patient to not dc today. SP with Keshia in sleep lab. Goal for patient to dc from hospital and transition to sleep lab as soon as able for out patient sleep study. Keshia with no availability in sleep lab today. Patient did not require home oxygen per sat/ex testing from respitory. Patient may need home BIPAP although has not been using since 10/20. [email or web address] to assist dtr with coordination of outpatient sleep lab. Plan home with [facility] at ca. [facility] accepting of patient at [facility].
[2018-10-24 16:00] VITALS: BP 94/53
--- NOTE | 2018-10-24 16:29 | NUR ---
ASSESSMENT CHARTED. PT ALERT AND ORIENTED TO SELF. DENIED HAVING PAIN OR DISCOMFORT. CONTACT PRECAUTION ENFORCED. FAMILY UPDATED ON PT'S PROGRESS. FALL PRECAUTION IN PLACE. WILL CONTINUE TO MONITOR.
[2018-10-24 19:57] VITALS: BP 121/56
[2018-10-25 05:28] LABS: CALCIUM 8.4 mg/dL (8.5-10.1); CREATININE 2.9 mg/dL (0.6-1.0); MAGNESIUM 2.4 mg/dL (1.8-2.4)
[2018-10-25 05:34] VITALS: BP 115/58
[2018-10-25 05:44] LABS: HEMATOCRIT 24.7 % (37.0-47.0); HEMOGLOBIN 7.9 gm/dL (12.0-15.0); MCH 26.8 pg (26.0-34.0); MCHC 31.8 g/dL (28.0-37.0); MCV 84.4 fL (80.0-100.0); RBC 2.93 mil/uL (4.20-5.00); RDW 17.3 % (10.5-14.5); WBC 10.8 thou/uL (4.0-11.0)
--- NOTE | 2018-10-25 06:52 | NUR ---
RECEIVED PT'S CARE AT 0655; PT. ON BED RESTING WITH EYES CLOSED; RESPOND BACK TO NAME; DURING ASSESSMENT NO C/O PAIN; REFUSED VACOMYCIN AT MIDNIGHT & EARLY ON THE MORNING; PT. ST. "I AM CONNECT WITH THIS (GLUCOSE TAB)"; REFUSED PANTOPRAZOLE; REFUSED TO BE TURNED FROM SIDE TO SIDE; ST. "I WANT TO BE ON MY BACK"; TURNED TWICE DURING THE NIGHT; INCONTINENT; CHANGE TWICE; ONE BM; USED BYPAP DURING THE NIGHT; ABLE TO REST WITH EYES CLOSED; MONITORING; ASSESSMENT CHARGED; FOLLOWING POC; WILL PASS ON REPORT.
--- NOTE | 2018-10-25 08:24 | EKG ---
[address] [place] [address] ELECTROCARDIOGRAM REPORT Name: ANGELIQUE BULLOCK Room #: 217-P ADM IN M.R.#: [id number] Admission: 10/12/18 Attend Phys: Ajay Pinto MD Discharge: Date of : 48 Report #: [id number] THIS REPORT FOR: //name// 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: Yaniv BENÍTEZ : 1950 Requested By: Soy Morin Order Number: [id number] MD: Romel Michaud Measurements Intervals [place] Rate: 53 P: 47 [place]: 200 QRS: 30 QRSD: 113 T: 23 QT: 515 QTc: 484 Interpretive Statements Sinus bradycardia Otherwise normal tracing Compared to ECG 10/12/2018 10:14:13 ST (T wave) deviation no longer present Prolonged QT interval no longer present Electronically Signed On 10-25-2018 8:24:38 CDT by Romel Michaud [email or web address] <ELECTRONICALLY SIGNED> By: Romel Michaud MD, [facility] 10/25/18 0824 1334 1334 Romel Michaud MD, [facility] /EPI
--- NOTE | 2018-10-25 08:37 | EKG ---
[address] [place] [address] ELECTROCARDIOGRAM REPORT Name: ANGELIQUE BULLOCK Room #: 217-P ADM IN M.R.#: [id number] Admission: 10/12/18 Attend Phys: Ajay Pinto MD Discharge: Date of : 48 Report #: [id number] THIS REPORT FOR: //name// [facility] Test Date: 2018-10-25 Test Time: 07:31:08 Pat Name: ANGELIQUE BULLOCK Department: Room: 217 P Gender: F First Mate: SOPHIE : 1950 Requested By: Soy Morin Order Number: [id number] MD: Romel Michaud Measurements Intervals [place] Rate: 63 P: 69 [place]: 50 QRS: 26 QRSD: 111 T: -9 QT: 494 QTc: 506 Interpretive Statements Sinus rhythm Prolonged QT interval Compared to ECG 10/12/2018 10:14:13 no significant change was found Electronically Signed On 10-25-2018 8:36:53 CDT by Romel Michaud [email or web address] <ELECTRONICALLY SIGNED> By: Romel Michaud MD, [facility] 10/25/18 0836 D: [id number] Romel Michaud MD, [facility] /EPI
[2018-10-25 09:18] VITALS: BP 110/63
[2018-10-25 13:00] VITALS: BP 127/69
[2018-10-25 13:41] LABS: BE(vivo) 1.2 mmol/L (-2 to +3); HCO3 27.3 mmol/L (22.0-26.0); PCO2 50.7 mmHg (35.0-45.0); PO2 65.7 mmHg (80.0-100.0); pH 7.349 (7.360-7.450); sO2 91.8 % (92.0-98.0)
--- NOTE | 2018-10-25 14:09 | NUR ---
DC plan discussed with the attending. Likely dc tomorrow pending lab and stool occult test. Pt's dtr and care team updated. Keshia in the sleep lab notified and will confirm pt can go to the lab at [facility] tomorrow evening. Dtr to be here by 7:30pm to go through her dc paperwork and provide care during her sleep study. [facility] updated and they are standing by for the sleep study results. He will f/u early next week to get her bipap ordered if indicated. [facility] will resume her care on Monday. They will need dc orders faxed to them tomorrow. Will reconfirm with all parties tomorrow and finalize dc orders.
[2018-10-25 19:59] VITALS: BP 128/66
--- NOTE | 2018-10-25 20:05 | NUR ---
ASSUMED CARE OF PATIENT AT 0700. ASSESSMENTS COMPLETED. PATIENT REFUSED SOME MEDICATIONS AND TO BE TURNED THROUGHOUT THE DAY. FEMALE SUCTION DEVICE IN PLACE PATIENT IS INCONTINENT TO URINE. PATIENT IN ISOLATION FOR MRSA AND CDIFF. BLOOD SUGARS CHECKED AC&HS VIA BLOOD DRAW. PATIENT HAS SO MUCH EXTRA FLUID THAT FINGER STICKS ARE NOT ACCURATE. PATIENT TO CONTINUE WITH POC.
[2018-10-26 01:40] LABS: HEMATOCRIT 25.6 % (37.0-47.0); HEMOGLOBIN 8.2 gm/dL (12.0-15.0); MCH 27.2 pg (26.0-34.0); MCHC 32.2 g/dL (28.0-37.0); MCV 84.7 fL (80.0-100.0); RBC 3.02 mil/uL (4.20-5.00); RDW 17.4 % (10.5-14.5)
[2018-10-26 01:44] LABS: CALCIUM 8.3 mg/dL (8.5-10.1); CREATININE 2.9 mg/dL (0.6-1.0); MAGNESIUM 2.5 mg/dL (1.8-2.4)
--- NOTE | 2018-10-26 04:26 | NUR ---
PATIENT ALERT TO SELF AND PLACE, RE-ORIENTED TO TIME. SINUS BRADYCARDIA ON VICE PRESIDENT PRECISION MARKET INSIGHTS. ON BIPAP OVER NIGHT. PATIENT INCONTINENT. BLOOD SUGAR CLOSELY MONITORED. NO SIGNIFICANT EVENTS OVER NIGHT. PLAN OF CARE DISCUSSED. WILL CONTINUE TO MONITOR.
[2018-10-26 04:45] VITALS: BP 126/59
[2018-10-26 08:03] VITALS: BP 125/56
[2018-10-26 12:51] VITALS: BP 118/61
[2018-10-26] MEDS ORDERED: FOLIC ACID 1 MG1 MG PO (13:32)
[2018-10-26] MEDS ORDERED: FIRVANQ50 MG/1 ML PO (13:32)
[2018-10-26] MEDS ORDERED: IPRAT-ALBUT 0.5-3 ML INH (13:32)
[2018-10-26] MEDS ORDERED: FIRVANQ25 MG/1 ML PO (13:32)
[2018-10-26] MEDS ORDERED: PANTOPRAZOLE SO40 M1 PO (13:32)
[2018-10-26] MEDS ORDERED: METOPROLOL SUCC50 MG PO (13:32)
[2018-10-26 14:09] VITALS: BP 118/61
--- NOTE | 2018-10-26 14:17 | NUR ---
Pt dcing this evening to home with hh with [facility]. She will go directly to the sleep lab (outpt) this evening at 7:30pm. Dtr will be here to go with her and provide care during her overnight. [facility] from [facility] for transport home in the am. Keshia in the sleep lab will fax and call [facility] for dc time in the am. Dc technical planner to fax her hh orders to [facility]. They will see her Monday. [facility] aware of the plan and will f/u with the pt's dtr once the sleep study has been rec'd. All parties updated and agreeable to the dc plan.
--- NOTE | 2018-10-26 17:08 | NUR ---
Received awake on bed. Due medications given as prescribed. Pt alert to self, forgetful, pt re-oriented. On heart monitoring- telemetry strips attached to chart, pt running bradycardic- Dr davison informed. With bilateral leg edema- pt's extremities kept elevated; pt turned frequently. On O2 at 1.5lpm via nasal cannula, using bipap at night. Pt on heart healthy diet with supplements- encouraged and assisted pt in eating, drinking and ADLs. A/W fecal occult specimen- pt had a bowel movement earlier but it is contaminated with urine, thus unable to obtain specimen, to try again if she has another bowel movement. With external villareal catheter connectecd to suction- output measured and recorded accordingly. Pt turned regularly on her sides. on blood sugar monitoring-taken and recorded accordingly. With SL at R chest- intact and flushing well. Pt with scars on her sacrum, intact. Maintained on isolation due to MRSA on her nares and C.diff. Possible discharge today then to have sleep study this evening. Pt has been refusing Oral vancomycin despited explanation of indication and importance of taking medication- Dr Ratliff informed. Pt incontinent of bowel and bladder, pt checked frequently and pad changed as needed. Pt running bradycardic on telemetry- Dr Davison informed and aware that pt has been bradycardic- Cardio also informed. Discharge orders put in by Dr Davison- CM informed and aware, documents for sleep lab staff given. Pt to be fetched by her daughter then go to sleep lab for her studies overnight then to go home tomorrow AM- transport to be called in by sleep lab staff in AM. Discharge orders, follow up schedule, prescription and discharge forms to be instructed to patient's daughter. Pt IV pulled out by herself as she mentioned she's going home already, explained to pt that we still have to wait for her daughter to pick her up- dressing placed on area.
[2018-10-26 17:16] VITALS: BP 103/51
[2018-10-26 17:43] VITALS: BP 118/61
--- NOTE | 2018-10-26 17:49 | NUR ---
FAXED DC ORDERS/SUMMARY TO [facility] RECEIVED CONFIRMATION AND THEY WILL NOTIFY PT TIME OF VISITS.
--- NOTE | 2018-10-29 09:53 | NUR ---
MICHAEL WAS NOTIFIED SATURDAY 10/[address] [facility] THEY WERE REQUESTING THAT I FAX A REFERRAL FROM PT'S HOSPITAL STAY TO [facility]. THEY FELL PT IS NOT SAFE AT HOME AND PT IS REQUESTING TO GO TO [facility]. JENNIP FAXED REFERRAL TO [facility] AND LEFT MSG WITH OSMEL IN ADM TO F/U WITH [facility].
[2018-10-30] MEDS ORDERED: NEBULIZER MISCELL ×2 (15:37→15:38)
== END 2018-10-26 19:06 | disposition home health service (06) | DRG 682 ==
LOC: ER 09:36 → EROBS 11:47 → 2N 11:47 → ENTRNSPT 10-26 18:43 → 2N 10-26 19:06
PROVIDERS: Emergency Medicine; Hospitalist; Internal Medicine; Internal Medicine Nephrology; Nurse Practitioner; Specialist; ADMIT Hospitalist
PROC: 5A09357 Assistance with Respiratory Ventilation, Less than 24 Consecutive Hours, Continuous Positive Airway Pressure (ICD-10-PCS; principal; 2018-10-12)
PROC: 5A09357 Assistance with Respiratory Ventilation, Less than 24 Consecutive Hours, Continuous Positive Airway Pressure (ICD-10-PCS; 2018-10-13)
PROC: 5A09357 Assistance with Respiratory Ventilation, Less than 24 Consecutive Hours, Continuous Positive Airway Pressure (ICD-10-PCS; 2018-10-14)
PROC: 5A09357 Assistance with Respiratory Ventilation, Less than 24 Consecutive Hours, Continuous Positive Airway Pressure (ICD-10-PCS; 2018-10-15)
PROC: 5A09357 Assistance with Respiratory Ventilation, Less than 24 Consecutive Hours, Continuous Positive Airway Pressure (ICD-10-PCS; 2018-10-16)
PROC: 5A09357 Assistance with Respiratory Ventilation, Less than 24 Consecutive Hours, Continuous Positive Airway Pressure (ICD-10-PCS; 2018-10-17)
PROC: 5A09357 Assistance with Respiratory Ventilation, Less than 24 Consecutive Hours, Continuous Positive Airway Pressure (ICD-10-PCS; 2018-10-18)
PROC: 5A09357 Assistance with Respiratory Ventilation, Less than 24 Consecutive Hours, Continuous Positive Airway Pressure (ICD-10-PCS; 2018-10-19)
PROC: 5A09357 Assistance with Respiratory Ventilation, Less than 24 Consecutive Hours, Continuous Positive Airway Pressure (ICD-10-PCS; 2018-10-20)
PROC: 5A09357 Assistance with Respiratory Ventilation, Less than 24 Consecutive Hours, Continuous Positive Airway Pressure (ICD-10-PCS; 2018-10-24)
PROC: 5A09357 Assistance with Respiratory Ventilation, Less than 24 Consecutive Hours, Continuous Positive Airway Pressure (ICD-10-PCS; 2018-10-25)
PROC: 5A09357 Assistance with Respiratory Ventilation, Less than 24 Consecutive Hours, Continuous Positive Airway Pressure (ICD-10-PCS; 2018-10-26)
DX: N17.9 Acute kidney failure, unspecified (principal); I50.33 Acute on chronic diastolic (congestive) heart failure; E43 Unspecified severe protein-calorie malnutrition; J18.9 Pneumonia, unspecified organism; J96.21 Acute and chronic respiratory failure with hypoxia; J96.22 Acute and chronic respiratory failure with hypercapnia; G92 Toxic encephalopathy; J81.1 Chronic pulmonary edema; N39.0 Urinary tract infection, site not specified; A04.72 Enterocolitis due to Clostridium difficile, not specified as recurrent; I13.0 Hypertensive heart and chronic kidney disease with heart failure and stage 1 through stage 4 chronic kidney disease, or unspecified chronic kidney disease; E78.5 Hyperlipidemia, unspecified; K21.9 Gastro-esophageal reflux disease without esophagitis; N18.3 Chronic kidney disease, stage 3 (moderate); D64.9 Anemia, unspecified; E11.22 Type 2 diabetes mellitus with diabetic chronic kidney disease; E11.649 Type 2 diabetes mellitus with hypoglycemia without coma; E87.6 Hypokalemia; G47.33 Obstructive sleep apnea (adult) (pediatric); E87.70 Fluid overload, unspecified; I89.0 Lymphedema, not elsewhere classified; D72.829 Elevated white blood cell count, unspecified; E83.42 Hypomagnesemia; D69.6 Thrombocytopenia, unspecified; E87.5 Hyperkalemia; Z96.653 Presence of artificial knee joint, bilateral; N20.0 Calculus of kidney; B96.5 Pseudomonas (aeruginosa) (mallei) (pseudomallei) as the cause of diseases classified elsewhere; E66.01 Morbid (severe) obesity due to excess calories; Z90.710 Acquired absence of both cervix and uterus; Z68.35 Body mass index [BMI] 35.0-35.9, adult; Z86.718 Personal history of other venous thrombosis and embolism; Z99.3 Dependence on wheelchair
CPT/HCPCS: 10081

== ENCOUNTER → 2018-10-26 | Outpatient (CLI) | payer OTHER ==
[~2018-10-26] MED LIST changes: +FIRVANQ25 MG/1 ML PO; +FIRVANQ50 MG/1 ML PO; +FOLIC ACID 1 MG1 MG PO; +IPRAT-ALBUT 0.5-3 ML INH; +METOPROLOL SUCC50 MG PO; +NEBULIZER MISCELL; +PANTOPRAZOLE SO40 M1 PO
--- NOTE | 2018-10-28 22:34 | SLE ---
[facility] [place] [address] POLYSOMNOGRAPHY STUDY Name: ANGELIQUE BULLOCK Room #: REG [facility]#: [id number] Admission: 10/26/18 ������������������ Attend Phys: Maurizio Pillai MD Discharge: ������������������ Date of : 48 Report #: [id number] THIS REPORT FOR: //name// CC: Maurizio Coffman DATE OF SERVICE: 10/26/2018 REFERRING PHYSICIAN: Dr. Bethanie Jones. The patient is a 68-year-old who weighs 217 pounds with a BMI of 37.2. The patient's [place] score was 14. The patient was referred back from the hospital for sleep study. The patient was brought in on 2 liters and study was performed on room air. During the night study, the patient spent 442 minutes in bed and slept for 404 minutes with a sleep efficiency of 91%. Sleep latency was 4 minutes with absent REM sleep. Overall, sleep architecture showed absent stage 1 sleep, increased N2 sleep, normal N3 and absent REM sleep. During the initial diagnostic portion of the study, the patient slept for 256 minutes. During that time, the patient had 2 obstructive apneas, 1 central apnea, no mixed apneas and 111 hypopneas. The patient's apnea hypopnea index was 26 per hour with a supine index of 26 per hour. REM sleep was not seen. EKG monitoring revealed mean heart rate of 55 beats per minute. No sustained arrhythmias observed. PLMS were seen at an index of 17 per hour, but only 0.2 per hour caused EEG arousals. PLM index resolved while on CPAP. Nocturnal oximetry study during the diagnostic portion revealed an average oxygen saturation of 88% with lowest of 59%. 184 minutes were spent in oxygen saturation of less than 89%. The patient met the criteria for CPAP initiation. It was started at 9 cm of water and titrated up to 13 cm water. At the final pressure, the patient slept for 23 minutes. The patient had supine sleep, but no REM sleep. The patient's AHI was reduced to 5 per hour and oxygen saturations remained above 88%. IMPRESSION: 1. Moderate sleep apnea-hypopnea syndrome. Total AHI of 26.7 per hour. Absence of REM sleep can underestimate the severity of sleep apnea. 2. Mild to moderate PLMS which subsequently resolved while the patient slept on CPAP and as such does not need to be treated. 3. Nocturnal hypoxia due to combination of OJ and hypoventilation, resolved with PAP therapy. [facility] [address] [place] [address] POLYSOMNOGRAPHY STUDY Name: ANGELIQUE BULLOCK Room #: REG [facility].#: [id number] Admission: 10/26/18 ������������������ Attend Phys: Maurizio Pillai MD Discharge: ������������������ Date of : 48 Report #: [id number] RECOMMENDATIONS: 1. CPAP at 13 cm water should be used on a nightly basis. 2. Follow up in 4-6 weeks to assess compliance with CPAP and to document clinical improvement. 3. Weight loss is advised. 4. Avoid MINERAL SURVEYOR depressants. 5. Cautioned regarding driving until symptoms of sleep apnea resolve with the use of CPAP. ��������������������������������������������� <ELECTRONICALLY SIGNED> ���������������������������������������� By: Maurizio Pillai MD ��������������������������������������������� 10/28/18 2234 [id number] 39 Maurizio Pillai MD /nt
== END ==
LOC: SEN 16:39 → SLEEPLAB 20:07
DX: G47.33 Obstructive sleep apnea (adult) (pediatric) (principal); G47.30 Sleep apnea, unspecified; R09.02 Hypoxemia

== ENCOUNTER 2018-11-23 14:35 | Inpatient (IN) | payer OTHER ==
[~2018-11-23] VITALS: Ht 165.1 cm; Wt 102.1 kg
[2018-11-23 14:38] VITALS: BP 144/73
[2018-11-23 15:32] LABS: ABSOLUTE NEUTROPHILS 8.4 thou/uL (1.4-8.2); BASOPHILS 1.8 % (0.0-2.0); EOSINOPHILS 4.3 % (0.0-3.0); HEMATOCRIT 22.6 % (37.0-47.0); HEMOGLOBIN 7.2 gm/dL (12.0-15.0); LYMPHOCYTES 12.4 % (24.0-44.0); MCH 29.3 pg (26.0-34.0); MCHC 31.8 g/dL (28.0-37.0); MCV 92.2 fL (80.0-100.0); MONOCYTES 10.2 % (1.0-8.0); PLATELET COUNT 159 thou/uL (150-400); POLYS 71.3 % (36.0-66.0); RBC 2.45 mil/uL (4.20-5.00); RDW 22.6 % (10.5-14.5); WBC 11.8 thou/uL (4.0-11.0)
[2018-11-23 15:40] LABS: CALCIUM 8.1 mg/dL (8.5-10.1); CREATININE 1.9 mg/dL (0.6-1.0)
[2018-11-23 15:59] LABS: TOTAL BILIRUBIN 0.9 mg/dL (<0.1-1.0); TOTAL PROTEIN 7.2 g/dL (6.4-8.2)
[2018-11-23 16:05] LABS: ANISOCYTOSIS 2+; HYPOCHROMASIA 1+
[2018-11-23 17:11] VITALS: BP 145/77
[2018-11-23 18:51] VITALS: BP 123/64
[2018-11-23 19:47] LABS: % SATURATION 15 % (20-39); IRON 24 ug/dL (50-170); TIBC 159 ug/dL (250-450)
--- NOTE | 2018-11-23 20:09 | NUR ---
Admitted on the floor at 1830, transferred to room safely. On room air. Unable to sign admission papers, pt confused and no relative present upon admission. With SL at L AC- NS at 125cc/hr, infusing well. Consult with Dr Avery called in by US. On blood sugar monitoring- taken and recorded accordingly, pre- dinner CBG of 38, Glucose tube given by mouth but patient refused, D50 given thru IV, to recheck blood sugar after intervention. Pt pad checked and changed. With bruise at her Left lower back- senior tax accountant informed to re-assess, sacrum intact. Vital signs stable. To continue admission care on patient, to keep monitoring.
[2018-11-23 23:23] VITALS: BP 117/53
[2018-11-24 05:09] VITALS: BP 120/61
[2018-11-24 06:47] LABS: ABSOLUTE NEUTROPHILS 5.3 thou/uL (1.4-8.2); MCH 30.2 pg (26.0-34.0); MCV 92.2 fL (80.0-100.0)
[2018-11-24 06:48] LABS: BASOPHILS 0.8 % (0.0-2.0); EOSINOPHILS 3.5 % (0.0-3.0); LYMPHOCYTES 15.8 % (24.0-44.0); MCHC 32.8 g/dL (28.0-37.0); MONOCYTES 9.9 % (1.0-8.0); PLATELET COUNT 108 thou/uL (150-400); RDW 21.7 % (10.5-14.5); WBC 7.6 thou/uL (4.0-11.0)
[2018-11-24 06:56] LABS: HEMATOCRIT 19.4 % (37.0-47.0)
[2018-11-24 06:57] LABS: HEMOGLOBIN 6.3 gm/dL (12.0-15.0)
[2018-11-24 07:12] LABS: ALBUMIN 1.9 g/dL (3.4-5.0); CALCIUM 7.6 mg/dL (8.5-10.1); CREATININE 1.8 mg/dL (0.6-1.0); MAGNESIUM 1.4 mg/dL (1.8-2.4); POTASSIUM 3.9 mmol/L (3.5-5.1); TOTAL BILIRUBIN 0.6 mg/dL (<0.1-1.0); TOTAL PROTEIN 6.5 g/dL (6.4-8.2)
--- NOTE | 2018-11-24 07:33 | NUR ---
ASSUMED CARE AROUND 1900. AXOX2. IRRITABLE. PERSISTENT HYPOGLYCEMIA, IVF CHANGED TO D5W 1/2NS. OBTAINED AN ORDER TO [facility] SERVICE IV TEAM FOR POSSIBLE MIDLINE PLACEMENT FOR LAB DRAWS AND INFUSION. CARE TRANSFERRED TO DAY RN AT THIS TIME.
[2018-11-24 08:00] VITALS: BP 108/50
--- NOTE | 2018-11-24 11:16 | NUR ---
Pt is in need of a PICC line and blood transfusion. Daughter could not be reached and mail box is full, not aswering calls. Informed Dr. Pinto, he advised that pt is alert and oriented x 4 and can sign her consents. Charge nurse and nurse spoke to the pt, pt mentioned that MD had informed her that she does not need a blood transfusion and refuses a PIC line. Staff explained the critical lab and the need to have a blood transfusion by pt insists that she was advised by the doctor ariel cage and refused both interventions. Paged Dr. Pinto several times and air mail was just sent to inform of the situation. Awaiting advise from Dr. Pinto.
--- NOTE | 2018-11-24 11:44 | NUR ---
Received asleep on bed. Due medications given as prescribed. On room air. For insertion of midline or PICC line c/o IV team, consult already placed in by fast food shift supervisor. On blood sugar monitoring- taken and recorded accordingly every 6 hours. Pt's extremities edematous. Lab relayed critical value of Hb 6.3 and hct 19.4- Dr Pinto informed; ordered blood transfusion of 1 unit Packed cells, to transfuse once pt has an IV access. Called pt's daughter to obtain verbal consent for PICC line and blood transfusion, tried several times but daughter is not picking up and voicemail is full, asked US to continue contacting daughter and even tried sending daughter a text message re: consent. Dr Pinto informed re: bruise on her left flank and hip- as per Dr Pinto pt's bruise is from previous subcutaneous injection; informed Dr Pinto re: unable to contact the daughter to obtain consent, as per Dr Pinto pt is A+Ox4 and pt can give consent. Went to pt's room, explained re: the need for her to have an IV access and to do blood transfusion, pt refused despite explaning to her the importance and need of the interventions, went back to patient's room with charge nurse, explanation made but pt still refused all intervention. Paged Dr Pinto to inform him but no call back made. After several attempts to inform physician, Dr Pinto called back and informed pt's refusal of PICC line and blood transfusion, physician aware and advised to document refusal, also informed him that since I last took care of the patient blood draws was done for her CBG monitoring and there was a big discrepancy from blood draw and finger pricks, lab unable to obtain blood from pt- as per Dr Pinto- to continue blood sugar monitoring by finger prick and treat accordingly, also informed him that pt refusing to eat and just wanted to have orange juice instead. Vital signs stable. Pt refuses to be turned.
--- NOTE | 2018-11-24 13:00 | NUR ---
PATIENT IS REFUSING ALL IV ACCESS AT THIS TIME. DISCUSSED WITH THE PATIENTS STAFF NURSE AND I WILL RETURN FOR ACCESS PLACEMENT IF THE PATIENT CONSENTS TO PLACEMENT
[2018-11-24 15:00] VITALS: BP 114/62
[2018-11-24 19:50] VITALS: BP 112/59
--- NOTE | 2018-11-24 22:24 | NUR ---
ASSUMED CARE AROUND 1900. AXOX3. RESISTING ALL INVASIVE MEDICAL TX. PT AGREED TO HAVE HER VITAL SIGN TAKEN AND GET CLEANED UP FROM BOWEL MOVEMENT. HOWEVER, PT WILL NOT CONSENT FOR IV PLACEMENT. TEMP WAS NOTED AT 95.8 RECTUM. CALLED DINING ROOM CASHIER SALES SUPPORT REP FOR AND PLACED PT NOW ON PATRICIA HUGGER. TRIED TO CALL DTR AGAIN AND GRANDDAUGHTER ONEYDA BRITO ANSWERED THE PHONE. DTR CRUZ IS ALSO HOSPITALIZED WITH CRITICAL MEDCIAL CONDITION AT A [facility]. PER ONEYDA, PT WILL PROBALY NOT CHANGE HER MIND ABOUT REFUSING CARE THAT ONEYDA WILL TRY TO VISIT TOMORROW. ONEYDA'S CONTACT INFO IS UPDATED. WILL CONT TO MONITOR FOR ANY CHANGES.
[2018-11-24 23:18] VITALS: BP 122/61
[2018-11-25 05:23] VITALS: BP 90/45
[2018-11-25 05:39] VITALS: BP 103/56
[2018-11-25 07:07] VITALS: BP 94/38
--- NOTE | 2018-11-25 14:32 | NUR ---
PATIENT ALERT X4, DECLINES IV ACCESS, TREATING LOW BLOOD SUGARS WITH GLUCOSE TABLETS AND ORANGE JUICE. PT DECLINES SCHEDULED MEDICATIONS, AND FLUIDS. DR YODER NOTIFIED OF LOW BS AND LOW BP WITH ORDERS FOR HOSPICE CONSULT. GRANDDAUGHTER AND NEPHEW BEDSIDE AT THIS TIME AND AWARE OF PATIENT'S DECISION TO DECLINE TREATMENT.
[2018-11-25 15:41] VITALS: BP 118/55
[2018-11-25 20:25] VITALS: BP 105/59
--- NOTE | 2018-11-26 02:37 | NUR ---
PATIENT AOX4 MAKES NEEDS KNOWN. PATIENT REFUSED CARE, TURNED X1 THIS SHIFT. NO IV ACCESS D/T PATIENT REFUSING A PICC LINE. PATIENT BLOOD SUGARS HAVE BEEN LOW 60. HYPOGLYCEMIA TREATED PER PROTOCCOL. SNACKS AND GLUCAGON TABS GIVE PER . ORDER.BLOOD SUGAR IS 81 AT THIS TIME. NURSE PRACTITIONER NOTIFIED OF PATIENT LOW BLOOD SUGAR NO NEW ORDERS.PATIENT INCONTIENT PERICARE AND BARRIER CREAM APPLIED NEEDED. PAIN CONTROLLED THIS SHIFT. PATIENT IN BED ASLEEP AT THIS TIME BREATHING REGULAR AND UNLABOURED.
[2018-11-26 03:25] VITALS: BP 117/88
[2018-11-26 07:20] VITALS: BP 134/60
--- NOTE | 2018-11-26 08:14 | NUR ---
RD consult received for poor intake and hypoglycemia. Chart reviewed, noted severe protein calorie malnutrition, and hospice services will be pursued. Defer further nutrition assessment at this time. Continue diet as tolerated
[2018-11-26 11:30] LABS: MCH 29.9 pg (26.0-34.0)
[2018-11-26 11:31] LABS: ABSOLUTE NEUTROPHILS 3.8 thou/uL (1.4-8.2); BASOPHILS 1.9 % (0.0-2.0); EOSINOPHILS 5.8 % (0.0-3.0); LYMPHOCYTES 18.6 % (24.0-44.0); MCHC 32.1 g/dL (28.0-37.0); MCV 93.1 fL (80.0-100.0); MONOCYTES 4.9 % (1.0-8.0); POLYS 68.8 % (36.0-66.0); RDW 21.4 % (10.5-14.5); WBC 5.5 thou/uL (4.0-11.0)
[2018-11-26 11:36] LABS: CALCIUM 7.5 mg/dL (8.5-10.1); CREATININE 2.1 mg/dL (0.6-1.0); POTASSIUM 4.9 mmol/L (3.5-5.1)
[2018-11-26 11:37] LABS: PROTIME 10.9 Seconds (9.3-11.4)
[2018-11-26 11:51] LABS: ALBUMIN 1.9 g/dL (3.4-5.0); MAGNESIUM 1.5 mg/dL (1.8-2.4); TOTAL BILIRUBIN 0.6 mg/dL (<0.1-1.0); TOTAL PROTEIN 6.4 g/dL (6.4-8.2)
[2018-11-26 11:56] LABS: HEMATOCRIT 19.6 % (37.0-47.0); HEMOGLOBIN 6.3 gm/dL (12.0-15.0)
[2018-11-26 12:48] LABS: ANISOCYTOSIS 1+; PLATELET COUNT 256 thou/uL (150-400); PLATELET ESTIMATE NORMAL; POLYCHROMASIA SLIGHT
--- NOTE | 2018-11-26 13:30 | NUR ---
Received awake on bed. Pt refusing to take meds despite explanation the indication and importance of taking meds. A+O. On room air. On blood sugar monitoring, taken and recorded accordingly; With CBG of 68 from this AM, pt refusing to have glucagon shot, and glucose tube; just wanted orange juice, glucose tablet given to patient together with her orange juice. Incontinent of B/B, pad checked regularly. Pt refusing to be repositioned and turned. IV access and blood transfusion still refused. A/W Dr's advise re: possible hospice care. Vital signs stable, with quinten iqbal at bedside. Maintained on isolation, d/t C.Diff and MRSA. With critical result of Hb: 6.3 and Hct 19.6 relayed by lab staff, Dr Rene informed, currently here in the hanks and she rounded on the pt. Pt still refused to have IV access and blood transfusion as per Dr Rene, will do comfort care, informed her that Dr Duggan will have his round this - also informed. Pt refusing meal tray, offered snacks but refused as well, prefers to have orange juice and yogurt instead which is constantly offered to her.
--- NOTE | 2018-11-26 14:19 | NUR ---
senior planner faxed updates to [facility], patient is from there. Dp will let them know.
--- NOTE | 2018-11-26 16:03 | NUR ---
PT ADMITTED RELATED TO ANEMIA. CM REVIEWED CHART AND SPOKE WITH CARE TEAM. C MET WITH PT AT BEDSIDE THIS DAY. CM MET WITH PT AT BEDSIDE THIS THIS DAY PT INDICATED SHE HAD BEEN AT [facility] AND THAT THEY HAD USED A SHANICE LIFT TO ASSIST WITH TRANSFERS. PT INDICATED SHE HAD BEEN THERE A FEW WEEKS. PT INDICATED SHE PLAND TO RETURN THERE UPON DC. PT INDICATED THAT HER DTR ISN'T WELL CURRENTLY BUT THAT STAFF COULD CONTACT HER GEETA BRITO . CM CALLED AND SPOKE WITH JUDY AND SHE CONFIRMED THE ABOVE. CARE TEAM INDICATED THAT PT WOULD BENEFIT FROM DR. JOHNSON CONSULT. HE SAW PT AND SPOKE WITH JUDY. REFERRAL SENT TO HOSPICE TO DO INFORMATIONAL PHONE CALL WITH JUDY FOR HER TO DETERMINE IF THEY WANT TO ELECT HOSPICE SERVICES UPON HER RETURN TO [facility]. CM FOLLOWING INDICATED WITH DC PLANNING.
[2018-11-26 19:54] VITALS: BP 137/72
[2018-11-26 20:35] VITALS: BP 155/70
--- NOTE | 2018-11-26 23:21 | NUR ---
Assumed pt care at 1900. Pt A/O to self,place and situation on assessment.C/o pain to josee knees medicated per EMAR with relief reported. Pt's blood sugar checked at beginning of shift;50 offered food/snacks but declined only wants apple juice. Apple juice provided and rechecked again it's 57. Glucagon tabs mixed with apple juice since pt was refusing to take it stating she's fine.Pt is incontinent of urine,cleaned and moisture barrier applied. Refused to be turned. Will continue to monitor pt, made comfortable quinten hugger in place.
--- NOTE | 2018-11-27 02:17 | NUR ---
Orders noted per ,discussed with pt about requiring IV inserted. Pt agreeable with it, attempts times 2 to insert IV without success pt stated"forget about it" informed the importance of meds but declined being stuck again. Will notify the retail warehouse supervisor.
[2018-11-27 08:00] VITALS: BP 146/74
[2018-11-27 09:31] LABS: HEMOGLOBIN 7.1 gm/dL (12.0-15.0); MCV 92.7 fL (80.0-100.0)
[2018-11-27 09:34] LABS: MCH 30.1 pg (26.0-34.0); MCHC 32.5 g/dL (28.0-37.0); RBC 2.37 mil/uL (4.20-5.00); WBC 8.6 thou/uL (4.0-11.0)
[2018-11-27 09:37] LABS: CALCIUM 7.7 mg/dL (8.5-10.1); CREATININE 1.9 mg/dL (0.6-1.0)
--- NOTE | 2018-11-27 10:17 | NUR ---
DP faxed face sheet to [employer] to assist for secondary Medicaid.
[2018-11-27 10:51] LABS: ABSOLUTE NEUTROPHILS 5.8 thou/uL (1.4-8.2); ANISOCYTOSIS 2+
[2018-11-27 10:52] LABS: PLATELET COUNT 116 thou/uL (150-400)
--- NOTE | 2018-11-27 14:52 | NUR ---
Assumed pt care this am, pt refuses all medication and blood sugar checks. Seen by Dr. Ortega, pt denies any pain nor discomfort. Asked again and explained to the pt the need for a Central line, pt stated that she feels well and this was not necessary, pt would often ask staff " leave me alone" , Encouraged hydration, pt would onnly take apple juice at times and ate 3 small spoons of rice and turkey. Pt refuses to turn q2 despite education her on the benefits and to prevent a pressure ulcer. Also explained the need for a blood trasnfusion due to the low Hgb thus needing IV access, pt refused and mentioned that she is feeling well and would rather be comfortable vs "doing all of this". Dr. Ortega aware of the situation, awaiting next steps as per CM.
[2018-11-27 15:00] VITALS: BP 179/67
--- NOTE | 2018-11-27 16:31 | NUR ---
CM CALLED PT'S DI KIM TO DISCUSS DC PLANNING. CM GOT HER VM. CM AWAITING RESPONSE. [facility] AND THEY WOULD BE ABLE TO ACCEPT HER BACK SKILLED UPON DC BUT NOT WITH HOSPICE PT WOULDN'T HAVE A PAYOR SOURCE. FACE SHEET WAS SENT TO [employer] FOR THEM TO ASSIST WITH A MEDICAID KEVIN BUT THEY ALSO WOULDN'T TAKE PT MEDICAID PENDING WITH HOSPICE. CM SPOKE CYNTHIA MORRIS AND PT DOESN'T APPEAR TO BE EMINENT AND DOESN'T HAVE ANY SYMPTOMS THAT WE ARE WORKING TO CONTROL SO COULDN'T GO TO HOSPICE HOUSE. CM TO FOLLOW INDICATED WITH DC PLANNING.
[2018-11-27 20:04] VITALS: BP 133/58
--- NOTE | 2018-11-28 03:38 | NUR ---
ASSUMED CARE AROUND 1900. AXOX2. PT STILL REFUSES IV ACCESS. PT ALLOWED FOR VS AND GLUCOSE MONITORING. HYPOGLYCEMIA PROTOCOL WAS ACTIVATED. PT WOULD ALSO ALLOW FOR CHANGE. PATRICIA HUGGER IN PLACE TO MAINTAIN OPTIMAL BODY TEMP. NO S/S ACUTE DISTRESS NOTED OR REPORTED AT THIS TIME. WILL CONT TO MONITOR FOR ANY CHANGES IN CONDITION.
[2018-11-28 05:14] VITALS: BP 143/71
[2018-11-28 07:22] VITALS: BP 101/51
[2018-11-28 13:01] VITALS: BP 101/51
--- NOTE | 2018-11-28 15:22 | NUR ---
CM MET WITH PT AND GDTR AT BEDSIDE THIS AM. CM INDICATED THAT PT WASN'T APPROPRIATE FOR DIRECT ADMISSION TO HOSPICE HOUSE AT THIS TIME. CM INDICATED THAT [facility] WOULD TAKE PT BACK SKILLED BUT NOT LTC MEDICAID PENDING WITH HOSPICE. CM INDICATED THAT CM COULD CHECK TO SEE IF ANY FACILITIES WOULD BE WILLING/ABLE TO ACCEPT PT LTC MEDICAID PENDING WITH HOSPICE. CM SPOKE WITH PAOLA IN ADMISSIONS AT [facility] AND SHE WAS AWARE OF PT AND SITUATION. SHE INDICATED TO EVEN CONSIDER TAKING PT PT AND GDTR WOULD NEED TO BE ABLE TO SUPPLY SUPPORTING DOCUMENTION WITH COMPLETED MEDICAID KEVIN LIKE BANK STATEMENTS AND AWARD LETTER. CM CALLED GDTR AND LEFT VOICEMAIL WITH THIS INFO. CM AWAITING HER RESPONSE. CM TO FOLLOW INIDCATED WITH DC PLANNING.
[2018-11-28 16:20] VITALS: BP 109/56
--- NOTE | 2018-11-28 17:23 | NUR ---
Assumed pt care this am, pt is a total care and would refuse most if not all interventions, all medications have been refused despite the low blood sugar draws and after explaining the need for intervention, pt still refuses. Pt also refused diagnostics ordered by Dr. eSnior, informed the MD. Meg iqbal in place, pt still states she feel cold despite the rise in temp. but with in normal limits. Pt was offered apple juice this pm due to her low blood sugar and the pt still refused. Was able to turn the pt 3 times this shift. POC followed.
[2018-11-28 20:47] VITALS: BP 123/56
--- NOTE | 2018-11-29 02:10 | NUR ---
ASSUMED CARE AROUND 1900. REFUSING ALL TX INCLUDING BLOOD GLUCOSE MONITORING. ALERT AND ORIENTED TO SELF AND TIME. VSS. NO S/S ACUTE DISTRESS NOTED OR REPORTED AT THIS TIME. WILL CONT TO MONITOR FOR ANY CHANGES IN CONDITION.
[2018-11-29 06:25] VITALS: BP 133/59
[2018-11-29 08:00] VITALS: BP 158/97
--- NOTE | 2018-11-29 14:49 | NUR ---
DISCHARGE PLANNING. PATIENT REFERRAL FAXED TO [facility]. DISCHARGE PLAN IS FOR PATIENT TO DISCHARGE TO [facility] WITH HOSPICE SERVICES, MEDICAID PENDING. PER PAOLA, APPROVAL FROM CORPORATE MAY BE A LENGTHY PROCESS AND IT IS PENDING ALL PAPERWORK THAT IS NEEDED FROM FAMILY IN ORDER TO PROCESS PATIENTS MEDICAID APPLICATION. IF FAMILY DOES NOT PROVIDE PAPERWORK NEEDED FOR MEDICAID KEVIN PROCESS IN A REASONABLE AMOUNT OF TIME [facility] WILL NOT APPROVE PATIENT FOR ADMISSION. UNIT SW NOTIFIED. FOLLOWING.
--- NOTE | 2018-11-29 15:36 | NUR ---
CM MET WITH PT AND HER GDTR AT BEDSIDE THIS DAY. THEY ARE BOTH AGREEABLE WITH [place] GO[place] [facility] [place] WITH [place]. THEY INDICATED THEY WERE WILLING TO PROVIDE SUPPORTING DOCUMENTATION FOR THE MEDICAID APPLICATION AND FOR PT'S SOCIAL SECURITY CHECK TO BE SET UP FOR DIRECT [place]POSIT [place] [facility] . CM NOTIFIED PAOLA AT [facility] AND SHE INDICATED THAT THEY NEEDED TO GET KEVIN AND DOCUMENTS TO HER BRIDGET SO THEY SOULD BE SUMBITTED TO [employer] TO REVIEW. CM NOTIFIED PT AND GDTR. CM TO FOLLOW INIDCATED WITH DC PLANNING.
[2018-11-29 16:11] LABS: URINE BILIRUBIN NEGATIVE (Negative); URINE BLOOD 2+ (Negative); URINE CLARITY CLEAR; URINE COLOR YELLOW; URINE GLUCOSE-RANDOM* NEGATIVE (Negative); URINE KETONES NEGATIVE (Negative); URINE NITRITE-REFLEX NEGATIVE (Negative); URINE PROTEIN (DIPSTICK) 1+ (Negative)
[2018-11-29 16:14] LABS: URINE LEUKOCYTES-REFLEX 3+ (Negative)
[2018-11-29 16:25] LABS: CASTS None Seen /LPF (None Seen); CRYSTALS None Seen /LPF (None Seen); SQUAMOUS 0-3 Few /LPF (0-3); URINE WBC-REFLEX >25 Many /HPF (0-5)
[2018-11-29 16:26] LABS: BACTERIA-REFLEX 1-9 Few /HPF (None Seen); URINE RBC 3-10 Few /HPF (0-2)
[2018-11-29 17:16] VITALS: BP 156/72
--- NOTE | 2018-11-29 18:47 | NUR ---
CONSULTED TO PLACE A LINE FOR A PATIENT WITH LOW BLOOD SUGAR. THIS PATIENT HAS BEEN REFUSING ALL IV ACCESS FOR A WEEK AND CONTINUES TO REFUSE MOST MEDICAL TREATMENTS. SHE IS CONSENTING TO A MIDLINE AT THIS TIME. A MIDLINE WAS PLACED DUE TO LOW BLOOD SUGARS AND THE NEED FOR ACCESS. LINE WAS TRIMMED TO 12CM, SECURED AND RELEASED FOR USE
[2018-11-29 19:06] VITALS: BP 144/69
[2018-11-29 19:16] LABS: ABSOLUTE NEUTROPHILS 4.5 thou/uL (1.4-8.2); BASOPHILS 1.3 % (0.0-2.0); HEMATOCRIT 20.4 % (37.0-47.0); HEMOGLOBIN 6.7 gm/dL (12.0-15.0); MCV 91.3 fL (80.0-100.0)
[2018-11-29 19:19] LABS: EOSINOPHILS 5.6 % (0.0-3.0); LYMPHOCYTES 12.5 % (24.0-44.0); MCH 30.2 pg (26.0-34.0); MONOCYTES 5.5 % (1.0-8.0); PLATELET COUNT 112 thou/uL (150-400); POLYS 75.1 % (36.0-66.0); RBC 2.23 mil/uL (4.20-5.00); RDW 19.2 % (10.5-14.5)
[2018-11-29 19:37] LABS: ALBUMIN 1.7 g/dL (3.4-5.0); CALCIUM 7.5 mg/dL (8.5-10.1); CREATININE 2.1 mg/dL (0.6-1.0); MAGNESIUM 1.4 mg/dL (1.8-2.4); TOTAL BILIRUBIN 0.7 mg/dL (<0.1-1.0); TOTAL PROTEIN 6.9 g/dL (6.4-8.2)
--- NOTE | 2018-11-29 19:38 | NUR ---
ASSUMED CARE 0700. REMAINS ALERTX4, PAIN MANAGED WITH MEDICATIONS, EXTERNAL CATHETER PLACED FOR INCONTINENCE, PT PREFERS SELF TURN TOWARD RIGHT SIDE WHEN REQUIRED.NEEDS EXTRA TIME WITH TURNS. LOW BLOOD SUGARS TREATED WITH ORAL GLUCOSE AND APPLE JUICE. PATIENT AGREED TO HAVE MID LINE PLACED AND NOW ON D10. DR JAMES ROUNDED WITH PATIENT AND FAMILY AND DISCUSSED GOALS FOR DISCHARGE. PT ATE 90% OF BREAKFAST, DECLINED NOONE MEAL. 40% OF DINNER. CALL LIGHT IN REACH. DOES NOT CALL FOR ASSISTANCE. PT WAS TOLD BY HER FAMILY THAT HER DAUGHTER YESTURDAY. CONTINUE TO MONITOR.
[2018-11-30 04:10] LABS: C-PEPTIDE 2.1 ng/mL (1.1-4.4); INSULIN 7.3 uIU/mL (2.6-24.9)
[2018-11-30 05:40] LABS: BASOPHILS 1.2 % (0.0-2.0)
[2018-11-30 05:42] LABS: ABSOLUTE NEUTROPHILS 4.6 thou/uL (1.4-8.2); EOSINOPHILS 7.2 % (0.0-3.0); LYMPHOCYTES 14.5 % (24.0-44.0); MCH 30.4 pg (26.0-34.0); MCHC 33.4 g/dL (28.0-37.0); MONOCYTES 5.7 % (1.0-8.0); PLATELET COUNT 128 thou/uL (150-400); POLYS 71.4 % (36.0-66.0); RBC 2.08 mil/uL (4.20-5.00); RDW 19.2 % (10.5-14.5); WBC 6.4 thou/uL (4.0-11.0)
[2018-11-30 05:44] LABS: MAGNESIUM 1.5 mg/dL (1.8-2.4); PHOSPHORUS 3.3 mg/dL (2.5-4.9)
[2018-11-30 06:00] LABS: HEMATOCRIT 18.9 % (37.0-47.0); HEMOGLOBIN 6.3 gm/dL (12.0-15.0)
--- NOTE | 2018-11-30 06:28 | NUR ---
ASSUMED CARE AROUND 1900. AXOX2. AFTER MIDLINE WAS PLACED, BLOOD TEST COMPLETED. LOW HGB ADDRESSED TO CRYSTALLOGRAPHER CHARU PROCESSING ASSISTANT FOR . TRAFUSION ORDER GIVEN. HOWEVER, PT PERSISTENTLY REFUSES TRANFSUTION. TRIED TO EXPLAIN RISKS OF REFUSING TX AND BENEFITS OF TRANSFUSION. STILL REFUSES. CALLED CRYSTALLOGRAPHER AND UPDATED HER ON REFUSAL. IN AM, CRITICAL HBG ADDRESSED TO CRYSTALLOGRAPHER PROCESSING ASSISTANT AGAIN. PT STILL REFUSES TRANFSUTION. NNO AT THIS TIME. BLOOD GLUCOSE IS CONTROLLED WITH HYPOGLYCEMIA PROTOCOL. VSS. NO S/S ACUTE DISTRESS NOTED OR REPORTED AT THIS TIME. WILL CONT TO MONITOR FOR ANY CHANGES IN CONDITION.
--- NOTE | 2018-11-30 08:10 | HC ---
[facility] [place] [address] CONSULTATION Name: ANGELIQUE BULLOCK Room #: 450-P ADM IN M.R.#: [id number] Admission: 11/23/18 Attend Phys: Soy Morin MD Discharge: Date of : 48 Report #: [id number] THIS REPORT FOR: //name// CC: Jerry Morin DATE OF SERVICE: 11/29/2018 CONSULTING PHYSICIAN: Dr. Rene. REASON FOR CONSULTATION: Intractable hypoglycemia. HISTORY OF PRESENT ILLNESS: This is a 68-year-old female patient whose medical background is noted for hypertension, hyperlipidemia, diastolic heart failure as well as a distant history of diabetes mellitus and a mention of chronic kidney disease. The patient was admitted on 11/23/2018 with issue of severe anemia, elevated alkaline phosphatase and left abdominal wall hematoma. Also, the patient was noted to have hypoglycemia. The patient notes that she was possibly diagnosed with diabetes mellitus at some distant point in the past, but that she has not been on hypoglycemic agents for many years. The patient does not recall occurrences of severe symptomatic hypoglycemia over the past few months. However, during her hospital stay the patient was recorded as having multiple hypoglycemic episodes, reaching as low as 43 mg/dL with the majority of these values running in the 43-70 mg/dL. During these episodes, the patient feels tired, fatigued, but has fluctuating outlook on symptoms of palpitations, sweating and tremors. The patient is not aware of issues pertaining to her thyroid function or adrenal function. She has not had major difficulties with her current dizziness, lightheadedness, syncope. She denies current abdominal pain, nausea or vomiting. REVIEW OF SYSTEMS: CONSTITUTIONAL: Fatigue, tiredness, but not fever or chills or body weight changes. PULMONARY: Noted for occasional shortness of breath, dyspnea on exertion, intermittent cough, but no hemoptysis. HEENT: Negative for sinus pain, ear drainage. CARDIAC: Negative for chest pain, sustained palpitations noted to her leg edema. GASTROINTESTINAL: Intermittent issues with abdominal discomfort, nausea, but not major changes in bowel frequency. NEUROLOGY: Negative for loss of consciousness, headaches or seizure activity. SKIN: Noted for bruising over the abdominal wall. No major ulceration, rash or other abnormalities. PSYCHIATRIC: Negative for hallucinations, delusions. MUSCULOSKELETAL: Noted for scattered arthralgia, myalgia, unsteady gait. [facility] [address] [place] [address] CONSULTATION Name: ANGELIQUE BULLOCK Room #: 450-P ADM IN M.R.#: [id number] Admission: 11/23/18 Attend Phys: Soy Morin MD Discharge: Date of : 48 Report #: [id number] UROLOGY: Negative for dysuria, hematuria, or other major urinary abnormalities. Otherwise, review of systems noncontributory other than those mentioned in HPI. PAST MEDICAL HISTORY: Noted for: 1. Hypertension. 2. Hyperlipidemia. 3. Diastolic heart failure with an echo of 50-60%. 4. Recurrent UTIs. 5. Coronary artery disease. 6. Chronic lymphedema. 7. Anemia. 8. Congestive heart failure. 9. Decubitus ulcers of the thigh. 10. Hypoglycemia. 11. GERD. PAST SURGICAL HISTORY: Right total knee replacement in 2013, hysterectomy, bilateral intubation in 08/2018 in the context of sepsis and non-STEMI. OUTPATIENT MEDICATIONS: Tramadol 50 mg q. 6 hours pain, Lasix 20 mg daily, Tylenol p.r.n., pantoprazole 40 mg daily. ALLERGIES: No known drug allergies. SOCIAL HISTORY: The patient denies use of tobacco, alcohol or illicit drugs. PHYSICAL EXAMINATION: GENERAL: Pleasant -Djib[place] female patient who is not in apparent pain or distress, but appears lethargic and tired. VITAL SIGNS: Blood pressure is 133/59 mmHg, heart rate is 59 beats per minute, respirations 20 per minute, temperature 36.5 degrees. CONSTITUTIONAL: The patient appears lethargic, tired, but not in apparent distress. HEENT: Anicteric sclerae. Intact extraocular motions. NECK: Supple without JVD, carotid bruits or lymphadenopathy. I do not appreciate thyromegaly. CHEST: Noted for moderate air entry bilaterally with scattered rales, bibasilar crackles. HEART: Regular rate and rhythm without murmurs or gallops. ABDOMEN: Soft and lax without tenderness or organomegaly. She has active bowel sounds. EXTREMITIES: Lower extremity exam is noted for +1 edema bilaterally with faint pedal pulses. NEUROLOGIC: The patient is lethargic, but arousable, interactive, oriented to time, place and person. The rest of her examination was grossly nonfocal. PSYCHIATRIC: Pleasant, interactive, appropriate. Normal mood and affect. [address] [address] CONSULTATION Name: ANGELIQUE BULLOCK Room #: 450-P ADM IN M.R.#: [id number] Admission: 11/23/18 Attend Phys: Soy Morin MD Discharge: Date of : 48 Report #: [id number] LABORATORY DATA: Blood glucose values are as noted in HPI. Sodium 138, but got as low as 132 back in 10/2018, potassium 5.0, chloride 103, CO2 of 29, anion gap 6, BUN 23, creatinine 1.9. Lipase 66, AST 171, total bilirubin 0.6, calcium 7.7, phosphorus 1.9, magnesium 1.5, alkaline phosphatase , ALT 47, GGTP 322, total protein 6.4, albumin 1.9, GFR 32. Lactic acid 1.5. Total CPK 129. BNP 70615. Free T4 0.2. Free T3 0.27 that back in August 2018. White blood count 8.6, hemoglobin 7.1, hematocrit 22, platelets 116. Prealbumin 4.2. Sed rate 132. TSH 0.984. Hemoglobin A1c 4.3. ASSESSMENT AND PLAN: 1. Hypoglycemia: As noted above, the patient has had issues with intractable, recurrent, somewhat asymptomatic spontaneous hypoglycemia in the absence of active therapy with hypoglycemic agents. Given this context, I believe it would be rather important to attempt to pinpoint an etiology for these occurrences. That said, the patient will be evaluated with a C-peptide, insulin, proinsulin levels in addition to screening for adrenal insufficiency with an ACTH and cortisol level. Subsequent workup will be based on the findings of this workup. 2. Depending on whether or not we could find an etiology to hypoglycemia, I would certainly gently advised to consider an alternative for metoprolol therapy as it threatens to worsen hypoglycemia primarily on the grounds of masking hypoglycemic symptoms. 3. Hypothyroidism. The patient's records shows show a markedly low free thyroid hormone indices in 08/2018. However, this could have been in the setting of her critical illness at the time and possibly due to sick euthyroid at that time. I would like to evaluate her current state with an up to date TSH and free T4. 4. Congestive heart failure. The patient continues to have issues in this regard. Management is as per hospital medicine. 5. Chronic kidney disease stage 4, stable. I certainly appreciate this consultation by Dr. Rene. <ELECTRONICALLY SIGNED> By: Elaine Sargent MD 11/30/18 0810 [id number] Elaine Sargent MD /nt
[2018-11-30 09:20] VITALS: BP 144/67
--- NOTE | 2018-11-30 14:02 | NUR ---
PT'S DTR PASSED YESTERDAY. [facility] REP GOT APPLICATION SIGNED THIS AFTERNOON. SHE WILL EMAIL COPY TO CM TO PROVIDE TO [facility]. DI KIM WILL NEED TO GET SUPPORTING DOCUMENTATION TOGETHER TO PROVIDE TO [facility] FOR THEIR CORPOORATE TO REVIEW FOR POSSIBLE ADMISSION. CM TO FOLLOW INDICATED WITH DC PLANNING.
[2018-11-30 14:06] VITALS: BP 134/68
--- NOTE | 2018-11-30 17:38 | NUR ---
Assumed pt care this am pt still non compliant with care plan. Midline in place IV fluids running rate changed to 100 as per discussion with Dr. Rene since pt refuses to eat for most of the time. External FC in place draining yellow urine. For dinner pt only wanted to eat her potato chip, cookie and requested for a lemon [place] soda. Pt only turned when she needed to be changed and refused to be repositioned to avoid pressure ulcers. Pt refused medication for low blood sugar and would take a times apple jiuce. Pt denies pain though facial grimaces are observed with pt tries to move, pt declines pain medication when offered. POC followed.
[2018-11-30 19:51] VITALS: BP 158/82
--- NOTE | 2018-12-01 04:12 | NUR ---
Pt. has refused to be turned and repositioned during the shift. She has been educated on the importance of this to prevent any skin breakdown. Pt. becomes angry and voices that she just wants to be left alone. Refuses jesi care. Po fluids also encouraged, but will only take few sips of fluids. Pt. did c/o hurting all over and requested a pain pill. Po tramadol given (see emar) with some relief noted. Bed alarm is on.
--- NOTE | 2018-12-01 05:30 | NUR ---
Blood sugar 66 this am and apple juice was given. Recheck blood sugar was at 82.
[2018-12-01 05:37] VITALS: BP 148/60
[2018-12-01 07:13] VITALS: BP 145/75
--- NOTE | 2018-12-01 11:28 | NUR ---
ASSUMED CARE OF PATIENT AT 0715, PATIENT ALERT AND ORIENTED. PATIENT DENIES PAIN THIS AM. PATIENT REFUSING MEDS AND BLOOD SUGARS, LAST BLOOD SUGAR CHECK 82, PATIENT ATE SMALL AMT OF BREAKFAST. PATIENT CONTINUES ON ISOLATION FOR C-DIFF/MRSA-RESPIRATORY. THIS RN NOTIFIED DR JAMES OF HEART RATE 49, METOPROLOL HELD PER THIS RN, AND ALSO NOTIFIED DR JAMES OF LOW TEMP 94.6. DR JAMES STATED DO LAB TSH, BUT WAS DONE AND WAS NEGATIVE. THIS RN AND DR JAMES WENT TO THE ROOM, SHE WANTED TO SHE HER WOUND, BUT PATIENT REFUSED DUE TO PAIN IN HER LEGS. PATIENT STATES IN FRONT OF DR JAMES THAT SHE WANTS COMFORT CARE ONLY. THIS RN NOTIFIED GEETA/JUDY OF THE PATIENT REQUEST, GRANDDAUGHTER AGREE WITH THIS DECISION, HAD SECOND NURSE CIARRA/RN SPEAK TO GRANDDAUGHTER TO VERIFY HER AGREEING WITH PATIENT REQUEST FOR COMFORT CARE ONLY. THIS RN NOTIFIED DR JAMES FOR COMFORT CARE ORDER. D10 WILL CONTINUE AT 100CC/HR PER RIGHT UPPER ARM MIDLINE. WILL CONTINUE TO MONITOR. THE GRANDDAUGHTER ALSO TO VERIFY THIS REQUEST. THIS RN NOTIFIED DR JAMES FOR COMFORT CARE ORDER ONLY. PATIENT WILL CONTINUE D10 AT 100CC/HR PER RIGHT FOREARM IV. WILL CONTINUE TO MONITOR.
--- NOTE | 2018-12-01 14:39 | NUR ---
Consult Order [id number] completed. This child neurologist met with the patient. This child neurologist has previous experiences with this 68 year old patient. Reviewing the notes her daughter very recently. We discussed her daughter's as it was some type of stroke and she was in her 50's. Patient assured this child neurologist there was no corelation between the of her daughter and her desire for comfort care. The patient and the daughter lived together. This child neurologist is concerned the patient has lost her hope and belief of good things ahead in the future. We discussed her grandchildren and other things that bring her bettye. We also discussed her daughter's potential . This would probalby give her more closure and potentially hope getting to see other family. This child neurologist will follow up with patient. or if arrangements had marie made yet.
--- NOTE | 2018-12-02 05:21 | NUR ---
Pt. rested quietly during the night when checked on during frequent rounds. No c/o pain offered. She has been refusing to be turned and repositioned, jesi care,fluids when offered,reassessment and all other cares. She voices that she just wants to be left alone and can get easily annoyed when cares offered frequently. Bed alarm is on. Ivf fluids infusing without difficulty.
[2018-12-02 16:00] VITALS: BP 150/87
--- NOTE | 2018-12-02 19:32 | NUR ---
ASSUMED CARE 0700, ALERT X3,IRRITABLE, WEAK, REFUSES TURNING AND MORNING VS. COMPLIANT WITH IV MEDICATIONS AND AFTERNOON VS. PT DECLINED BREAKFAST, ATE 50% OF NOON MEAL, AND 25% DINNER. CONTINUES ON COMFORT CARE. LIKELY DC TO LTC ON HOSPICE. CALL LIGHT IN REACH.
[2018-12-02 20:50] VITALS: BP 168/79
[2018-12-03 03:58] VITALS: BP 154/75
--- NOTE | 2018-12-03 06:44 | NUR ---
Pt. rested quietly at intervals during the night when checked on during frequent rounds. Pt. more cooperative with cares during the night. She let staff turn and reposition her times two. Florinda care given and bed linens were changed. Tylenol given for pain (see emar) with some relief noted. Bed alarm is on.
[2018-12-03 07:42] VITALS: BP 153/77
--- NOTE | 2018-12-03 09:18 | NUR ---
Followup. Hospice being considered. Diet as tolerated.
--- NOTE | 2018-12-03 12:11 | NUR ---
ALERT, PAIN MANAGED WITH MEDICATIONS, REMAINS ON COMFORT CARE. HANDLEY CATHERTER PLACED. DECLINED MORNING MEAL. FALL PRECAUTION IN PLACE WITH CALL LIGHT IN REACH. NO PLANS TO DC TODAY. CONTINUE TO MONITOR
--- NOTE | 2018-12-03 14:10 | NUR ---
[facility] WITH [facility] REASSESSED PT THIS AM AND SHE INDICATED THAT PT STILL ISN'T APPROPRIATE FOR DIRECT HOSPICE HOUSE ADMISSION. CM [place] COPY OF [place] [facility] INDICATED THAT THEY WOULD NEED TO REACH OUT TO GDTR FOR SUPPORTING DOCUMENTION NEEDED. CM TO FOLLOW INDICATED WITH DC PLANNING.
[2018-12-03 20:07] VITALS: BP 160/69
--- NOTE | 2018-12-04 05:36 | NUR ---
PT IS ON COMFPRT CARE.Q2 TURN TOLERATED.PT HAS HANDLEY ON.PT REFUSE ACCU CHECKS.PT COMPLAINED ABOUT PAIN BEING 10 AND REQUESTED FOR TYLENOL.MORPHINE OFFERED BUT DECLINED.POC CONTINUES TILL EOS
[2018-12-04 07:44] VITALS: BP 142/67
--- NOTE | 2018-12-04 16:04 | NUR ---
Following for d/c planning needs. Spoke with Anupama, area coordinator at [facility]. She said they declined pt and will not consider her at this time.
--- NOTE | 2018-12-04 18:51 | NUR ---
ASSUMED CARE AT 0700, SHIFT ASSESSMENT DONE, MEDS GIVEN, VSS. DENYING ACHS, ON IV ANTIBIOTCS. PLAN FOR PT IS TO GO TO HOPSICE. APPETITE VERY POOR, ENCOURAGED TO EAT AND DRINK. WILL CONTNUE TO ASSESS AND ASSIST WITH ADLs NEEDED.
[2018-12-04 19:22] VITALS: BP 154/74
--- NOTE | 2018-12-05 03:42 | NUR ---
ASSUMED CARE AROUND 1900. AXOX2. REFUSES ALL CARES BUT VITAL SIGNS. HANDLEY INTACT. MIDLINE INTACT. NO S/S ACUTE DISTRESS NOTED OR REPORTED AT THIS TIME. WILL CONT TO MONITOR FOR ANY CHANGES IN CONDITION.
[2018-12-05 07:33] VITALS: BP 133/58
--- NOTE | 2018-12-05 13:38 | NUR ---
PT ALERT AND ORIENTEDX2-3, VSS, DENIES SOA. PATIENT HAS PAIN IN LEGS BUT REFUSED PAIN MEDIATON. ZOSYN GIVEN AND IV FLUIDS RUNNING. MIDLINE REMAINS INTACT. HANDLEY PATENT, URINE YELLOW. PATIENT POOR FOOD INTAKE. PATIENT ALLOWED MORNING ACCU CHECK, 64, APPLE JUICE GIVE. PATIENT REFUSED FOLLOW UP ACCU CHECK. NO SIGNS OF DISTRESS. WILL CONTINUE TO MONITOR.
[2018-12-05 20:01] VITALS: BP 128/56
--- NOTE | 2018-12-06 04:27 | NUR ---
PROGRESS PT NOT PROGRESSING STILL REFUSING MOST CARES. HAS BEEN REQUESTING TO BE REPOSITIONED. BLOOD SUGAR LOW 43 AT MN APPLEJUICE WITH SUGAR GIVEN PT REFUSED GLUCOSE WOULD ONLY TAKE APPLEJUICE. RECHECK WAS 41 MORE JUICE GIVEN AND PT UP TO 73 ON RECHECK. SKIN REMAINED WARM AND DRY PT DENIED SYMPTOMS OF HYPOGLYCEMIA. 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
[2018-12-06 08:37] VITALS: BP 114/50
[2018-12-06] MEDS ORDERED: GLUTOSE GEL 1515 G1 PO (15:37)
[2018-12-06] MEDS ORDERED: DEXAMETHASONE 44 M1 PO (15:39)
[2018-12-06] MEDS ORDERED: ONDANSETRON HCL4 M1 IV PUSH (15:46)
[2018-12-06] MEDS ORDERED: NYAMYC15 GM TOP (15:46)
[2018-12-06] MEDS ORDERED: MACROBID 100 M100 MG PO (15:48)
[2018-12-06 15:54] VITALS: BP 125/51
[2018-12-06] MEDS ORDERED: LEVAQUIN 500 M500 M3 PO (15:59)
--- NOTE | 2018-12-06 16:35 | NUR ---
CARE TEAM INDICATED THAT PT IS WILLING AND PATICIPATORY IN THERAPY AND WANTS TO DC BACK SKILLED. [facility] HAD INDICATED THAT THEY ARE WILLING AND ABLE TO ACCEPT PT BACK THIS DAY SKILLED OR MEDICAID PENDING LTC. SKILLED ORDERS WERE WRITTEN. CM SPOKE WITH PT'S GDTR JUDY AND SHE IS AGREEABLE WITH PT RETURNING TO [facility] THIS DAY SKILLED UNDER HER MEDICARE AND STAYING THERE LTC MEDICAID PENDING IF NEEDED. CHART COPY MADE. ORDERS TO BE FAXED. PT WILL NEED STRETCHER VAN TRANSPORT. REPROT TO BE CALLED TO THE FACILITY AT . NO OTHER CM INTERVENTION INDICATED. CM PROVIDED PT'S GDTR WITH NUMBER FOR [employer] FOR ASSIST WITH MEDICAID AND INDICATED THAT STAFF AT FACILITY CAN ALSO ASSIST.
--- NOTE | 2018-12-06 20:28 | NUR ---
ASSUMED PT CARE AT 7AM.PT IN BED AT ALLTIMES. TURNED AND REPOSTIONED Q2H FOR COMFORT.PT HAS LARGE BM X 2 THIS SHIFT.COMPLETE BED CHANGE AND PERICARE GIVEN. DR JAMES HERE.DC ORDER NOTED.[facility] ARRANGED TRANSPORT.AT 1910,PT LEFT VIA AMBULANCE TO [facility] AFTER MIDLINE DC'D.REPORT OFF TO [facility].
--- NOTE | 2018-12-07 07:29 | NUR ---
PATIENT D/C BEFORE OT EVAL.
--- NOTE | 2018-12-31 20:43 | HC ---
[facility] [place] [address] CONSULTATION Name: ANGELIQUE BULLOCK Room #: 450-P [facility] IN M.R.#: [id number] Admission: 11/23/18 Attend Phys: Soy Morin MD Discharge: 12/06/18 Date of : 48 Report #: [id number] THIS REPORT FOR: //name// CC: Jerry Morin PALLIATIVE CARE CONSULTATION REQUESTING PHYSICIAN: Dr. Chang. CHIEF COMPLAINT: Anemia. HISTORY OF PRESENT ILLNESS: The patient is a 68-year-old female who presented to [facility] with apparent altered mental status and at that time was found to have a hemoglobin of about 7.2, which subsequently has decreased to 6.3, although stable over the last 3 days at 6.3 again. She was found to have a left abdominal wall hematoma, which may have been possible origin, but also she has significant other factors including significantly elevated AST and alkaline phosphatase. She has a history of cholecystitis, which appears to be chronic in nature. She is not having pain related to this. She also has chronic kidney disease with acute kidney injury. Additionally, she has a history of diastolic CHF. The biggest issue is that the patient has been refusing all medical cares. Previously, she had been intubated over the last approximately 1 month ago with a PEG tube placed due to pyelonephritis. The patient has subsequently had stated to primary team that she may want to go on hospice. The patient's daughter, her surrogate decision maker, unfortunately has also suffered a stroke and this has prevented her from being actively participating in decision making. PAST MEDICAL HISTORY: Diastolic CHF, severe protein-calorie malnutrition, history of DVT, recent sepsis with PEG tube placement, cerebrovascular disease, history of C. diff, chronic lymphedema, history of cholecystitis. MEDICATIONS: Toprol, Protonix, folate, vancomycin and Lasix. PAST SURGICAL HISTORY: Hysterectomy, right total knee arthroplasty. SOCIAL HISTORY: Again, daughter is currently hospitalized with an apparent massive stroke and granddaughter is right now next to kin, ____ is her name who I have spoken with today. CODE STATUS: The patient is currently listed as DNR. This has been confirmed. ALLERGIES: No known drug allergies. FAMILY HISTORY: Noncontributory. [facility] [address] [place] [address] CONSULTATION Name: ANGELIQUE BULLOCK Room #: 450-P [facility] IN M.R.#: [id number] Admission: 11/23/18 Attend Phys: Soy Morin MD Discharge: 12/06/18 Date of : 48 Report #: [id number] REVIEW OF SYSTEMS: GENERAL: At times, somewhat difficult to obtain. She denies pain in general, denies any fevers or chills. CARDIOVASCULAR: Denies chest pain, palpitations. RESPIRATORY: Denies shortness of breath, cough. ABDOMEN: Denies nausea, vomiting or constipation. PSYCHIATRIC: Denies anxiety. PHYSICAL EXAMINATION: VITAL SIGNS: Temperature 36.5, pulse 57, respirations 18, blood pressure 134/60, 100% on nasal cannula. GENERAL: She is alert and oriented at least x 1, in no acute distress. HEENT: Extraocular muscles appear to be intact. Normocephalic, atraumatic. CARDIOVASCULAR: Regular rate and rhythm without murmur. RESPIRATORY: Clear to auscultation bilaterally. No wheezes, rales or rhonchi. ABDOMEN: Soft, nondistended. EXTREMITIES: Does have lower extremity edema. LABORATORY DATA: Include hemoglobin 6.3, creatinine 2.1, AST 171, mag 1.5. Blood sugars have ranged from 47-86, alkaline phosphatase over 3200. ASSESSMENT AND PLAN: 1. Anemia, unknown significant origin at this time, could be partially responsible by the abdominal wall hematoma, but certainly other factors in play. The patient does not want any kind of transfusion. I have discussed this extensively with her. Unfortunately, she does not demonstrate capacity for decision making with regards to things such as hospice; however, she does have next of kin as her decision maker, which is ____, who is supportive of potential hospice care, although she wished to talk with [facility] prior to making that decision fully. The patient has been confirmed her DNR status. I spent approximately 35 minutes on advanced directive and advanced care planning. 2. Hypoglycemia. Apparently had been prior confirmed with laboratory testing as much significantly higher than her fingersticks. This may be anomalous. Certainly, if present, it does not coy well, but again additional workup would be needed at this time. She does not appear to have significant symptoms with these low blood sugars. 3. Delirium versus dementia. Certainly, she has some aspect of memory loss. This is certainly influencing her capacity for decisions at this time, especially with regards to hospice and was not able to understand and repeat the things that I was telling her with regards to this decision, but a surrogate decision maker was able to make this for her at least in the fact of next of kin. I have discussed this with rn social work at this time. They are referring the patient for hospice level of care, probably can proceed back to long-term care [facility] [address] [place] [address] CONSULTATION Name: ANGELIQUE BULLOCK Room #: 450-P [facility] IN M.Cam.#: [id number] Admission: 11/23/18 Attend Phys: Soy Morin MD Discharge: 12/06/18 Date of : 48 Report #: [id number] facility. She appears to be comfortable at this time, so no additional medication changes needed. <ELECTRONICALLY SIGNED> By: Danny Duggan DO [id number]/31/[id number] Danny Duggan DO /nt
== END 2018-12-06 20:48 | DRG 291 ==
LOC: ER 14:35 → 4W 17:00 → EROBS 17:00 → 4W 17:31
PROVIDERS: Hospitalist; Internal Medicine; Nurse Practitioner; Nurse Practitioner Family; ADMIT Internal Medicine
PROC: 05HB33Z Insertion of Infusion Device into Right Basilic Vein, Percutaneous Approach (ICD-10-PCS; principal; 2018-11-29)
DX: I13.0 Hypertensive heart and chronic kidney disease with heart failure and stage 1 through stage 4 chronic kidney disease, or unspecified chronic kidney disease (principal); I50.33 Acute on chronic diastolic (congestive) heart failure; E43 Unspecified severe protein-calorie malnutrition; N17.9 Acute kidney failure, unspecified; N18.4 Chronic kidney disease, stage 4 (severe); N39.0 Urinary tract infection, site not specified; E27.40 Unspecified adrenocortical insufficiency; D64.9 Anemia, unspecified; E78.5 Hyperlipidemia, unspecified; K21.9 Gastro-esophageal reflux disease without esophagitis; E11.22 Type 2 diabetes mellitus with diabetic chronic kidney disease; Z96.651 Presence of right artificial knee joint; E11.649 Type 2 diabetes mellitus with hypoglycemia without coma; I25.10 Atherosclerotic heart disease of native coronary artery without angina pectoris; L89.899 Pressure ulcer of other site, unspecified stage; G47.33 Obstructive sleep apnea (adult) (pediatric); Z66 Do not resuscitate; M24.461 Recurrent dislocation, right knee; B96.5 Pseudomonas (aeruginosa) (mallei) (pseudomallei) as the cause of diseases classified elsewhere; S30.1XXA Contusion of abdominal wall, initial encounter; T68.XXXA Hypothermia, initial encounter; Z51.5 Encounter for palliative care; R62.7 Adult failure to thrive; Z68.37 Body mass index [BMI] 37.0-37.9, adult; Z90.710 Acquired absence of both cervix and uterus; Z86.718 Personal history of other venous thrombosis and embolism; Z93.1 Gastrostomy status; Z86.73 Personal history of transient ischemic attack (TIA), and cerebral infarction without residual deficits; I25.2 Old myocardial infarction; Z99.3 Dependence on wheelchair; X58.XXXA Exposure to other specified factors, initial encounter; Y93.89 Activity, other specified; Y92.89 Other specified places as the place of occurrence of the external cause; Y99.8 Other external cause status
CPT/HCPCS: 10040; 27000